=== PATIENT | male | born 1995 | race African-American/Black ===

== ENCOUNTER 2017-10-06 20:49 | Inpatient (IN) | payer OTHER ==
[~2017-10-06] VITALS: Ht 165.1 cm; Wt 129.0 kg
[~2017-10-06 20:49] MED LIST: PIPERACIL-TAZO 4.5 GM PREMIX 100 ML IV SCH
[2017-10-06 20:51] VITALS: BP 144/83; PULSE 116; RESP 16; TEMP 101.8; O2SAT 99
[2017-10-06 21:11] VITALS: BP 159/100; PULSE 156; RESP 24; TEMP 99; O2SAT 99
[2017-10-06] MEDS ORDERED: SODIUM CHLOR 0.9% 1000 ML INJ 1,000 ML IV ONE ×3 (21:26)
[2017-10-06] MEDS ORDERED: SODIUM CHLOR 0.9% 1000 ML INJ 600 ML IV ONE (21:26)
[2017-10-06] MEDS ORDERED: PIPERACIL-TAZO 4.5 GM PREMIX 100 ML IV ONE (21:30)
[2017-10-06] MEDS ORDERED: VANCOMYCIN INJ 1,000 MG in SODIUM CHLOR 0.9% 250 ML INJ 250 ML IV ONE (21:30)
--- NOTE | 2017-10-06 21:36 | PD ---
HPI Chief Complaint: GI Complaint Time Seen by Provider: 21:19 Travel History International Travel<30 days: No Contact w/Intl Traveler<30days: No Traveled to known affect area: No History of Present Illness HPI 22 yo m presenting to the ED with a cc of draining abscess on his scrotal region /inguinal region. He states that this began about one week ago and he tried home remedies with hot compresses. He brought the lesion to a head and it began draining a purulent foul smelling material. He does acknowledge fevers, chills, nausea, vomiting. No SOB or CP. No headaches or vision changes. He has not been sexually active in over a year. He does shave the inguinal region, mons pubis and scrotum. He states that he has had these numerous times in the past. [facility], [facility] Past Medical History Medical History: Denies Significant Hx Past Surgical History Surgical History: No Previous Surgery Social History Alcohol Use: Yes (RARE) Tobacco Use: No Substance Use: No Allergies-Medications (Allergen,Severity, Reaction): Coded Allergies: No Known Allergies (Unverified , 10/06/17) Review of Systems Except as stated in HPI: all other systems reviewed are Neg Physical Exam Narrative GENERAL: patient is laying in bed sweating appears ill. Morbidly obese SKIN: L inguinal region/pannus has a 5cm x 9cm necrotic ulcer with surrounding edema and erythema. There is purulent and foul smelling (smells of pseudomonas) acanthosis nigricans bilateral inguinal regions HEAD: Atraumatic. Normocephalic. EYES: Pupils equal and round. No scleral icterus. No injection or drainage. ENT: No nasal bleeding or discharge. Mucous membranes pink and moist. NECK: Trachea midline. No JVD. CARDIOVASCULAR: Tachycardia, with regular rhythm. 2+ but equal pulses in all 4 extremities. ENDOCRINE: Bedside glucose 421 RESPIRATORY: No accessory muscle use. Clear to auscultation. Breath sounds equal bilaterally. tachypneic GASTROINTESTINAL: Abdomen soft, moderately tender in the soft tissue area no crepitance is felt limited examination secondary to habitus., nondistended. Hepatic and splenic margins not palpable. MUSCULOSKELETAL: Extremities without clubbing, cyanosis, or edema. No obvious deformities. NEUROLOGICAL: Awake and alert. No obvious cranial nerve deficits. Motor grossly within normal limits. Five out of 5 muscle strength in the arms and legs. Normal speech. PSYCHIATRIC: Appropriate mood and affect; insight and judgment normal. Data Data Last Documented VS Vital Signs Date Time Temp Pulse Resp B/P (MAP) Pulse Ox O2 Delivery O2 Flow Rate FiO2 10/06/17 21:11 99.0 156 24 159/100 (119) 99 Room Air Orders Orders Sepsis Workup Initiated (10/06/17 ) Complete Blood Count With Diff (10/06/17 21:) Comprehensive Metabolic Panel (10/06/17 21:26) Prothrombin Time / Inr (Pt) (10/06/17 21:26) Act Partial Throm Time (Ptt) (10/06/17 21:26) Lactic Acid Sepsis Protocol (10/06/17 21:) Magnesium (Mg) (10/06/17 21:) Phosphorus (Po4) (10/06/17 21:) Lipase (10/06/17 21:) Ckmb (Isoenzyme) Profile (10/06/17 21:) Troponin I (10/06/17 21:) Urinalysis - C+S If Indicated (10/06/17 21:26) Blood Culture (10/06/17 21:26) Chest, Single Ap (10/06/17 21:26) Blood Glucose (10/06/17 21:26) Ecg Monitoring (10/06/17 21:) Iv Access Insert/Monitor (10/06/17 21:26) Oximetry (10/06/17 21:) Oxygen Administration (10/06/17 21:26) Ct Abd/Pel W Iv Contrast(Rout) (10/06/17 21:26) Sodium Chlor 0.9% 1000 Ml Inj (Ns 1000 M (10/06/17 21:26) Sodium Chlor 0.9% 1000 Ml Inj (Ns 1000 M (10/06/17 21:26) Sodium Chlor 0.9% 1000 Ml Inj (Ns 1000 M (10/06/17 21:26) Sodium Chlor 0.9% 1000 Ml Inj (Ns 1000 M (10/06/17 21:26) Vancomycin Inj (Vancomycin Inj) (10/06/17 21:30) Piperacil-Tazo 4.5 Gm Premix (Zosyn 4.5 (10/06/17 21:30) Blood Gas Venous (Vbg) (10/06/17 22:03) Westergren Sedimentation Rate (10/06/17 22:22) C-Reactive Protein (Crp) (10/06/17 22:22) Consult General Surgery (10/06/17 ) Clindamycin 900 Mg Premix (Cleocin 900 M (10/06/17 22:30) Iohexol 350 Inj (Omnipaque 350 Inj) (10/06/17 22:32) CKMB (10/06/17 21:45) CKMB% (10/06/17 21:45) Admit To Inpatient (10/06/17 ) Code Status (10/06/17 22:45) Vital Signs (Adult) KIMMY.Q1H (10/06/17 22:45) Activity Bed Rest (10/06/17 22:45) Elevate Head Of Bed (10/06/17 22:45) Intake + Output Q1H (10/06/17 22:45) Diet Npo (10/07/17 Breakfast) Sodium Chlor 0.9% 1000 Ml Inj (Ns 1000 M (10/06/17 22:45) Sodium Chloride 0.9% Flush (Ns Flush) (10/06/17 22:45) Sodium Chloride 0.9% Flush (Ns Flush) (10/07/17 09:00) Acetaminophen (Tylenol) (10/06/17 22:45) Morphine Inj (Morphine Inj) (10/06/17 22:45) Famotidine Inj (Pepcid Inj) (10/07/17 09:00) Ondansetron Inj (Zofran Inj) (10/06/17 22:45) Temazepam (Restoril) (10/06/17 22:45) Albuterol-Ipratropium Neb (Duoneb Neb) (10/06/17 22:45) Complete Blood Count With Diff (10/07/17 04:00) Comprehensive Metabolic Panel (10/07/17 04:00) Magnesium (Mg) (10/07/17 04:00) Phosphorus (Po4) (10/07/17 04:00) Lactic Acid (10/07/17 04:00) Chest, Single Ap (10/07/17 ) Pt Request For Service (10/06/17 22:45) Sales Project Coordinator / Telemetry KIMMY.Q8H (10/06/17 22:45) Heparin Inj (Heparin Inj) (10/06/17 22:45) ^ Initiate Protocol (10/06/17 22:45) Instruction (10/06/17 22:45) [facility] [facility] Information (10/06/17 22:45) Chlorhexidine 2% Cloth (Chlorhexidine 2% (10/07/17 04:00) Chlorhexidine 2% Cloth (Chlorhexidine 2% (10/06/17 22:45) Mrsa Pcr Surveillance (10/06/17 22:45) Docusate Sodium-Senna (Geraldine-Colace) (10/07/17 09:00) Magnesium Hydroxide Liq (Milk Of Magnesi (10/06/17 22:45) Sennosides (Senokot) (10/06/17 22:45) Bisacodyl Supp (Dulcolax Supp) (10/06/17 22:45) Lactulose Liq (Lactulose Liq) (10/06/17 22:45) Inpatient Certification (10/06/17 ) Admit Order (Ed Use Only) (10/06/17 ) Vancomycin Consult Pharmacy (Vancomycin (10/06/17 23:00) Piperacil-Tazo 4.5 Gm Premix (Zosyn 4.5 (10/06/17 05:00) ^ Medication Admin Instruction (10/06/17 22:50) Notify Dr: Other (10/06/17 22:50) Potassium Chlor 40 Meq Premix (Kcl 40 Me (10/06/17 23:00) Potassium Chlor 20 Meq Premix (Kcl 20 Me (10/06/17 23:00) Potassium Chloride Eff (K-Lyte Cl Eff) (10/06/17 23:00) Potassium Chlor 40 Meq Premix (Kcl 40 Me (10/06/17 23:00) Potassium Chlor 20 Meq Premix (Kcl 20 Me (10/06/17 23:00) Magnesium Sulfate Inj (Magnesium Sulfate (10/06/17 23:00) Magnesium Oxide (Mag-Ox) (10/06/17 23:00) Magnesium Sulfate Inj (Magnesium Sulfate (10/06/17 23:00) Potassium Phosphate (K-Phos) (10/06/17 23:00) Sodium Phosphate Inj (Sodium Phosphate I (10/06/17 23:00) Potassium Phosphate (K-Phos) (10/06/17 23:00) Potassium Phosphate Inj (Potassium Phosp (10/06/17 23:00) Clindamycin Inj (Cleocin Inj) (10/07/17 06:00) Labs Laboratory Tests Test 10/06/17 21:45 10/06/17 22:10 10/06/17 22:50 White Blood Count 23.2 TH/MM3 Red Blood Count 5.00 MIL/MM3 Hemoglobin 13.0 GM/DL Hematocrit 39.0 % Mean Corpuscular Volume 78.1 FL Mean Corpuscular Hemoglobin 26.1 PG Mean Corpuscular Hemoglobin Concent 33.4 % Red Cell Distribution Width 13.7 % Platelet Count 234 TH/MM3 Mean Platelet Volume 10.3 FL Neutrophils (%) (Auto) 87.7 % Lymphocytes (%) (Auto) 2.7 % Monocytes (%) (Auto) 9.4 % Eosinophils (%) (Auto) 0.0 % Basophils (%) (Auto) 0.2 % Neutrophils # (Auto) 20.4 TH/MM3 Lymphocytes # (Auto) 0.6 TH/MM3 Monocytes # (Auto) 2.2 TH/MM3 Eosinophils # (Auto) 0.0 TH/MM3 Basophils # (Auto) 0.0 TH/MM3 CBC Comment AUTO DIFF Differential Total Cells Counted 100 Neutrophils % (Manual) 75 % Band Neutrophils % 8 % Lymphocytes % 5 % Monocytes % 12 % Neutrophils # (Manual) 19.3 TH/MM3 Differential Comment FINAL DIFF MANUAL Platelet Estimate NORMAL Platelet Morphology Comment NORMAL Red Cell Morphology Comment NORMAL Erythrocyte Sedimentation Rate 45 mm/hr Prothrombin Time 11.5 SEC Prothromb Time International Ratio 1.0 RATIO Activated Partial Thromboplast Time 30.7 SEC Blood Urea Nitrogen 12 MG/DL Creatinine 1.02 MG/DL Random Glucose 396 MG/DL Total Protein 8.6 GM/DL Albumin 2.0 GM/DL Calcium Level 9.2 MG/DL Phosphorus Level 2.5 MG/DL Magnesium Level 1.6 MG/DL Alkaline Phosphatase 144 U/L Aspartate Amino Transf (AST/SGOT) 40 U/L Alanine Aminotransferase (ALT/SGPT) 20 U/L Total Bilirubin 0.9 MG/DL Sodium Level 119 MEQ/L Potassium Level 4.5 MEQ/L Chloride Level 85 MEQ/L Carbon Dioxide Level 17.5 MEQ/L Anion Gap 17 MEQ/L Estimat Glomerular Filtration Rate 112 ML/MIN Lactic Acid Level 2.4 mmol/L Total Creatine Kinase 106 U/L Creatine Kinase MB LESS THAN 0.5 NG/ML Troponin I LESS THAN 0.02 NG/ML C-Reactive Protein 34.00 MG/DL Lipase 55 U/L Blood Gas Puncture Site DRAWN BY RN Blood Gas Patient Temperature 37.0 Venous Blood pH 7.38 Venous Blood Partial Pressure CO2 29 mmHg Venous Blood Partial Pressure O2 29 mmHg Venous Blood HCO3 17 mmol/L Venous Blood Oxygen Saturation 51 % Venous Blood Oxygen Content 11.2 Vol % Venous Blood Base Excess -7.2 mmol/L Oxygen Delivery Device ROOM AIR Blood Gas Inspired Oxygen 21 % Urine Color YELLOW Urine Turbidity CLEAR Urine pH 6.0 Urine Specific [employer] 1.020 Urine Protein 30 mg/dL Urine Glucose (UA) 1000 mg/dL Urine Ketones 40 mg/dL Urine Occult Blood TRACE Urine Nitrite NEG Urine Bilirubin NEG Urine Urobilinogen 2.0 MG/DL Urine Leukocyte Esterase NEG Urine RBC 1 /hpf Urine WBC 2 /hpf Microscopic Urinalysis Comment CATH-CULT NOT IND MDM Medical Decision Making Medical Screen Exam Complete: Yes Emergency Medical Condition: Yes Differential Diagnosis Cellulitis, Abscess, Necrotizing fasciitis, gangrene, SEPSIS, DKA, hyperglycemia Narrative Course CBC, CMP, ESR, CRP, Lactate, CT abdomen/pelvis, VBG, Urinalysis, General surgery consult, Vanc/Zosyn, bolus 30cc/Kg. Patient roomed in emergency department, although crepitance is felt patient does have necrotic center and appears very ill. Vital signs meet surgical criteria already and the patient was started on vancomycin and Zosyn. Bedside glucose was in excess of 400 diagnosing him with diabetes tonight. Patient was taken expeditiously to CAT scan where a contrasted CAT scan shows significant subcutaneous air increasing suspicion for necrotizing fasciitis of the abdominal wall. Dr. Valles was paged at [phone]. Coverage was expanded to include clindamycin for anaerobic coverage. Patient discussed with Dr. Marie at [phone] preparing for [facility] admission. Still awaiting callback from Dr. Valles At 2300 the results were discussed with the patient and recommended ICU admission and he is agreeable. His received 2 L normal saline at this time the heart rate remains elevated. Spoke to Dr. Marie [phone], he states that per Dr. Mackenzie current procedure is to communicate with the intensive care unit physician and once cleared for surgery that's when the patient should have operative debridement. This recommendation was discussed with Dr. Marie at 2315 who is in route to see the patient. At 2330 Dr. Marie is at the bedside and agrees that the benefits outweigh the risks for surgery. Dr. Valles has been paged again. At [address] Valles that he needs to come in and see the patient now. Dr. Valles informs me that he is already on his way in to the hospital. Critical Care Narrative Aggregate critical care time was 35 minutes. Time to perform other separately billable procedures was not included in the critical care time. My time did not include minutes spent treating any other patients simultaneously or on activities that did not directly contribute to the patient's treatment. The services I provided to this patient were to treat and/or prevent clinically significant deterioration that could result in: , disability, organ failure. I provided critical care services requiring my management, as noted below: Chart data review, documentation time, medication orders and management, vital sign assessments/reviewing monitor data, ordering and reviewing lab tests, ordering and interpreting/reviewing x-rays and diagnostic studies, care of the patient and discussion of the patient with the admitting physicians. Diagnosis Primary Impression: Sepsis Additional Impressions: Severe sepsis Necrotizing fasciitis Admitting Information Admitting Physician Requests: Admit Condition: Critical Ishan Hurt MD Oct 06, 2017 21:36
[2017-10-06 22:00] VITALS: BP 162/96; PULSE 150; RESP 27; O2SAT 100
[2017-10-06 22:15] LABS: AUTOMATED NEUTROPHIL # 20.4 TH/MM3 (1.8-7.7); BASOPHIL % 0.2 % (0.0-2.0); LYMPH % 2.7 % (9.0-44.0); LYMPHOCYTE # 0.6 TH/MM3 (1.0-4.8); MEAN CELL VOLUME 78.1 FL (80.0-100.0); MEAN CORPUSCULAR HEMOGLOBIN 26.1 PG (27.0-34.0); MEAN CORPUSCULAR HGB CONC 33.4 % (32.0-36.0); MONO % 9.4 % (0.0-8.0); NEUT % 87.7 % (16.0-70.0); PLATELET COUNT 234 TH/MM3 (150-450); RED CELL DISTRIBUTION WIDTH 13.7 % (11.6-17.2); WHITE BLOOD COUNT 23.2 TH/MM3 (4.0-11.0)
[2017-10-06 22:18] LABS: APTT (PATIENT) 30.7 SEC (24.3-30.1); HEMO FLAGS AUTO DIFF; PROTHROMBIN TIME - PATIENT 11.5 SEC (9.8-11.6)
[2017-10-06 22:22] LABS: BLOOD GAS VENOUS BASE EXCESS -7.2 mmol/L (-2-2); BLOOD GAS VENOUS HCO3 17 mmol/L (22-26); BLOOD GAS VENOUS O2 CONTENT 11.2 Vol % (9.0-17.0); BLOOD GAS VENOUS O2 HGB SAT 51 % (70-76); BLOOD GAS VENOUS PCO2 29 mmHg (44-48); BLOOD GAS VENOUS PO2 29 mmHg (35-40); BLOOD GAS VENOUS pH 7.38 (7.360-7.400); CRITICAL VALUE YES; OXYGEN DEVICE ROOM AIR
[2017-10-06 22:23] LABS: FIO2 21 %; STAT YES
--- NOTE | 2017-10-06 22:27 | RADRPT ---
EXAM DATE/TIME: 10/06/2017 22:17 [facility] COMPARISON: No previous studies available for comparison. INDICATIONS : Fever and chest pain. MEDICAL HISTORY : None. SURGICAL HISTORY : None. ENCOUNTER: Initial ACUITY: 3 days PAIN SCORE: 3/10 LOCATION: chest FINDINGS: A single view of the chest demonstrates the lungs to be symmetrically aerated without evidence of mas s, infiltrate or effusion. The cardiomediastinal contours are unremarkable. Osseous structures are intact. CONCLUSION: The lungs are clear. Issac Romano MD on October 06, 2017 at 22:25 Board Certified Radiologist. This report was verified electronically.
[2017-10-06] MEDS ORDERED: CLINDAMYCIN 900 MG/DEX PREMIX 50 ML IV ONE (22:30)
[2017-10-06] MEDS ORDERED: IOHEXOL 350 MG/ML 10 ML VIAL (for RAD DIAG) IVCONTRAST ONE (22:32)
[2017-10-06 22:35] LABS: ALKALINE PHOSPHATASE 144 U/L (45-117); ALT (GPT) 20 U/L (12-78); ANION GAP 17 MEQ/L (5-15); AST (GOT) 40 U/L (15-37); BICARBONATE 17.5 MEQ/L (21.0-32.0); BLOOD UREA NITROGEN 12 MG/DL (7-18); CHLORIDE 85 MEQ/L (98-107); CREATINE KINASE 106 U/L (39-308); GLOMERULAR FILTRATION RATE 112 ML/MIN (>89); MAGNESIUM 1.6 MG/DL (1.5-2.5); TOTAL BILIRUBIN ADULT 0.9 MG/DL (0.2-1.0)
[2017-10-06 22:45] LABS: POTASSIUM 4.5 MEQ/L (3.5-5.1)
[2017-10-06] MEDS ORDERED: LACTULOSE SYRUP 20 GM/30 ML CUP PO PRN (22:45)
[2017-10-06] MEDS ORDERED: SODIUM CHLORIDE 0.9% FLUSH 10 ML FLUSH IV FLUSH PRN (22:45)
[2017-10-06] MEDS ORDERED: MISCELLANEOUS NURSING INFORMATION XX SCH (22:45)
[2017-10-06] MEDS ORDERED: CHLORHEXIDINE GLUCONATE 2 % 1 PACK (2 CLOTHS) TOP PRN (22:45)
[2017-10-06] MEDS ORDERED: BISACODYL 10 MG SUPP RECTAL PRN (22:45)
[2017-10-06] MEDS ORDERED: MAGNESIUM HYDROXIDE SUSP 30 ML CUP PO PRN (22:45)
[2017-10-06] MEDS ORDERED: SENNOSIDES 8.6 MG TAB PO PRN (22:45)
[2017-10-06] MEDS ORDERED: RESP: ALBUTEROL 2.5 MG/IPRATROPIUM 0.5 MG NEB (PRN) INH (22:45)
[2017-10-06] MEDS ORDERED: ONDANSETRON HCL 4 MG/2 ML VIAL IV PUSH PRN (22:45)
[2017-10-06 22:48] LABS: SODIUM (NA) 119 MEQ/L (136-145)
--- NOTE | 2017-10-06 22:50 | RADRPT ---
EXAM DATE/TIME: 10/06/2017 22:23 [facility] COMPARISON: No previous studies available for comparison. INDICATIONS : Sepsis. IV CONTRAST: 98 cc Omnipaque 350 (iohexol) IV ORAL CONTRAST: No oral contrast ingested. RADIATION DOSE: 21.96 CTDIvol (mGy) MEDICAL HISTORY : None SURGICAL HISTORY : None. ENCOUNTER: Initial ACUITY: 1 day PAIN SCALE: 7/10 LOCATION: abdomen TECHNIQUE: Volumetric scanning of the abdomen and pelvis was performed. Using automated exposure control and ad justment of the mA and/or kV according to patient size, radiation dose was kept as low as reasonably achievable to obtain optimal diagnostic quality images. DICOM format image data is available electro nically for review and comparison. FINDINGS: LOWER LUNGS: The visualized lower lungs are clear. LIVER: Homogeneous density without lesion. There is no dilation of the biliary tree. No calcified gallston es. SPLEEN: Normal size without lesion. PANCREAS: Within normal limits. KIDNEYS: Absent right kidney. Hypertrophy of the left kidney measuring 15 cm. There is absence of the renal sinus fat but no definite evidence of hydronephrosis. No calcified renal stones. ADRENAL GLANDS: Within normal limits. VASCULAR: There is no aortic aneurysm. BOWEL/MESENTERY: There are a few gaseous distended loops of small bowel which measure up to 2.9 cm. No air fluid leve ls seen. No evidence of free fluid in the pelvis. ABDOMINAL WALL: There is thickening of the soft tissues of the left lower quadrant anterior and lateral abdominal wal l and multiple collections of gas in the subcutaneous tissues in an area that measures in excess of 1 7 cm. There appears to be discontinuity of the skin and lower lateral. The indurated soft subcutane ous tissues measures in excess of 10 cm in thickness. Induration is present both superficial and jonny p Roe's fascia. The lateral abdominal musculature is symmetric and normal in appearance. Indurat ion does extend into the left inguinal region. RETROPERITONEUM: There is no lymphadenopathy. BLADDER: No wall thickening or mass. REPRODUCTIVE: Within normal limits. INGUINAL: There are several prominent left inguinal lymph nodes which measure up to 1.8 cm in dimension. MUSCULOSKELETAL: Within normal limits for patient age. CONCLUSION: 1. Abnormal subcutaneous tissues in the left lower quadrant with a large area of discharged gas, surr ounding induration of the fat and extension into the left inguinal region. 2. Absent right kidney. Issac Romano MD on October 06, 2017 at 22:43 Board Certified Radiologist. This report was verified electronically.
--- NOTE | 2017-10-06 22:58 | HHI.HP ---
HPI Service Critical Care Medicine Primary Care Physician No Primary Care Physician Admission Diagnosis Severe Sepsis, Necrotizing Fasciitis. Diagnosis: Travel History International Travel<30 Days: No Contact w/Intl Traveler <30 Da: No Traveled to Known Affected Are: No History of Present Illness 22-year-old morbidly obese very pleasant gentleman presents with complaints of draining abscess on his scrotal region/inguinal region. He states that this began about one week ago and he tried home remedies with hot compresses. The lesion began draining a purulent foul smelling material. He does admit fevers, chills, nausea, vomiting. No SOB or CP. No headaches or vision changes. He has not been sexually active in over a year. He does shave the inguinal region, mons pubis and scrotum. He states that he has had these numerous times in the past. Review of Systems Constitutional: COMPLAINS OF: Diaphoretic episodes, Fatigue, Fever, Chills, Dizziness, Change in appetite, Night Sweats, DENIES: Weight gain, Weight loss Endocrine: DENIES: Heat/cold intolerance, Polydipsia, Polyuria, Polyphagia Eyes: DENIES: Blurred vision, Diplopia, Eye inflammation, Eye pain, Vision loss , Photosensitivity, Double Vision Ears, nose, mouth, throat: DENIES: Tinnitus, Hearing loss, Vertigo, Nasal discharge, Oral lesions, Throat pain, Hoarseness, Ear Pain, Running Nose, Epistaxis, Sinus Pain, Toothache, Odynophagia Respiratory: DENIES: Apneas, Cough, Snoring, Wheezing, Hemoptysis, Sputum production, Shortness of breath Cardiovascular: DENIES: Chest pain, Palpitations, Syncope, Dyspnea on Exertion , PND, Lower Extremity Edema, Orthopnea, Claudication Gastrointestinal: COMPLAINS OF: Nausea, Vomiting, Anorexia, DENIES: Abdominal pain, Black stools, Bloody stools, Constipation, Diarrhea, Difficulty Swallowing Genitourinary: DENIES: Sexual dysfunction, Urinary frequency, Urinary incontinence, Urgency, Hematuria, Dysuria, Nocturia, Penile Discharge, Testicular Pain, Testicular Swelling Musculoskeletal: DENIES: Joint pain, Muscle aches, Stiffness, Joint Swelling, Back pain, Neck pain Integumentary: DENIES: Abnormal pigmentation, Nail changes, Pruritus, Rash Hematologic/lymphatic: DENIES: Bruising, Lymphadenopathy Immunologic/allergic: DENIES: Eczema, Urticaria Neurologic: DENIES: Abnormal gait, Headache, Localized weakness, Paresthesias, Seizures, Speech Problems, Tremor, Poor Balance Psychiatric: DENIES: Anxiety, Confusion, Mood changes, Depression, Hallucinations, Agitation, Suicidal Ideation, Homicidal Ideation, Delusions Past Family Social History Allergies: Coded Allergies: No Known Allergies (Unverified , 10/06/17) Past Medical History Denies significant past medical history Past Surgical History No previous surgeries Reported Medications No active medications Active Ordered Medications Current Medications Medications (Trade) Dose Ordered Sig/Josh Route PRN Reason Start Time Stop Time Status Last Admin Dose Admin Clindamycin Phosphate/Dextrose 50 ml @ 100 mls/hr ONCE ONCE IV 10/06/17 22:30 10/06/17 22:59 Sodium Chloride 1,000 ml @ 154 mls/hr Q6H30M IV 10/06/17 22:45 Sodium Chloride (NS Flush) 2 ml UNSCH PRN IV FLUSH FLUSH AFTER USING IV ACCESS 10/06/17 22:45 Sodium Chloride (NS Flush) 2 ml BID IV FLUSH 10/07/17 09:00 UNV Acetaminophen (Tylenol) 650 mg Q6H PRN PO PAIN 1-5 AND/OR FEVER >101F 10/06/17 22:45 Morphine Sulfate (Morphine Inj) 2 mg Q2H PRN IV PUSH PAIN SCALE 6 TO 10 10/06/17 22:45 UNV Famotidine (Pepcid Inj) 20 mg Q12HR IV PUSH 10/07/17 09:00 Ondansetron HCl (Zofran Inj) 4 mg Q6H PRN IV PUSH NAUSEA OR VOMITING 10/06/17 22:45 UNV Temazepam (Restoril) 15 mg HS PRN PO INSOMNIA 10/06/17 22:45 UNV Albuterol/ Ipratropium (Duoneb Neb) 1 ampule Q2HR NEB PRN INH WHEEZING 10/06/17 22:45 UNV Heparin Sodium (Porcine) (Heparin Inj) 5,000 units Q8HR SQ 10/06/17 22:45 Miscellaneous Information 1 Q361D XX 10/06/17 22:45 Chlorhexidine Gluconate (Chlorhexidine 2% Cloth) 3 pack Taper DAILY@04 TOP 10/07/17 04:00 10/03/18 03:59 Chlorhexidine Gluconate (Chlorhexidine 2% Cloth) 3 pack UNSCH PRN TOP HYGIENIC CARE 10/06/17 22:45 Senna/Docusate Sodium (Geraldine-Colace) 1 tab BID PO 10/07/17 09:00 Magnesium Hydroxide (Milk Of Magnesia Liq) 30 ml Q12H PRN PO Mild constipation 10/06/17 22:45 UNV Sennosides (Senokot) 17.2 mg Q12H PRN PO Moderate constipation 10/06/17 22:45 UNV Bisacodyl (Dulcolax Supp) 10 mg DAILY PRN RECTAL SEVERE CONSITIPATION 10/06/17 22:45 Lactulose (Lactulose Liq) 30 ml DAILY PRN PO SEVERE CONSITIPATION 10/06/17 22:45 Pharmacy Profile Note 0 ml @ 0 mls/hr UNSCH OTHER 10/06/17 23:00 UNV Piperacillin Sod/ Tazobactam Sod 100 ml @ 200 mls/hr Q6H IV 10/06/17 23:00 UNV Clindamycin Phosphate 600 mg/ Sodium Chloride 104 ml @ 208 mls/hr Q6H IV 10/06/17 23:00 UNV Family History No family history significant of cancer Social History Alcohol Use: Yes (RARE) Tobacco Use: No Substance Use: No Physical Exam Vital Signs Vital Signs Date Time Temp Pulse Resp B/P (MAP) Pulse Ox O2 Delivery O2 Flow Rate FiO2 10/06/17 21:11 99.0 156 24 159/100 (119) 99 Room Air 10/06/17 20:51 101.8 116 16 144/83 (103) 99 Room Air Physical Exam GENERAL: Morbidly obese young gentleman in the significant distress SKIN: Left inguinal region/pannus has a 5cm x 9cm necrotic ulcer with surrounding edema and erythema. There is purulent and foul smelling discharge HEAD: Atraumatic. Normocephalic. EYES: Pupils equal and round. No scleral icterus. No injection or drainage. ENT: No nasal bleeding or discharge. Mucous membranes pink and moist. NECK: Trachea midline. No JVD. CARDIOVASCULAR: Tachycardia, with regular rhythm. 2+ but equal pulses in all 4 extremities. ENDOCRINE: Bedside glucose 421 RESPIRATORY: No accessory muscle use. Clear to auscultation. Breath sounds equal bilaterally GASTROINTESTINAL: Abdomen soft, moderately tender in the soft tissue area no crepitans is felt limited examination secondary to habitus., nondistended. Hepatic and splenic margins not palpable. MUSCULOSKELETAL: Extremities without clubbing, cyanosis, or edema. No obvious deformities. NEUROLOGICAL: Awake and alert. No obvious cranial nerve deficits. Motor grossly within normal limits. Five out of 5 muscle strength in the arms and legs. Normal speech. PSYCHIATRIC: Appropriate mood and affect; insight and judgment normal. Laboratory Laboratory Tests Test 10/06/17 21:45 10/06/17 22:10 White Blood Count 23.2 Red Blood Count 5.00 Hemoglobin 13.0 Hematocrit 39.0 Mean Corpuscular Volume 78.1 Mean Corpuscular Hemoglobin 26.1 Mean Corpuscular Hemoglobin Concent 33.4 Red Cell Distribution Width 13.7 Platelet Count 234 Mean Platelet Volume 10.3 Neutrophils (%) (Auto) 87.7 Lymphocytes (%) (Auto) 2.7 Monocytes (%) (Auto) 9.4 Eosinophils (%) (Auto) 0.0 Basophils (%) (Auto) 0.2 Neutrophils # (Auto) 20.4 Lymphocytes # (Auto) 0.6 Monocytes # (Auto) 2.2 Eosinophils # (Auto) 0.0 Basophils # (Auto) 0.0 CBC Comment AUTO DIFF Erythrocyte Sedimentation Rate 45 Prothrombin Time 11.5 Prothromb Time International Ratio 1.0 Activated Partial Thromboplast Time 30.7 Blood Urea Nitrogen 12 Creatinine 1.02 Random Glucose 396 Total Protein 8.6 Albumin 2.0 Calcium Level 9.2 Phosphorus Level 2.5 Magnesium Level 1.6 Alkaline Phosphatase 144 Aspartate Amino Transf (AST/SGOT) 40 Alanine Aminotransferase (ALT/SGPT) 20 Total Bilirubin 0.9 Sodium Level 119 Potassium Level 4.5 Chloride Level 85 Carbon Dioxide Level 17.5 Anion Gap 17 Estimat Glomerular Filtration Rate 112 Lactic Acid Level 2.4 Total Creatine Kinase 106 Troponin I LESS THAN 0.02 Lipase 55 Blood Gas Puncture Site DRAWN BY RN Blood Gas Patient Temperature 37.0 Venous Blood pH 7.38 Venous Blood Partial Pressure CO2 29 Venous Blood Partial Pressure O2 29 Venous Blood HCO3 17 Venous Blood Oxygen Saturation 51 Venous Blood Oxygen Content 11.2 Venous Blood Base Excess -7.2 Oxygen Delivery Device ROOM AIR Blood Gas Inspired Oxygen 21 Date/Time Source Procedure Growth Status 10/06/17 21:45 Blood Peripheral Aerobic Blood Culture Pending Received 10/06/17 21:45 Blood Peripheral Anaerobic Blood Culture Pending Received Result Diagram: 10/06/17214410/06/172144 Imaging Last 24 hours Impressions Chest X-Ray 10/06/172125 Signed Impressions: Service Date/Time: Friday, October 06, 2017 22:17 - CONCLUSION: The lungs are clear. MD Crystal Ceron VTE Risk Assessment Crystal VTE Risk Assessment: Mod/High Risk (score >= 2) Caprini Risk Assessment Model Point Value = 1 Point Value = 2 Point Value = 3 Point Value = 5 Age 41-60 Minor surgery BMI > 25 kg/m2 Swollen legs Varicose veins or History of unexplained or recurrent spontaneous Oral contraceptives or hormone replacement Sepsis (< 1 month) Serious lung disease, including pneumonia (< 1 month) Abnormal pulmonary function Acute myocardial infarction Congestive heart failure (< 1 month) History of inflammatory bowel disease Medical patient at bed rest Age 61-74 Arthroscopic surgery Major open surgery (> 45 min) Laparoscopic surgery (> 45 min) Malignancy Confined to bed (> 72 hours) Immobilizing plaster cast Central venous access Age >= 75 History of VTE Family history of VTE Factor V Leiden Prothrombin [id number] Lupus anticoagulant Anticardiolipin antibodies Elevated serum homocysteine Heparin-induced thrombocytopenia Other congenital or acquired thrombophilia Stroke (< 1 month) Elective arthroplasty Hip, pelvis, or leg fracture Acute spinal cord injury (< 1 month) Prophylaxis Regimen Total Risk Factor Score Risk Level Prophylaxis Regimen 0-1 Low Early ambulation 2 Moderate Order ONE of the following: *Sequential Compression Device (SCD) *Heparin 5000 units SQ BID 3-4 Higher Order ONE of the following medications: *Heparin 5000 units SQ TID *Enoxaparin/Lovenox 40 mg SQ daily (WT < 150 kg, CrCl > 30 mL/min) *Enoxaparin/Lovenox 30 mg SQ daily (WT < 150 kg, CrCl > 10-29 mL/min) *Enoxaparin/Lovenox 30 mg SQ BID (WT < 150 kg, CrCl > 30 mL/min) AND/OR *Sequential Compression Device (SCD) 5 or more Highest Order ONE of the following medications: *Heparin 5000 units SQ TID (Preferred with Epidurals) *Enoxaparin/Lovenox 40 mg SQ daily (WT < 150 kg, CrCl > 30 mL/min) *Enoxaparin/Lovenox 30 mg SQ daily (WT < 150 kg, CrCl > 10-29 mL/min) *Enoxaparin/Lovenox 30 mg SQ BID (WT < 150 kg, CrCl > 30 mL/min) AND *Sequential Compression Device (SCD) Assessment and Plan Assessment and Plan Necrotizing fasciitis - STAT surgical consultation - Vancomycin, Zosyn, clindamycin - Blood cultures - Further management per surgeon Hyperglycemia - No history of diabetes - Most likely new onset - Insulin drip - Hemoglobin A1c a.m. Hyponatremia - Sodium level 119 - Corrected sodium 126 - IV fluid replacement DVT GI prophylaxis - Teds SCDs - Subcutaneous heparin - Pepcid Critical Care: The total critical care time was 35 minutes. Time to perform other separately billable procedures was not included in the critical care time. Broderick Marie MD Oct 06, 2017 10:58 pm
[2017-10-06] MEDS ORDERED: POTASSIUM PHOSPHATE MONOBASIC 500 MG TAB PO/TUBE PRN (23:00)
[2017-10-06] MEDS ORDERED: SODIUM PHOSPHATE INJ 30 MMOL in SODIUM CHLOR 0.9% 250 ML INJ 240 ML IV PRN (23:00)
[2017-10-06] MEDS ORDERED: POTASSIUM PHOSPHATE MONOBASIC 500 MG TAB PO PRN (23:00)
[2017-10-06] MEDS ORDERED: DEXTROSE 50% IN WATER 50 ML VIAL(D50) IV PUSH PRN (23:00)
[2017-10-06] MEDS ORDERED: MAGNESIUM OXIDE 400 MG TAB PO PRN (23:00)
[2017-10-06] MEDS ORDERED: MAGNESIUM SULFATE INJ 4 GM in SODIUM CHLORIDE 0.9% INJ 92 ML IV PRN (23:00)
[2017-10-06] MEDS ORDERED: Vancomycin Consult Pharmacy 1 EA OTHER SCH (23:00)
[2017-10-06] MEDS ORDERED: POTASSIUM CHLOR 20 MEQ PREMIX 100 ML IV PRN (23:00)
[2017-10-06] MEDS ORDERED: POTASSIUM CHLORIDE 25 MEQ EFFERVESCENT TAB PO PRN (23:00)
[2017-10-06] MEDS ORDERED: MAGNESIUM SULFATE INJ 2 GM in SODIUM CHLORIDE 0.9% INJ 96 ML IV PRN (23:00)
[2017-10-06] MEDS ORDERED: GLUCAGON 1 MG/ML VIAL OTHER PRN (23:00)
[2017-10-06] MEDS ORDERED: POTASSIUM PHOSPHATE INJ 30 MMOL in SODIUM CHLOR 0.9% 250 ML INJ 250 ML IV PRN (23:00)
[2017-10-06] MEDS ORDERED: POTASSIUM CHLOR 40 MEQ PREMIX 100 ML IV PRN ×2 (23:00)
[2017-10-06 23:02] LABS: CKMB LESS THAN 0.5 NG/ML (0.5-3.6)
[2017-10-06 23:06] VITALS: O2SAT 99
[2017-10-06 23:06] LABS: BANDS 8 % (0-6); NEUTROPHIL # MANUAL DIFF 19.3 TH/MM3 (1.8-7.7); POLYS (SEG NEUTROPHILS) 75 % (16-70); WBC DIFF SAMPLE 100
[2017-10-06 23:07] LABS: PLATELET ESTIMATE SMEAR NORMAL (NORMAL); PLATELET MORPHOLOGY NORMAL (NORMAL); SCAN/DIFF FINAL DIFF MANUAL
[2017-10-06 23:13] LABS: BLOOD, URINE TRACE (NEG); GLUCOSE,URINE 1000 mg/dL (NEG); KETONE, URINE 40 mg/dL (NEG); NITRITE,URINE NEG (NEG); URINE COLOR YELLOW (YELLW/STRAW)
[2017-10-06 23:15] LABS: COMMENT (UR) CATH-CULT NOT IND; CULTURE IF INDICATED CATH CULTURE NOT IND
[2017-10-06 23:30] VITALS: BP 152/84; PULSE 140; RESP 14; O2SAT 98
[2017-10-06] MEDS: SODIUM CHLOR 0.9% 1000 ML INJ 1,000 ML IV SCH (23:41)
[2017-10-07] VITALS (11 sets, daily range): BP systolic 101–129; BP diastolic 55–65; PULSE 119–135; RESP 16–26; TEMP 99.5–101.7; O2SAT 92–99
[2017-10-07 00:02] LABS: LACTIC ACID GHOST NOT REPORTABLE
[2017-10-07] MEDS ORDERED: DEXTROSE 50% IN WATER 50 ML VIAL(D50) IV PUSH PRN ×2 (00:15→03:45)
[2017-10-07] MEDS ORDERED: MISC INFORMATION OTHER ONE ×2 (00:15→03:45)
[2017-10-07] MEDS ORDERED: VANCOMYCIN INJ 1,500 MG in SODIUM CHLORID 0.9% 500 ML INJ 500 ML IV ONE (02:00)
--- NOTE | 2017-10-07 02:34 | HHI.PR ---
Immediate Post Op Note Procedure Date: Oct 07, 2017 Pre Op Diagnosis: (1) Necrotizing fasciitis (2) Severe sepsis Post Op Diagnosis: (1) Necrotizing fasciitis (2) Severe sepsis Surgeon: Abebe Verduzco Systems Design Engineer(s): staff Procedure: debridement of abdominal wall necrotizing soft tissue infection, 15cm x 25cm Findings: necrotizing soft tissue infection limited to skin, fat, fascia and muscle, not involving intraabdominal organs Complications: none Specimen(s) removed: skin/soft tissues Estimated blood loss: 100ml Anesthesia: General Drains: None IVF Patient to: PACU Patient Condition: Critical Abebe Verduzco MD Oct 07, 2017 02:34
[2017-10-07] MEDS: SODIUM CHLOR 0.9% 1000 ML INJ 1,000 ML IV SCH ×3 (03:25→20:03)
[2017-10-07] MEDS ORDERED: DO NOT ADM ANY ANTICOAGULANT DRUGS PRN (03:30)
[2017-10-07] MEDS: CHLORHEXIDINE GLUCONATE 2 % 1 PACK (2 CLOTHS) TOP SCH (04:00)
[2017-10-07] MEDS: INSULIN REGULAR (IV INFUSION) 100 UNITS in SODIUM CHLORIDE 0.9% INJ 99 ML IV PRN ×2 (04:30→20:03)
[2017-10-07] MEDS: CLINDAMYCIN 600 MG/DEX PREMIX 50 ML IV SCH ×3 (05:43→12:24)
[2017-10-07] MEDS: HEPARIN SODIUM - SQ 10,000 UNITS/ML VIAL SQ SCH ×3 (06:00→19:59)
[2017-10-07] MEDS: PIPERACIL-TAZO 4.5 GM PREMIX 100 ML IV SCH ×3 (06:02→18:26)
--- NOTE | 2017-10-07 06:18 | RADRPT ---
EXAM DATE/TIME: 10/07/2017 05:05 [facility] COMPARISON: CHEST SINGLE AP, October 06, 2017, 22:17. INDICATIONS : Fever. MEDICAL HISTORY : None. SURGICAL HISTORY : None. ENCOUNTER: Subsequent ACUITY: 2 days PAIN SCORE: Non-responsive. LOCATION: Bilateral chest FINDINGS: A single view of the chest demonstrates the lungs to be symmetrically aerated without evidence of mas s, infiltrate or effusion. The cardiomediastinal contours are unremarkable. Osseous structures are intact. CONCLUSION: No acute disease. There is no evidence of pneumonia. Yang Castillo MD on October 07, 2017 at 6:17 Board Certified Radiologist. This report was verified electronically.
[2017-10-07 06:25] LABS: AUTOMATED NEUTROPHIL # 12.8 TH/MM3 (1.8-7.7); BASOPHIL % 0.2 % (0.0-2.0); HEMATOCRIT 30.8 % (39.0-51.0); HEMO FLAGS DIFF FINAL; LYMPH % 4.1 % (9.0-44.0); LYMPHOCYTE # 0.6 TH/MM3 (1.0-4.8); MEAN CELL VOLUME 78.2 FL (80.0-100.0); MEAN CORPUSCULAR HEMOGLOBIN 25.6 PG (27.0-34.0); MEAN CORPUSCULAR HGB CONC 32.7 % (32.0-36.0); MONO % 9.4 % (0.0-8.0); NEUT % 86.3 % (16.0-70.0); PLATELET COUNT 181 TH/MM3 (150-450); RED BLOOD COUNT 3.94 MIL/MM3 (4.50-5.90); RED CELL DISTRIBUTION WIDTH 13.6 % (11.6-17.2); WHITE BLOOD COUNT 14.9 TH/MM3 (4.0-11.0)
--- NOTE | 2017-10-07 06:57 | MP ---
cc: SOBIA HAMMER DATE OF SURGERY: 10/07/2017 PREOPERATIVE DIAGNOSIS: Necrotizing soft tissue infection of the abdominal wall, left lower quadrant. POSTOPERATIVE DIAGNOSIS Necrotizing soft tissue infection of the abdominal wall, left lower quadrant. PROCEDURE Excisional debridement of necrotizing and necrotic tissue, left abdominal wall, skin, subcutaneous tissue, fascia and muscle from the left inguinal crease, upward to the left of midline, 15 x 25 cm. SURGEON: Sobia Hammer MD. TRIM STENCIL MAKER: Staff. ANESTHESIA: General. BLOOD LOSS: 100 cc COMPLICATIONS: None. FINDINGS: Severe necrotizing soft tissue infection involving muscle, fascia, subcutaneous tissue and skin. INDICATIONS FOR PROCEDURE The patient is a 22-year-old male, diagnosed diabetic, who developed a superficial skin infection several days ago. He did not seek treatment for this and became extensively worsened and started draining foul-smelling fluid from the left lower abdomen. The patient was seen at [facility] for evaluation including CT scan which showed a large soft tissue infection. General surgery was consulted and the patient was recommended to undergo excisional debridement and health and safety representative was consulted for ICU admission due to the patient's sepsis. DESCRIPTION OF PROCEDURE: The patient was taken to the operating room emergently for soft tissue infection. The patient underwent endotracheal anesthesia and intubation. The patient's left thigh and abdominal wall were prepped and draped in sterile fashion. Time out was performed. The Bovie electrocautery was used to excise the area of the left abdominal wall skin that was clearly necrotic. With the cautery device function we took this down to the subcutaneous tissue and down to the fascia of the abdominal wall and inguinal crease. We continued to debride skin and subcutaneous fat laterally until we had good healthy bleeding skin edges. This wound was 15 x 25 cm. We continued debriding deeply until we encountered multiple muscle layers to the transversalis fascia laterally and tissue of the thigh, again which was opened up and debrided using the Bovie electrocautery. We continued with meticulous removal of necrotic tissue until we essentially removed all gross nonviable tissue from the wound. We irrigated the wound thoroughly with saline. At this point and time we packed the wound with saline-soaked gauze and ABD pads. The patient was taken to the PACU in critical condition after anesthesia. The patient tolerated the procedure well. No apparent complications. All counts were correct. I was present and scrubbed throughout the entire procedure. MD АНДРЕЙ Spencer/SANNA /2:43 AM /6:46 AM
--- NOTE | 2017-10-07 07:01 | MB ---
cc: SOBIA HAMMER ROBERT J. MD VODA,MARY COCHRAN DATE OF CONSULTATION: 10/06/2017 REQUESTING PHYSICIAN: Dr. Concepcion Marie REASON FOR CONSULTATION: Necrotizing soft tissue infection. HISTORY OF PRESENT ILLNESS The patient is a 22 year-old -[place] male who presented to [facility] with seven days of increasing pain, swelling and drainage of his left abdominal wall. The patient states it started draining two days ago and felt a foul-smell. The patient states he has no medical problems. He is a diabetic. He has had no previous history of infection, although his sugars of note were in the 400s on admission. The patient underwent imaging in the emergency department which did show air in the subcutaneous tissue around the wound consistent with necrotizing infection. General surgery was consulted stat. REVIEW OF SYSTEMS 12-point review of systems is conducted with the patient and is negative except for the pertinent positives mentioned above in the history of present illness. PAST MEDICAL HISTORY The patient denies. PAST SURGICAL HISTORY None. ALLERGIES NO KNOWN DRUG ALLERGIES. MEDICATIONS None. SOCIAL HISTORY The patient denies tobacco or illicit drug use. He rarely uses alcohol. FAMILY HISTORY Noncontributory PHYSICAL EXAMINATION VITAL SIGNS: Temperature 101.8, pulse of 116, respiratory rate 16, blood pressure 144/83. O2 saturation 99% on room air. GENERAL: The patient is an obese -[place] male in acute distress. He is diaphoretic and tachypneic. HEAD: Normocephalic, atraumatic. Pupils round and reactive to light. Sclerae is anicteric. Mucous membranes are dry. Airway is patent. Oral cavity, intact dentition. Neck: Supple. No JVD. Trachea is midline. Breath sounds present bilaterally. Breathing pattern is regular rhythm. Abdomen: Obese. No surgical scars. Normal bowel sounds. Area of necrotic skin with purulent drainage was stigma of necrosis. On the left abdominal wall, there is some cellulitic type changes of the skin. There is no crepitus of the tissues. Extremities: Intact. Peripheral pulses intact, warm, perfused. Back: No CVA tenderness. Neurologic: The patient is awake, alert, orient x3. Cranial II-XII grossly intact. LABORATORY VALUES: White blood cell count 23, hemoglobin 13, sodium is 119, glucose is 396. Urinalysis shows glucosuria of 1000. ASSESSMENT/PLAN: The patient is a 22-year-old -[place] male with a large area of cellulitis of abdominal wall and necrotizing infection. The patient does not have clinical syndrome of necrotic wound and sepsis, and would benefit from early debridement. The patient should be admitted to the Intensive Care Unit to optimize prior to surgery. Dr. Marie was consulted for admission and at this point and time states the patient is stable for surgery at this time and recommends proceeding to the operating room emergently. I discussed these recommendations with the patient and offered the patient early intervention with juan pablo schneider and he is in agreement. Discussed the risks, benefits and alternatives as well. Will plan incision and drainage, and debridement of the patient's wound and possible Vac placement versus dressing placement. MD АНДРЕЙ Spencer/SANNA /12:36 AM /4:26 AM
[2017-10-07 07:04] LABS: ALKALINE PHOSPHATASE 110 U/L (45-117); ALT (GPT) 15 U/L (12-78); ANION GAP 15 MEQ/L (5-15); AST (GOT) 19 U/L (15-37); BICARBONATE 17.3 MEQ/L (21.0-32.0); BLOOD UREA NITROGEN 12 MG/DL (7-18); CHLORIDE 99 MEQ/L (98-107); GLOMERULAR FILTRATION RATE 146 ML/MIN (>89); MAGNESIUM 1.6 MG/DL (1.5-2.5); POTASSIUM 3.6 MEQ/L (3.5-5.1); SODIUM (NA) 131 MEQ/L (136-145); TOTAL BILIRUBIN ADULT 0.8 MG/DL (0.2-1.0)
[2017-10-07] MEDS ORDERED: INSULIN ASPART SUPPLEMENTAL SCALE SQ SCH (08:00)
[2017-10-07] MEDS: DOCUSATE SODIUM 50 MG/SENNA 8.6 MG TAB PO SCH ×2 (09:20→19:59)
[2017-10-07] MEDS: FAMOTIDINE 20 MG/2 ML VIAL IV PUSH SCH ×2 (09:20→19:59)
[2017-10-07] MEDS: SODIUM CHLORIDE 0.9% FLUSH 10 ML FLUSH IV FLUSH SCH ×2 (09:20→19:53)
[2017-10-07] MEDS: ACETAMINOPHEN 325 MG TAB PO PRN ×2 (09:29→17:25)
[2017-10-07 11:06] LABS: HEMOGLOBIN A1a 1.8 %; HEMOGLOBIN A1b 1.3 %; HEMOGLOBIN Ao 73.7 %; HEMOGLOBIN F 1.8 %; HEMOGLOBIN LA1C 3.4 %; HEMOGLOBIN P3 5.5 %
[2017-10-07] MEDS ORDERED: GLYCOPYRROLATE 1 MG/5 ML SYRINGE IV PUSH ONE (12:00)
[2017-10-07] MEDS ORDERED: ROCURONIUM INJ 50 MG/5 ML SYRINGE IV PUSH ONE (12:00)
[2017-10-07] MEDS ORDERED: PROPOFOL 200 MG/20 ML AMP IV ONE (12:00)
[2017-10-07] MEDS ORDERED: LIDOCAINE HCL 1% PF 5 ML SYRINGE OTHER ONE (12:00)
[2017-10-07] MEDS ORDERED: MIDAZOLAM HCL 2 MG/2 ML VIAL IV ONE (12:00)
[2017-10-07] MEDS ORDERED: NEOSTIGMINE 3 MG/3 ML SYR IV ONE (12:00)
[2017-10-07] MEDS ORDERED: ESMOLOL HCL 100 MG/10 ML VIAL IV ONE (12:00)
[2017-10-07] MEDS ORDERED: SUCCINYLCHOLINE CHLORIDE 100 MG/5 ML SYRINGE IV PUSH ONE (12:00)
[2017-10-07] MEDS ORDERED: PHENYLEPH/NS 1000 MCG/10 ML SYR IV ONE (12:00)
[2017-10-07] MEDS: VANCOMYCIN 1,500 MG/NS 500 ML IV SCH ×2 (15:13)
--- NOTE | 2017-10-07 15:29 | HHI.CCPN ---
Subjective Remarks/Hospital Course 10/06: 22-year-old morbidly obese very pleasant gentleman presents with complaints of draining abscess on his scrotal region/inguinal region. He states that this began about one week ago and he tried home remedies with hot compresses. The lesion began draining a purulent foul smelling material. He does admit fevers, chills, nausea, vomiting. No SOB or CP. No headaches or vision changes. He has not been sexually active in over a year. He does shave the inguinal region, mons pubis and scrotum. He states that he has had these numerous times in the past. 10/07: Patient underwent debridement/I&D of necrotizing fasciitis/cellulitis area and left groin/left lower quadrant area by Dr. fabian Castro yesterday. Currently remains on insulin drip. He is awake and alert. Not in any acute distress. Denies any shortness of breath. Objective Vital Signs Date Time Temp Pulse Resp B/P (MAP) Pulse Ox O2 Delivery O2 Flow Rate FiO2 10/07/17 12:00 99.5 121 19 110/55 (73) 93 10/07/17 07:50 21 10/07/17 07:00 Room Air 10/07/17 03:30 3 Intake and Output 10/07/17 10/07/17 10/08/17 08:00 16:00 00:00 Intake Total 3910.2 ml 566 ml Output Total 1775 ml Balance 2135.2 ml 566 ml Result Diagram: 10/07/17 0556 10/07/17 0556 Other Results Laboratory Tests Test 10/06/17 22:10 Blood Gas Puncture Site DRAWN BY RN Blood Gas Patient Temperature 37.0 Venous Blood pH 7.38 (7.360-7.400) Venous Blood Partial Pressure CO2 29 mmHg (44-48) Venous Blood Partial Pressure O2 29 mmHg (35-40) Venous Blood HCO3 17 mmol/L (22-26) Venous Blood Oxygen Saturation 51 % (70-76) Venous Blood Oxygen Content 11.2 Vol % (9.0-17.0) Venous Blood Base Excess -7.2 mmol/L (-2-2) Oxygen Delivery Device ROOM AIR Blood Gas Inspired Oxygen 21 % Imaging Last 24 hours Impressions Chest X-Ray 10/06/172125 Signed Impressions: Service Date/Time: Friday, October 06, 2017 22:17 - CONCLUSION: The lungs are clear. Issac Romano MD Objective Remarks GENERAL: Morbidly obese young gentleman sitting up in bed in no acute distress SKIN: Left inguinal region surgical site with dressing in place. HEAD: Atraumatic. Normocephalic. EYES: Pupils equal and round. No scleral icterus. No injection or drainage. ENT: No nasal bleeding or discharge. Mucous membranes pink and moist. NECK: Trachea midline. No JVD. CARDIOVASCULAR: Tachycardia, with regular rhythm. 2+ but equal pulses in all 4 extremities. ENDOCRINE: Bedside glucose 421 RESPIRATORY: No accessory muscle use. Clear to auscultation. Breath sounds equal bilaterally GASTROINTESTINAL: Abdomen soft, moderately tender in the soft tissue area no crepitans is felt limited examination secondary to habitus., nondistended. Hepatic and splenic margins not palpable. MUSCULOSKELETAL: Extremities without clubbing, cyanosis, or edema. No obvious deformities. NEUROLOGICAL: Awake and alert. No obvious cranial nerve deficits. Motor grossly within normal limits. Five out of 5 muscle strength in the arms and legs. Normal speech. PSYCHIATRIC: Appropriate mood and affect; insight and judgment normal. A/P Assessment and Plan Necrotizing fasciitis - Vancomycin, Zosyn, clindamycin - Blood cultures - Status post debridement by surgery. Further recommendations per general surgery. Hyperglycemia - No history of diabetes - Most likely new onset - Insulin drip. Plan to transition to sliding scale insulin tomorrow - Hemoglobin A1c a.m. Hyponatremia - Sodium level 119 - Corrected sodium 126 - IV fluid replacement DVT GI prophylaxis - Teds SCDs - Subcutaneous heparin - Caleb Tse MD Oct 07, 2017 15:29
[2017-10-07] MEDS: MORPHINE SULFATE 4 MG/ML INJ IV PUSH PRN (20:54)
[2017-10-08] VITALS (14 sets, daily range): BP systolic 106–149; BP diastolic 62–96; PULSE 116–126; RESP 18–28; TEMP 97.6–100.1; O2SAT 93–96
[2017-10-08] MEDS: SODIUM CHLOR 0.9% 1000 ML INJ 1,000 ML IV SCH ×3 (00:45→15:10)
[2017-10-08] MEDS: CLINDAMYCIN 600 MG/NS PREMIX 50 ML IV SCH ×5 (01:05→23:17)
[2017-10-08] MEDS: PIPERACIL-TAZO 4.5 GM PREMIX 100 ML IV SCH ×5 (01:05→23:16)
[2017-10-08] MEDS: VANCOMYCIN 1,500 MG/NS 500 ML IV SCH ×4 (03:31→15:08)
[2017-10-08] MEDS: CHLORHEXIDINE GLUCONATE 2 % 1 PACK (2 CLOTHS) TOP SCH (04:00)
[2017-10-08] MEDS: MORPHINE SULFATE 4 MG/ML INJ IV PUSH PRN ×2 (04:46→16:12)
[2017-10-08] MEDS: HEPARIN SODIUM - SQ 10,000 UNITS/ML VIAL SQ SCH ×3 (06:05→20:55)
[2017-10-08] MEDS: FAMOTIDINE 20 MG/2 ML VIAL IV PUSH SCH ×2 (09:56→20:56)
[2017-10-08] MEDS: DOCUSATE SODIUM 50 MG/SENNA 8.6 MG TAB PO SCH ×2 (09:56→20:56)
[2017-10-08] MEDS: SODIUM CHLORIDE 0.9% FLUSH 10 ML FLUSH IV FLUSH SCH ×2 (09:57→20:56)
--- NOTE | 2017-10-08 11:54 | HHI.CCPN ---
Subjective Remarks/Hospital Course 10/06: 22-year-old morbidly obese very pleasant gentleman presents with complaints of draining abscess on his scrotal region/inguinal region. He states that this began about one week ago and he tried home remedies with hot compresses. The lesion began draining a purulent foul smelling material. He does admit fevers, chills, nausea, vomiting. No SOB or CP. No headaches or vision changes. He has not been sexually active in over a year. He does shave the inguinal region, mons pubis and scrotum. He states that he has had these numerous times in the past. 10/07: Patient underwent debridement/I&D of necrotizing fasciitis/cellulitis area and left groin/left lower quadrant area by Dr. fabian Castro yesterday. Currently remains on insulin drip. He is awake and alert. Not in any acute distress. Denies any shortness of breath. Subjective 10/08: Currently resting in bed in no acute distress. Pain is controlled. On no vasopressor therapy. Afebrile. Tolerating diet. Objective Vital Signs Date Time Temp Pulse Resp B/P (MAP) Pulse Ox O2 Delivery O2 Flow Rate FiO2 10/08/17 10:00 120 10/08/17 08:30 96 Nasal Cannula 2.00 10/08/17 08:00 98.2 25 142/62 (88) 10/07/17 20:00 21 Intake and Output 10/08/17 10/08/17 10/09/17 08:00 16:00 00:00 Intake Total 1882 ml Output Total 1900 ml Balance -18 ml Result Diagram: 10/07/17 0556 10/07/17 0556 Other Results Microbiology Date/Time Source Procedure Growth Status 10/06/17 21:45 Blood Peripheral Aerobic Blood Culture - Preliminary NO GROWTH IN 2 DAYS Resulted 10/06/17 21:45 Blood Peripheral Anaerobic Blood Culture - Preliminary NO GROWTH IN 2 DAYS Resulted 10/07/17 02:00 Tissue Abdomen Gram Stain - Final Resulted 10/07/17 02:00 Tissue Abdomen Wound Culture - Preliminary Resulted Imaging Last Impressions Chest X-Ray 10/07/17 0000 Signed Impressions: Service Date/Time: Saturday, October 07, 2017 05:05 - CONCLUSION: No acute disease. There is no evidence of pneumonia. Yang Castillo MD Abdomen/Pelvis CT 10/06/172125 Signed Impressions: Service Date/Time: Friday, October 06, 2017 22:23 - CONCLUSION: 1. Abnormal subcutaneous tissues in the left lower quadrant with a large area of discharged gas, surrounding induration of the fat and extension into the left inguinal region. 2. Absent right kidney. Issac Romano MD Objective Remarks GENERAL: 22-year-old AA male, sitting up in bed in no acute distress SKIN: Left inguinal region surgical site with dressing in place. Placed in an abdominal binder HEAD: Atraumatic. Normocephalic. EYES: Pupils equal and round around 3 Cristina's bilaterally and reactive. No scleral icterus. No injection or drainage. ENT: No nasal bleeding or discharge. Mucous membranes pink and moist. NECK: Trachea midline. No JVD. CARDIOVASCULAR: Tachycardia, RR. S1, S2 no S4. Without murmur 2+ but equal pulses in all 4 extremities. RESPIRATORY: Diminished but essentially clear to all sedation bilaterally without wheezes rales or rhonchi GASTROINTESTINAL: Abdomen soft, obese. Abdominal binder in place. No drainage MUSCULOSKELETAL: Extremities without significant peripheral edema. No obvious deformities. NEUROLOGICAL: Awake and alert. No obvious cranial nerve deficits. Motor grossly within normal limits. Five out of 5 muscle strength in the arms and legs. Normal speech. PSYCHIATRIC: Appropriate mood and affect; insight and judgment normal. A/P Assessment and Plan Neuro/Psych: Acetaminophen 650 mg every 6 hours. Fever Hydrocodone/acetaminophen 5325 one tablet every 4 hours. As needed Pain 1-5 Morphine sulfate 2 mg IV every 2 hours as needed pain 6-10 CV: Lactic acidosis Sinus tachycardia Currently on normal saline at 154 cc an hour. Will decrease to 75 cc an hour Currently afebrile. Last lactate was 1.6 yesterday. We'll recheck today Resp: Nasal cannula to maintain saturations greater than equal to 92% Incentive spirometry while awake GI: Patient is currently at 2000 kcal ADA diet Famotidine for GI prophylaxis Docusate sodium/senna 1 tablet twice a day for bowel regimen : Mancia catheter if indicated Endo: Diabetes mellitus with hemoglobin A1c greater than 12 Transition from insulin drip currently at 1.5 units an hour to sliding-scale insulin/high with Novulin R before meals/at bedtime and 0300 to maintain tight glycemic control Start on long-acting insulin twice a day see orders Renal: Follow BUN/creatinine Adequate urine output Heme: Leukocytosis Microcytic anemia Monitor CBC daily. Follow trends ID: Currently on day #3 piperacillin/tazobactam, clindamycin and vancomycin 3 continue Blood cultures no growth. Wound cultures 10/07 no growth FEN: Hyponatremia Recheck BMP today Replace electrolytes as clinically indicated MSK: Elevated BMI greater than 47 Postop day #1 Excisional debridement of necrotizing and necrotic tissue, left abdominal wall, skin, subcutaneous tissue, fascia and muscle from the left inguinal crease, upward to the left of midline, [address] Verduzco Currently with abdominal binder. Postoperative care per general surgery Access - Utilize peripheral IV. Central line if indicated Prophylaxis - GI - famotidine - DVT - SCD/heparin subcutaneous Level II follow-up Onel Cruz MD Oct 08, 2017 11:54
[2017-10-08] MEDS ORDERED: GLUCAGON 1 MG/ML VIAL IM PRN (12:30)
[2017-10-08] MEDS ORDERED: GLUCAGON 1 MG/ML VIAL OTHER PRN (12:30)
[2017-10-08] MEDS ORDERED: DEXTROSE 50% IN WATER 50 ML VIAL(D50) IV PUSH PRN (12:30)
[2017-10-08 13:05] LABS: AUTOMATED NEUTROPHIL # 12.8 TH/MM3 (1.8-7.7); BASOPHIL # 0.1 TH/MM3 (0-0.2); BASOPHIL % 0.4 % (0.0-2.0); EOSINOPHIL % 0.1 % (0.0-4.0); HEMATOCRIT 30.5 % (39.0-51.0); HEMO FLAGS DIFF FINAL; LYMPH % 7.8 % (9.0-44.0); LYMPHOCYTE # 1.2 TH/MM3 (1.0-4.8); MEAN CELL VOLUME 77.5 FL (80.0-100.0); MEAN CORPUSCULAR HEMOGLOBIN 25.5 PG (27.0-34.0); MEAN CORPUSCULAR HGB CONC 32.9 % (32.0-36.0); MONO % 8.9 % (0.0-8.0); NEUT % 82.8 % (16.0-70.0); PLATELET COUNT 234 TH/MM3 (150-450); RED BLOOD COUNT 3.94 MIL/MM3 (4.50-5.90); RED CELL DISTRIBUTION WIDTH 13.8 % (11.6-17.2); WHITE BLOOD COUNT 15.5 TH/MM3 (4.0-11.0)
[2017-10-08] MEDS ORDERED: CHLORHEXIDINE GLUCONATE 2 % 1 PACK (2 CLOTHS)(extra cloths) TOPICAL PRN (14:30)
[2017-10-08 14:35] LABS: BICARBONATE 21.9 MEQ/L (21.0-32.0); MAGNESIUM 1.8 MG/DL (1.5-2.5)
[2017-10-08 14:40] LABS: POTASSIUM 2.9 MEQ/L (3.5-5.1)
[2017-10-08] MEDS ORDERED: PHARMACY ORDERED LAB ONE ×2 (14:45→17:15)
[2017-10-08] MEDS: POTASSIUM CHLOR 20 MEQ PREMIX 100 ML IV PRN ×4 (15:08→20:55)
--- NOTE | 2017-10-08 16:40 | HHI.PR ---
Subjective Subjective Notes Resting in bed No issues Some pain with dressing changes Objective Vitals/I&O Vital Signs Date Time Temp Pulse Resp B/P (MAP) Pulse Ox O2 Delivery O2 Flow Rate FiO2 10/08/17 14:00 122 10/08/17 12:00 99.4 28 124/70 (88) 93 10/08/17 08:30 Nasal Cannula 2.00 10/07/17 20:00 21 Labs Laboratory Tests Test 10/08/17 11:39 10/08/17 12:55 10/08/17 15:30 Blood Urea Nitrogen 8 Creatinine 0.75 Random Glucose 150 151 Calcium Level 8.0 Phosphorus Level 2.5 Magnesium Level 1.8 Sodium Level 135 Potassium Level 2.9 Chloride Level 104 Carbon Dioxide Level 21.9 Anion Gap 9 Estimat Glomerular Filtration Rate 159 White Blood Count 15.5 Red Blood Count 3.94 Hemoglobin 10.1 Hematocrit 30.5 Mean Corpuscular Volume 77.5 Mean Corpuscular Hemoglobin 25.5 Mean Corpuscular Hemoglobin Concent 32.9 Red Cell Distribution Width 13.8 Platelet Count 234 Mean Platelet Volume 9.2 Neutrophils (%) (Auto) 82.8 Lymphocytes (%) (Auto) 7.8 Monocytes (%) (Auto) 8.9 Eosinophils (%) (Auto) 0.1 Basophils (%) (Auto) 0.4 Neutrophils # (Auto) 12.8 Lymphocytes # (Auto) 1.2 Monocytes # (Auto) 1.4 Eosinophils # (Auto) 0.0 Basophils # (Auto) 0.1 CBC Comment DIFF FINAL Differential Comment Lactic Acid Level 1.0 Vancomycin Level Trough 11.1 Date/Time Source Procedure Growth Status 10/06/17 21:45 Blood Peripheral Aerobic Blood Culture - Preliminary NO GROWTH IN 2 DAYS Resulted 10/06/17 21:45 Blood Peripheral Anaerobic Blood Culture - Preliminary NO GROWTH IN 2 DAYS Resulted 10/07/17 02:00 Tissue Abdomen Gram Stain - Final Resulted 10/07/17 02:00 Tissue Abdomen Wound Culture - Preliminary Resulted Cardiovascular: Regular Lungs: Clear Abdomen: Other (see below) Extremities: No edema Narrative Exam Large LEFT lower quadrant s/p I&D--- packing removed; minimal thin drainage in lateral portion of wound A/P Assessment and Plan 22 year old male s/p I&D of LEFT lower quadrant abdomen abscess -Diabetic diet -Currently off insulin gtt -Continue dressing TID Ryanne Lepe Oct 08, 2017 16:40
[2017-10-08] MEDS ORDERED: INSULIN NovoLIN REGULAR SUPPLEMENTAL SCALE SQ SCH (17:00)
[2017-10-08] MEDS: INSULIN NovoLIN REGULAR SUPPLEMENTAL SCALE SQ SCH ×2 (17:00→23:17)
[2017-10-08] MEDS: MUPIROCIN 2% OINT 1 APPLIC/GM SYR EACH NARE SCH (20:55)
[2017-10-08] MEDS: MUPIROCIN 2% OINT 1 APPLIC/GM SYR NASAL SCH (21:00)
[2017-10-08] MEDS: VANCOMYCIN INJ 1,250 MG in SODIUM CHLOR 0.9% 250 ML INJ 250 ML IV SCH (23:16)
[2017-10-09] VITALS (14 sets, daily range): BP systolic 115–168; BP diastolic 65–99; PULSE 116–126; RESP 20–28; TEMP 97.6–99.4; O2SAT 92–98
[2017-10-09] MEDS: MORPHINE SULFATE 4 MG/ML INJ IV PUSH PRN ×2 (02:00→10:11)
[2017-10-09] MEDS: INSULIN NovoLIN REGULAR SUPPLEMENTAL SCALE SQ SCH ×5 (03:00→20:34)
[2017-10-09] MEDS: CHLORHEXIDINE GLUCONATE 2 % 1 PACK (2 CLOTHS) TOP SCH (03:14)
[2017-10-09] MEDS ORDERED: CHLORHEXIDINE GLUCONATE 2 % 1 PACK (2 CLOTHS)(taper/protocol) TOPICAL SCH (04:00)
[2017-10-09] MEDS: SODIUM CHLOR 0.9% 1000 ML INJ 1,000 ML IV SCH ×2 (04:15→17:34)
[2017-10-09] MEDS: CLINDAMYCIN 600 MG/NS PREMIX 50 ML IV SCH ×3 (05:01→18:32)
[2017-10-09] MEDS: PIPERACIL-TAZO 4.5 GM PREMIX 100 ML IV SCH ×3 (05:01→18:32)
[2017-10-09] MEDS: HEPARIN SODIUM - SQ 10,000 UNITS/ML VIAL SQ SCH ×3 (05:01→20:33)
[2017-10-09 05:12] LABS: AUTOMATED NEUTROPHIL # 11.5 TH/MM3 (1.8-7.7); BASOPHIL # 0.1 TH/MM3 (0-0.2); BASOPHIL % 0.4 % (0.0-2.0); EOSINOPHIL # 0.1 TH/MM3 (0-0.4); EOSINOPHIL % 0.4 % (0.0-4.0); HEMATOCRIT 28.6 % (39.0-51.0); HEMO FLAGS DIFF FINAL; LYMPH % 10.5 % (9.0-44.0); LYMPHOCYTE # 1.6 TH/MM3 (1.0-4.8); MEAN CELL VOLUME 77.4 FL (80.0-100.0); MEAN CORPUSCULAR HEMOGLOBIN 25.7 PG (27.0-34.0); MEAN CORPUSCULAR HGB CONC 33.3 % (32.0-36.0); MONO % 10.7 % (0.0-8.0); PLATELET COUNT 253 TH/MM3 (150-450); WHITE BLOOD COUNT 14.8 TH/MM3 (4.0-11.0)
[2017-10-09 05:39] LABS: APTT (PATIENT) 31.2 SEC (24.3-30.1); PROTHROMBIN TIME - PATIENT 10.7 SEC (9.8-11.6)
[2017-10-09 05:42] LABS: ALKALINE PHOSPHATASE 107 U/L (45-117); ALT (GPT) 11 U/L (12-78); ANION GAP 11 MEQ/L (5-15); AST (GOT) 20 U/L (15-37); BICARBONATE 21.5 MEQ/L (21.0-32.0); BLOOD UREA NITROGEN 7 MG/DL (7-18); CHLORIDE 100 MEQ/L (98-107); GLOMERULAR FILTRATION RATE 157 ML/MIN (>89); MAGNESIUM 1.5 MG/DL (1.5-2.5); POTASSIUM 2.9 MEQ/L (3.5-5.1); SODIUM (NA) 132 MEQ/L (136-145); TOTAL BILIRUBIN ADULT 0.6 MG/DL (0.2-1.0)
[2017-10-09 06:10] LABS: FIBRINOGEN GREATER THAN 860 mg/dL (227-377)
[2017-10-09] MEDS: POTASSIUM CHLOR 20 MEQ PREMIX 100 ML IV PRN ×2 (06:44→06:45)
[2017-10-09] MEDS: VANCOMYCIN INJ 1,250 MG in SODIUM CHLOR 0.9% 250 ML INJ 250 ML IV SCH ×3 (07:56→23:17)
[2017-10-09] MEDS: DOCUSATE SODIUM 50 MG/SENNA 8.6 MG TAB PO SCH ×2 (09:00→20:35)
[2017-10-09] MEDS: SODIUM CHLORIDE 0.9% FLUSH 10 ML FLUSH IV FLUSH SCH ×2 (09:00→20:34)
[2017-10-09] MEDS: MUPIROCIN 2% OINT 1 APPLIC/GM SYR NASAL SCH (09:00)
[2017-10-09] MEDS: MUPIROCIN 2% OINT 1 APPLIC/GM SYR EACH NARE SCH ×2 (10:00→20:34)
[2017-10-09] MEDS: FAMOTIDINE 20 MG/2 ML VIAL IV PUSH SCH ×2 (10:00→20:32)
--- NOTE | 2017-10-09 11:04 | HHI.PR ---
Subjective Subjective Notes Resting in bed Anxious about Wound Vac Dr. Cruz also as bedside Objective Vitals/I&O Vital Signs Date Time Temp Pulse Resp B/P (MAP) Pulse Ox O2 Delivery O2 Flow Rate FiO2 10/09/17 06:00 119 10/09/17 04:00 99.2 25 138/65 (89) 96 10/08/17 21:32 Nasal Cannula 3.00 10/07/17 20:00 21 Labs Laboratory Tests Test 10/08/17 11:39 10/08/17 12:55 10/08/17 15:30 10/09/17 04:46 Blood Urea Nitrogen 8 7 Creatinine 0.75 0.76 Random Glucose 150 151 186 Calcium Level 8.0 7.9 Phosphorus Level 2.5 2.6 Magnesium Level 1.8 1.5 Sodium Level 135 132 Potassium Level 2.9 2.9 Chloride Level 104 100 Carbon Dioxide Level 21.9 21.5 Anion Gap 9 11 Estimat Glomerular Filtration Rate 159 157 White Blood Count 15.5 14.8 Red Blood Count 3.94 3.70 Hemoglobin 10.1 9.5 Hematocrit 30.5 28.6 Mean Corpuscular Volume 77.5 77.4 Mean Corpuscular Hemoglobin 25.5 25.7 Mean Corpuscular Hemoglobin Concent 32.9 33.3 Red Cell Distribution Width 13.8 14.0 Platelet Count 234 253 Mean Platelet Volume 9.2 9.1 Neutrophils (%) (Auto) 82.8 78.0 Lymphocytes (%) (Auto) 7.8 10.5 Monocytes (%) (Auto) 8.9 10.7 Eosinophils (%) (Auto) 0.1 0.4 Basophils (%) (Auto) 0.4 0.4 Neutrophils # (Auto) 12.8 11.5 Lymphocytes # (Auto) 1.2 1.6 Monocytes # (Auto) 1.4 1.6 Eosinophils # (Auto) 0.0 0.1 Basophils # (Auto) 0.1 0.1 CBC Comment DIFF FINAL DIFF FINAL Differential Comment Lactic Acid Level 1.0 0.8 Vancomycin Level Trough 11.1 Prothrombin Time 10.7 Prothromb Time International Ratio 1.0 Activated Partial Thromboplast Time 31.2 Fibrinogen GREATER THAN 860 Total Protein 7.2 Albumin 1.3 Alkaline Phosphatase 107 Aspartate Amino Transf (AST/SGOT) 20 Alanine Aminotransferase (ALT/SGPT) 11 Total Bilirubin 0.6 Lipase 70 Date/Time Source Procedure Growth Status 10/06/17 21:45 Blood Peripheral Aerobic Blood Culture - Preliminary NO GROWTH IN 2 DAYS Resulted 10/06/17 21:45 Blood Peripheral Anaerobic Blood Culture - Preliminary NO GROWTH IN 2 DAYS Resulted 10/07/17 02:00 Tissue Abdomen Gram Stain - Final Resulted 10/07/17 02:00 Tissue Abdomen Wound Culture - Preliminary Resulted Cardiovascular: Regular Lungs: Clear Abdomen: Non-distended, Other (see below) Narrative Exam Large LEFT lower quadrant s/p I&D--- packing removed; clean with minimal drainage; Wound Vac applied A/P Assessment and Plan 22 year old male s/p I&D of LEFT lower quadrant abdomen abscess -Diabetic diet -Currently off insulin gtt -Apply Wound Vac today; plan for TThSa changes Ryanne Lepe Oct 09, 2017 11:04
[2017-10-09] MEDS: MAGNESIUM SULFATE 1 GM PREMIX 100 ML IV SCH ×2 (11:37→12:52)
--- NOTE | 2017-10-09 11:51 | PD.WCN.NOT ---
Wound Consult Description: Received VAC management consult from TIFFANY Lepe for Abdomen Communicated with: TIFFANY Lepe, Doctor Anthony, and Mi GOODMAN 3 jerome Recommendation: Please change VAC dressing on Sunday10/12/2017 and then on Sunday, Sunday and Sunday. Neg Pressure Wound Therapy Wound Location Wound Location: L lower abdomen Wound Description Length: ~9cm Width: 25cm Depth: ~7cm Wound bed appearance: Wound bed presents with 40% clean red non granulation tissue, ~50% adipose tissue, and ~10% slough. Wound is draining minimal amount of sero-sanguinous drainage with mild odor. Periwound appearance: Other (Resolving blister between 10 and 12 o'clock, slight induration between 7 and 9 o'clock) Settings Suction: 125 mmHg, Continuous Intensity: Low Other Information: Bridged Foam type: Black Number of pieces: 3 Additonal Information Cleansed wound with wound cleanser and applied skin prep to periwound and to L anterior thigh. Stoma paste was then applied to lower abdominal crease and groin crease to seal dressing.VAc drape was bridged from wound margin at 6 o' clock to L anterior thigh.Applied one large piece of granufoam into wound bed. Applied one small piece of granufoam at 3 o'clock in wound bed and one strip of granufoam between 10 and 12 o'clock to fill in wound bed completely. A total of three pieces of granufoam were placed into wound bed. Covered granufoam with VAC drape. Cut hole in VAC drape to expose granufoam and bridged one strip of granufoam from wound bed to L anterior thigh over VAC drape. Applied Sensi trac pad with attached mushroom cap of granufoam to bridged foam on L anterior thigh. Covered all exposed VAC foam with drape to seal.Wound VAC suctioning at 125 mm/hg low continuous suction with low leak rate. Patient tolerated fairly with complaints of pain with granufoam placement and cleaning. Patient was premedicated for pain prior to VAC dressing application. Reina Kendrick [facility] Oct 09, 2017 11:51
[2017-10-09] MEDS: MAGNESIUM OXIDE 400 MG TAB PO SCH ×2 (12:52→20:34)
--- NOTE | 2017-10-09 13:34 | HHI.CCPN ---
Subjective Remarks/Hospital Course 10/06: 22-year-old morbidly obese very pleasant gentleman presents with complaints of draining abscess on his scrotal region/inguinal region. He states that this began about one week ago and he tried home remedies with hot compresses. The lesion began draining a purulent foul smelling material. He does admit fevers, chills, nausea, vomiting. No SOB or CP. No headaches or vision changes. He has not been sexually active in over a year. He does shave the inguinal region, mons pubis and scrotum. He states that he has had these numerous times in the past. 10/07: Patient underwent debridement/I&D of necrotizing fasciitis/cellulitis area and left groin/left lower quadrant area by Dr. fabian Castro yesterday. Currently remains on insulin drip. He is awake and alert. Not in any acute distress. Denies any shortness of breath. 10/08: Currently resting in bed in no acute distress. Pain is controlled. On no vasopressor therapy. Afebrile. Tolerating diet. Subjective 10/09: Patient was having a wound VAC placed on today. Remains in sinus tachycardia. Otherwise no acute issues. Tolerating diet. Objective Vital Signs Date Time Temp Pulse Resp B/P (MAP) Pulse Ox O2 Delivery O2 Flow Rate FiO2 10/09/17 11:25 20 10/09/17 06:00 119 10/09/17 04:00 99.2 138/65 (89) 96 10/08/17 21:32 Nasal Cannula 3.00 10/07/17 20:00 21 Intake and Output 10/09/17 10/09/17 10/10/17 08:00 16:00 00:00 Intake Total 2495 ml Output Total 2500 ml Balance -5 ml Result Diagram: 10/09/17 0446 10/09/17 0446 Other Results Microbiology Date/Time Source Procedure Growth Status 10/06/17 21:45 Blood Peripheral Aerobic Blood Culture - Preliminary NO GROWTH IN 3 DAYS Resulted 10/06/17 21:45 Blood Peripheral Anaerobic Blood Culture - Preliminary NO GROWTH IN 3 DAYS Resulted 10/07/17 02:00 Tissue Abdomen Gram Stain - Final Resulted 10/07/17 02:00 Tissue Abdomen Wound Culture - Preliminary Resulted Imaging Last Impressions Chest X-Ray 10/07/17 0000 Signed Impressions: Service Date/Time: Saturday, October 07, 2017 05:05 - CONCLUSION: No acute disease. There is no evidence of pneumonia. Yang Castillo MD Abdomen/Pelvis CT 10/06/172125 Signed Impressions: Service Date/Time: Friday, October 06, 2017 22:23 - CONCLUSION: 1. Abnormal subcutaneous tissues in the left lower quadrant with a large area of discharged gas, surrounding induration of the fat and extension into the left inguinal region. 2. Absent right kidney. Issac Romano MD Objective Remarks GENERAL: 22-year-old AA male, sitting up in bed in no acute distress SKIN: Left inguinal region surgical site with dressing in place. Placed in an abdominal binder HEAD: Atraumatic. Normocephalic. EYES: Pupils equal and round around 3 Cristina's bilaterally and reactive. No scleral icterus. No injection or drainage. ENT: No nasal bleeding or discharge. Mucous membranes pink and moist. NECK: Trachea midline. No JVD. CARDIOVASCULAR: Tachycardia, RR. S1, S2 no S4. Without murmur 2+ but equal pulses in all 4 extremities. RESPIRATORY: Diminished but essentially clear to all sedation bilaterally without wheezes rales or rhonchi GASTROINTESTINAL: Abdomen soft, obese. 15 x 25 cm debulking of necrotic tissue is clean dry intact with pink tissue. Wound VAC currently been placed MUSCULOSKELETAL: Extremities without significant peripheral edema. No obvious deformities. NEUROLOGICAL: Awake and alert. No obvious cranial nerve deficits. Motor grossly within normal limits. Five out of 5 muscle strength in the arms and legs. Normal speech. PSYCHIATRIC: Appropriate mood and affect; insight and judgment normal. A/P Assessment and Plan Neuro/Psych: Acetaminophen 650 mg every 6 hours as needed Fever Hydrocodone/acetaminophen 5/325 one tablet every 4 hours. As needed Pain 1-5 Morphine sulfate 2 mg IV every 2 hours as needed pain 6-10 CV: Lactic acidosis Sinus tachycardia Currently on normal saline at 75 cc an hour Currently afebrile. Last lactate was 0.8 today Resp: Nasal cannula to maintain saturations greater than equal to 92% Incentive spirometry while awake GI: Patient is currently at 2000 kcal ADA diet Famotidine for GI prophylaxis Docusate sodium/senna 1 tablet twice a day for bowel regimen : Mancia catheter if indicated Endo: Diabetes mellitus with hemoglobin A1c greater than 12 Currently sliding-scale insulin/high with Novulin R before meals/at bedtime and 0300 to maintain tight glycemic control Start on insulin detemir 8 units at night starting tonight Renal: Follow BUN/creatinine Adequate urine output Heme: Leukocytosis Microcytic anemia Monitor CBC daily. Follow trends ID: Currently on day #4 piperacillin/tazobactam, clindamycin and vancomycin Blood cultures 2 10/06 no growth. Wound cultures 10/07 no growth FEN: Hyponatremia Hypopotassemia Recheck BMP today Replace electrolytes as clinically indicated MSK: Elevated BMI greater than 47 Postop day #2 Excisional debridement of necrotizing and necrotic tissue, left abdominal wall, skin, subcutaneous tissue, fascia and muscle from the left inguinal crease, upward to the left of midline, [address] Verduzco Wound VAC placed today. Postoperative care per general surgery Access - Utilize peripheral IV. Central line if indicated Prophylaxis - GI - famotidine - DVT - SCD/heparin subcutaneous Level II follow-up Onel Cruz MD Oct 09, 2017 13:34
[2017-10-09] MEDS: POTASSIUM CHLORIDE 20 MEQ CONTROLLED RELEASE TAB PO SCH ×2 (15:10→20:34)
[2017-10-09] MEDS: RESP: ALBUTEROL 2.5 MG/3 ML NEB (PRN) NEB (19:26)
[2017-10-09] MEDS ORDERED: PHARMACY ORDERED LAB ONE (22:45)
[2017-10-09] MEDS: LABETALOL HCL 100 MG/20 ML VIAL IV PUSH PRN (23:17)
[2017-10-10] VITALS (14 sets, daily range): BP systolic 122–159; BP diastolic 66–87; PULSE 102–117; RESP 18–26; TEMP 98–100; O2SAT 93–99
[2017-10-10 00:09] LABS: BICARBONATE 23.3 MEQ/L (21.0-32.0); MAGNESIUM 1.6 MG/DL (1.5-2.5); VANCOMYCIN TROUGH 12.6 MCG/ML (5.0-10.0)
[2017-10-10 00:14] LABS: POTASSIUM 2.8 MEQ/L (3.5-5.1)
[2017-10-10] MEDS: CLINDAMYCIN 600 MG/NS PREMIX 50 ML IV SCH ×4 (00:42→18:00)
[2017-10-10] MEDS: PIPERACIL-TAZO 4.5 GM PREMIX 100 ML IV SCH ×3 (00:42→12:00)
[2017-10-10] MEDS: CHLORHEXIDINE GLUCONATE 2 % 1 PACK (2 CLOTHS) TOP SCH (04:00)
[2017-10-10] MEDS: INSULIN NovoLIN REGULAR SUPPLEMENTAL SCALE SQ SCH ×5 (04:23→20:34)
[2017-10-10] MEDS: ACETAMINOPHEN/HYDROcodone 325 MG/5 MG TAB PO PRN ×2 (04:39→18:00)
[2017-10-10] MEDS: HEPARIN SODIUM - SQ 10,000 UNITS/ML VIAL SQ SCH ×3 (04:41→22:00)
[2017-10-10] MEDS: LABETALOL HCL 100 MG/20 ML VIAL IV PUSH PRN (05:18)
[2017-10-10 06:00] LABS: AUTOMATED NEUTROPHIL # 9.7 TH/MM3 (1.8-7.7); BASOPHIL # 0.1 TH/MM3 (0-0.2); BASOPHIL % 0.6 % (0.0-2.0); EOSINOPHIL # 0.2 TH/MM3 (0-0.4); EOSINOPHIL % 1.2 % (0.0-4.0); HEMATOCRIT 28.2 % (39.0-51.0); LYMPH % 8.1 % (9.0-44.0); MEAN CELL VOLUME 77.1 FL (80.0-100.0); MEAN CORPUSCULAR HEMOGLOBIN 25.5 PG (27.0-34.0); MEAN CORPUSCULAR HGB CONC 33.1 % (32.0-36.0); MONO % 10.9 % (0.0-8.0); NEUT % 79.2 % (16.0-70.0); PLATELET COUNT 330 TH/MM3 (150-450); RED BLOOD COUNT 3.66 MIL/MM3 (4.50-5.90); RED CELL DISTRIBUTION WIDTH 14.2 % (11.6-17.2); WHITE BLOOD COUNT 12.2 TH/MM3 (4.0-11.0)
[2017-10-10 06:02] LABS: HEMO FLAGS AUTO DIFF
[2017-10-10] MEDS: SODIUM CHLOR 0.9% 1000 ML INJ 1,000 ML IV SCH (06:54)
[2017-10-10] MEDS: VANCOMYCIN INJ 1,250 MG in SODIUM CHLOR 0.9% 250 ML INJ 250 ML IV SCH (07:00)
[2017-10-10 08:41] LABS: BANDS 3 % (0-6); BASOPHILS 1 % (0-2); EOSINOPHILS 1 % (0-4); MYELOCYTES 2 % (0-0); NEUTROPHIL # MANUAL DIFF 9.3 TH/MM3 (1.8-7.7); POLYS (SEG NEUTROPHILS) 71 % (16-70); WBC DIFF SAMPLE 100
[2017-10-10 08:42] LABS: PLATELET ESTIMATE SMEAR NORMAL (NORMAL); PLATELET MORPHOLOGY NORMAL (NORMAL); SCAN/DIFF FINAL DIFF MANUAL; TOXIC VACUOLATION PRESENT (NONE SEEN)
[2017-10-10] MEDS: SODIUM CHLORIDE 0.9% FLUSH 10 ML FLUSH IV FLUSH SCH ×2 (09:00→20:17)
[2017-10-10] MEDS: MAGNESIUM OXIDE 400 MG TAB PO SCH ×2 (09:00→20:16)
[2017-10-10] MEDS: FAMOTIDINE 20 MG/2 ML VIAL IV PUSH SCH (09:00)
[2017-10-10] MEDS: DOCUSATE SODIUM 50 MG/SENNA 8.6 MG TAB PO SCH ×2 (09:00→20:17)
[2017-10-10] MEDS: MUPIROCIN 2% OINT 1 APPLIC/GM SYR EACH NARE SCH ×2 (09:00→20:17)
[2017-10-10] MEDS: MAGNESIUM SULFATE 1 GM PREMIX 100 ML IV SCH ×3 (14:15→17:15)
[2017-10-10] MEDS: POTASSIUM CHLORIDE 10 MEQ CONTROLLED RELEASE TAB PO SCH ×2 (14:15→20:17)
--- NOTE | 2017-10-10 14:38 | HHI.CCPN ---
Subjective Remarks/Hospital Course 10/06: 22-year-old morbidly obese very pleasant gentleman presents with complaints of draining abscess on his scrotal region/inguinal region. He states that this began about one week ago and he tried home remedies with hot compresses. The lesion began draining a purulent foul smelling material. He does admit fevers, chills, nausea, vomiting. No SOB or CP. No headaches or vision changes. He has not been sexually active in over a year. He does shave the inguinal region, mons pubis and scrotum. He states that he has had these numerous times in the past. 10/07: Patient underwent debridement/I&D of necrotizing fasciitis/cellulitis area and left groin/left lower quadrant area by Dr. fabian Castro yesterday. Currently remains on insulin drip. He is awake and alert. Not in any acute distress. Denies any shortness of breath. 10/08: Currently resting in bed in no acute distress. Pain is controlled. On no vasopressor therapy. Afebrile. Tolerating diet. 10/09: Patient was having a wound VAC placed on today. Remains in sinus tachycardia. Otherwise no acute issues. Tolerating diet. Subjective 10/10: Remains sinus tachycardia but appears much improved today. Wound VAC day #2. No active issues. Tolerating diet. Objective Vital Signs Date Time Temp Pulse Resp B/P (MAP) Pulse Ox O2 Delivery O2 Flow Rate FiO2 10/10/17 12:00 104 10/10/17 12:00 99.1 18 147/87 (107) 96 10/10/17 07:33 Nasal Cannula 5.00 10/07/17 20:00 21 Intake and Output 10/10/17 10/10/17 10/11/17 08:00 16:00 00:00 Intake Total 2183 ml Output Total 2700 ml Balance -517 ml Result Diagram: 10/10/17 0532 10/09/17 2320 Other Results Microbiology Date/Time Source Procedure Growth Status 10/06/17 21:45 Blood Peripheral Aerobic Blood Culture - Preliminary NO GROWTH IN 4 DAYS Resulted 10/06/17 21:45 Blood Peripheral Anaerobic Blood Culture - Preliminary NO GROWTH IN 4 DAYS Resulted 10/07/17 02:00 Tissue Abdomen Gram Stain - Final Complete 10/07/17 02:00 Wound Culture - Final Anaerobic Gram Positive Cocci Complete Imaging Last Impressions Chest X-Ray 10/07/17 0000 Signed Impressions: Service Date/Time: Saturday, October 07, 2017 05:05 - CONCLUSION: No acute disease. There is no evidence of pneumonia. Yang Castillo MD Abdomen/Pelvis CT 10/06/172125 Signed Impressions: Service Date/Time: Friday, October 06, 2017 22:23 - CONCLUSION: 1. Abnormal subcutaneous tissues in the left lower quadrant with a large area of discharged gas, surrounding induration of the fat and extension into the left inguinal region. 2. Absent right kidney. Issac Romano MD Objective Remarks GENERAL: 22-year-old AA male, sitting up in bed in no acute distress SKIN: Left inguinal region surgical site with dressing in place. Placed in an abdominal binder HEAD: Atraumatic. Normocephalic. EYES: Pupils equal and round around 3 Cristina's bilaterally and reactive. No scleral icterus. No injection or drainage. ENT: No nasal bleeding or discharge. Mucous membranes pink and moist. NECK: Trachea midline. No JVD. CARDIOVASCULAR: Tachycardia, RR. S1, S2 no S4. Without murmur 2+ but equal pulses in all 4 extremities. RESPIRATORY: Diminished but essentially clear to all sedation bilaterally without wheezes rales or rhonchi GASTROINTESTINAL: Abdomen soft, obese. 15 x 25 cm debulking of necrotic tissue is clean dry intact with pink tissue. Wound VAC currently been placed in left lower quadrant MUSCULOSKELETAL: Extremities without significant peripheral edema. No obvious deformities. NEUROLOGICAL: Awake and alert. No obvious cranial nerve deficits. Motor grossly within normal limits. Five out of 5 muscle strength in the arms and legs. Normal speech. PSYCHIATRIC: Appropriate mood and affect; insight and judgment normal. A/P Assessment and Plan Neuro/Psych: Acetaminophen 650 mg every 6 hours as needed Fever Hydrocodone/acetaminophen 5/325 one tablet every 4 hours. As needed Pain 1-5 Morphine sulfate 2 mg IV every 2 hours as needed pain 6-10 CV: Lactic acidosis Sinus tachycardia Currently on normal saline at 75 cc an hour. We'll discontinue today Currently afebrile. Last lactate was 0.8 today Resp: Nasal cannula to maintain saturations greater than equal to 92%. Currently in room air Incentive spirometry while awake GI: Patient is currently at 2000 kcal ADA diet Famotidine for GI prophylaxis Docusate sodium/senna 1 tablet twice a day for bowel regimen : Mancia catheter if indicated Endo: Diabetes mellitus with hemoglobin A1c greater than 12 Currently sliding-scale insulin/high with Novulin R before meals/at bedtime and 0300 to maintain tight glycemic control. Currently 45 units sliding scale past 24 hours Start on insulin detemir 20 units at night starting tonight Renal: Follow BUN/creatinine Adequate urine output Heme: Leukocytosis Microcytic anemia Monitor CBC daily. Follow trends ID: Currently on day #5 piperacillin/tazobactam, clindamycin and vancomycin Blood cultures 2 10/06 no growth. Wound cultures 10/07 anaerobic gram-positive cocci Consult infectious disease for long-term antibiotic management FEN: Hypopotassemia Hypo-magnesium 60 mEq KCl twice a day 1 today. 4 g mag sulfate IV 1 today. Recheck in a.m. Replace electrolytes as clinically indicated MSK: Elevated BMI greater than 47 Postop day #3 Excisional debridement of necrotizing and necrotic tissue, left abdominal wall, skin, subcutaneous tissue, fascia and muscle from the left inguinal crease, upward to the left of midline, [address] Verduzco Wound VAC placed 10/09. Postoperative care per general surgery Access - Utilize peripheral IV. Central line if indicated Prophylaxis - GI - famotidine - DVT - SCD/heparin subcutaneous Level II follow-up. Patient is stable from and critical care standpoint. Okay to transfer to general medical floor. Okay with general surgery. Hospitalist to assume care in a.m. 10/11 Onel Cruz MD Oct 10, 2017 14:38
[2017-10-10] MEDS ORDERED: POTASSIUM PHOSPHATE INJ 30 MMOL in SODIUM CHLOR 0.9% 250 ML INJ 250 ML IV ONE (15:00)
--- NOTE | 2017-10-10 16:21 | HHI.PR ---
Subjective Subjective Notes Resting in bed No issues today Awaiting transfer out of [facility] Objective Vitals/I&O Vital Signs Date Time Temp Pulse Resp B/P (MAP) Pulse Ox O2 Delivery O2 Flow Rate FiO2 10/10/17 12:00 104 10/10/17 12:00 99.1 18 147/87 (107) 96 10/10/17 07:33 Nasal Cannula 5.00 10/07/17 20:00 21 Labs Laboratory Tests Test 10/09/17 23:20 10/10/17 05:32 Blood Urea Nitrogen 5 Creatinine 0.72 Random Glucose 220 Calcium Level 7.8 Phosphorus Level 2.0 Magnesium Level 1.6 Sodium Level 137 Potassium Level 2.8 Chloride Level 104 Carbon Dioxide Level 23.3 Anion Gap 10 Estimat Glomerular Filtration Rate 167 Vancomycin Level Trough 12.6 White Blood Count 12.2 Red Blood Count 3.66 Hemoglobin 9.3 Hematocrit 28.2 Mean Corpuscular Volume 77.1 Mean Corpuscular Hemoglobin 25.5 Mean Corpuscular Hemoglobin Concent 33.1 Red Cell Distribution Width 14.2 Platelet Count 330 Mean Platelet Volume 9.0 Neutrophils (%) (Auto) 79.2 Lymphocytes (%) (Auto) 8.1 Monocytes (%) (Auto) 10.9 Eosinophils (%) (Auto) 1.2 Basophils (%) (Auto) 0.6 Neutrophils # (Auto) 9.7 Lymphocytes # (Auto) 1.0 Monocytes # (Auto) 1.3 Eosinophils # (Auto) 0.2 Basophils # (Auto) 0.1 CBC Comment AUTO DIFF Differential Total Cells Counted 100 Neutrophils % (Manual) 71 Band Neutrophils % 3 Lymphocytes % 7 Monocytes % 15 Eosinophils % 1 Basophils % 1 Neutrophils # (Manual) 9.3 Myelocytes 2 Differential Comment FINAL DIFF MANUAL Toxic Vacuolation PRESENT Platelet Estimate NORMAL Platelet Morphology Comment NORMAL Red Cell Morphology Comment NORMAL Date/Time Source Procedure Growth Status 10/06/17 21:45 Blood Peripheral Aerobic Blood Culture - Preliminary NO GROWTH IN 4 DAYS Resulted 10/06/17 21:45 Blood Peripheral Anaerobic Blood Culture - Preliminary NO GROWTH IN 4 DAYS Resulted 10/07/17 02:00 Tissue Abdomen Gram Stain - Final Complete 10/07/17 02:00 Wound Culture - Final Anaerobic Gram Positive Cocci Complete Cardiovascular: Regular Lungs: Clear Abdomen: Non-distended, Non-tender, Other (see below) Extremities: No edema Narrative Exam Large LEFT lower quadrant s/p I&D--- Wound Vac in place with good seal A/P Assessment and Plan 22 year old male s/p I&D of LEFT lower quadrant abdomen abscess -Diabetic diet -Remain off insulin drip -Plan for Wound Vac change tomorrow at bedside -Okay to transfer to floor from GS standpoint Attending Statement The exam, history, and the medical decision-making described in the above note were completed with the assistance of the mid-level provider. I reviewed and agree with the findings presented. I attest that I had a [id number] encounter with the patient on the same day, and personally performed and documented my assessment and findings in the medical record. Abdominal exam: non-distended, non-tender to palpation, dressing intact, no signs of further necrosis or infection continue wound care and medical mgmt Ryanne Lepe Oct 10, 2017 16:21 Abebe Verduzco MD Oct 17, 2017 17:09
--- NOTE | 2017-10-10 17:34 | PD.CONS ---
History of Present Illness Service Infectious disease Consult Requested By Dr Surinder Cruz Reason for Consult Evaluate patient with anaerobic gram-positive cocci in tissue culture Primary Care Physician No Primary Care Physician Diagnoses: History of Present Illness Patient seen and examined. Records reviewed. Patient is a 22-year-old morbidly obese male, presented to the hospital complaining of draining wounds on his left lower abdominal wall. He has developed increasing pain and swelling and the drainage was foul smelling. There is no mention of any fever or chills. He denies any prior diagnosis of diabetes. He has not been sexually active in over a year. He does shave the inguinal region, mons pubis and scrotum. He states that he has had these numerous times in the past.There's been no nausea or vomiting. Imaging study showed air in the subcutaneous tissue. Gen. surgery was consult did and the patient underwent debridement of a necrotizing soft tissue infection in the left lower abdominal wall. Culture grew some skin ryan and anaerobic gram- positive cocci. His white count was initially elevated and that has improved. Patient has not really required any pressors. Currently he complains of pain on the left lower quadrant for he has to open wound. Wound VAC was placed today. He has some low-grade temps. Urgently on vancomycin and clindamycin. Infectious disease consultation has been requested to evaluate the patient. Review of Systems Constitutional: DENIES: Fever, Chills, Night Sweats Eyes: DENIES: Eye pain Ears, nose, mouth, throat: DENIES: Nasal discharge, Oral lesions, Throat pain, Ear Pain, Running Nose, Sinus Pain Respiratory: DENIES: Cough, Sputum production, Shortness of breath Cardiovascular: DENIES: Chest pain, Palpitations, Syncope Gastrointestinal: COMPLAINS OF: Abdominal pain, DENIES: Diarrhea, Nausea, Vomiting, Difficulty Swallowing Genitourinary: DENIES: Urgency, Hematuria, Dysuria Musculoskeletal: DENIES: Joint pain, Joint Swelling, Back pain Integumentary: DENIES: Rash Neurologic: DENIES: Headache, Localized weakness Psychiatric: DENIES: Confusion, Depression, Hallucinations Past Family Social History Allergies: Coded Allergies: No Known Allergies (Unverified , 10/06/17) Past Medical History No prior medical history Past Surgical History No surgery Reported Medications No medications at home Active Ordered Medications Current Medications Medications (Trade) Dose Ordered Sig/Josh Route Start Time Stop Time Status Last Admin (NS Flush) 2 ml UNSCH PRN IV FLUSH 10/06/17 22:45 (NS Flush) 2 ml BID IV FLUSH 10/07/17 09:00 10/10/17 09:00 (Tylenol) 650 mg Q6H PRN PO 10/06/17 22:45 10/07/17 17:25 (Morphine Inj) 2 mg Q2H PRN IV PUSH 10/06/17 22:45 10/09/17 10:11 (Zofran Inj) 4 mg Q6H PRN IV PUSH 10/06/17 22:45 (Restoril) 15 mg HS PRN PO 10/06/17 22:45 (Heparin Inj) 5,000 units Q8HR SQ 10/06/17 22:45 10/10/17 04:41 Miscellaneous Information 1 Q361D XX 10/06/17 22:45 (Chlorhexidine 2% Cloth) 3 pack Taper DAILY@04 TOP 10/07/17 04:00 10/03/18 03:59 (Chlorhexidine 2% Cloth) 3 pack UNSCH PRN TOP 10/06/17 22:45 (Geraldine-Colace) 1 tab BID PO 10/07/17 09:00 10/08/17 09:56 (Milk Of Magnesia Liq) 30 ml Q12H PRN PO 10/06/17 22:45 (Senokot) 17.2 mg Q12H PRN PO 10/06/17 22:45 (Dulcolax Supp) 10 mg DAILY PRN RECTAL 10/06/17 22:45 (Lactulose Liq) 30 ml DAILY PRN PO 10/06/17 22:45 Potassium Chloride 100 ml @ 50 mls/hr Q2H PRN IV 10/06/17 23:00 Potassium Chloride 100 ml @ 50 mls/hr Q2H PRN IV 10/06/17 23:00 10/09/17 06:45 (K-Lyte Cl Eff) 50 meq UNSCH PRN PO 10/06/17 23:00 Potassium Chloride 100 ml @ 25 mls/hr UNSCH PRN IV 10/06/17 23:00 Potassium Chloride 100 ml @ 50 mls/hr Q2H PRN IV 10/06/17 23:00 Magnesium Sulfate 4 gm/Sodium Chloride 100 ml @ 50 mls/hr UNSCH PRN IV 10/06/17 23:00 (Mag-Ox) 800 mg UNSCH PRN PO 10/06/17 23:00 Magnesium Sulfate 2 gm/Sodium Chloride 100 ml @ 50 mls/hr UNSCH PRN IV 10/06/17 23:00 (K-Phos) 2,000 mg Q4H PRN PO 10/06/17 23:00 Sodium Phosphate 30 mmol/Sodium Chloride 250 ml @ 42 mls/hr UNSCH PRN IV 10/06/17 23:00 (K-Phos) 2,000 mg UNSCH PRN PO/TUBE 10/06/17 23:00 Potassium Phosphate 30 mmol/ Sodium Chloride 260 ml @ 42 mls/hr UNSCH PRN IV 10/06/17 23:00 10/10/17 01:40 Piperacillin Sod/ Tazobactam Sod 100 ml @ 200 mls/hr Q6H IV 10/07/17 06:00 10/10/17 12:00 Clindamycin/ Sodium Chloride 50 ml @ 100 mls/hr Q6HR IV 10/08/17 00:00 10/10/17 12:00 (Albuterol Neb) 2.5 mg Q2HR NEB PRN NEB 10/08/17 12:15 10/09/17 19:26 (D50w (Vial) Inj) 50 ml UNSCH PRN IV PUSH 10/08/17 12:30 (Glucagon Inj) 1 mg STAT PRN IM 10/08/17 12:30 (NovoLIN R SUPPLEMENTAL SCALE) 1 ACHS03 SLIDE SCALE SQ 10/08/17 17:00 10/10/17 04:23 (Bactroban Nasal 2% Oint) 1 applic Taper BID EACH NARE 10/08/17 21:00 10/04/18 20:59 10/09/17 20:34 ([place] 5-325 Mg) 1 tab Q4H PRN PO 10/08/17 12:45 10/10/17 04:39 (Mag-Ox) 400 mg Q12HR PO 10/09/17 11:00 10/11/17 10:59 10/10/17 09:00 (Trandate Inj) 10 mg Q4H PRN IV PUSH 10/09/17 23:15 10/10/17 05:18 Magnesium Sulfate/ Dextrose 100 ml @ 100 mls/hr Q1H IV 10/10/17 14:15 10/10/17 18:14 (KCl) 60 meq Q12HR PO 10/10/17 14:15 10/10/17 21:01 Potassium Phosphate 30 mmol/ Sodium Chloride 260 ml @ 43.333 mls/ hr ONCE ONCE IV 10/10/17 15:00 10/10/17 20:59 (Pepcid) 20 mg BID PO 10/10/17 21:00 (Levemir Inj) 20 units HS SQ 10/10/17 21:00 Ampicillin Sodium/ Sulbactam Sodium 3 gm/Sodium Chloride 100 ml @ 200 mls/hr Q6H IV 10/10/17 17:30 UNV Family History Family history of diabetes Social History Rare alcohol use No smoking Denies illicit drugs Physical Exam Vital Signs Vital Signs Date Time Temp Pulse Resp B/P (MAP) Pulse Ox O2 Delivery O2 Flow Rate FiO2 10/10/17 12:00 104 10/10/17 12:00 99.1 109 18 147/87 (107) 96 10/10/17 10:00 102 10/10/17 08:00 104 10/10/17 08:00 99.1 104 18 122/66 (84) 96 10/10/17 07:33 99 Nasal Cannula 5.00 10/10/17 07:00 97 Nasal Cannula 2.00 10/10/17 06:00 102 10/10/17 04:00 99.1 112 18 159/77 (104) 96 10/10/17 04:00 112 10/10/17 02:00 114 10/10/17 00:00 116 10/10/17 00:00 99.3 116 26 149/71 (97) 99 10/09/17 22:00 126 10/09/17 20:00 99.3 122 28 168/99 (122) 93 10/09/17 20:00 95 Nasal Cannula 2.00 10/09/17 20:00 122 10/09/17 19:30 98 Nasal Cannula 5.00 10/09/17 18:00 122 Physical Exam GENERAL: Patient is an obese, well-developed patient, awake and alert, not in respiratory distress. He does not look toxic appearing SKIN: Warm and dry. Has hyperpigmented scars on his anterior abdominal wall that looks like prior abscesses which he said are due to his pants HEAD: Atraumatic. Normocephalic. No temporal wasting, or tenderness. EYES: [place] conjunctiva. No petechia or hemorrhage. Pupils equal, round and reactive to light. Extraocular movements full and intact. No scleral icterus. No injection or drainage. EARS, NOSE AND THROAT: Nose without bleeding or purulent nasal discharge. No sinus tenderness. Mucous membranes pink and moist. No oral lesions noted. No exudate. No oral thrush. NECK: Trachea midline. Supple and not tender, no meningeal signs CARDIOVASCULAR: Regular rate and rhythm. No murmurs, rubs or gallops heard RESPIRATORY: Clear to auscultation. Breath sounds equal bilaterally. No rales , wheezing or rhonchi ABDOMEN: Soft, obese, nondistended. Bowel sounds present and normoactive. There is a large wound on the left lower abdominal area close to the groin with wound vac in place, still with surrounding erythema and induration, and tenderness EXTREMITIES: No clubbing, cyanosis, or edema. No joint effusion, has good ROM. No calf tenderness. Well perfused and warm. NEUROLOGICAL: Awake and alert. Cranial nerves grossly intact. Motor grossly within normal limits. PSYCHIATRIC: Normal affect, calm and cooperative. LINE: No evidence of infection Laboratory Laboratory Tests Test 10/09/17 23:20 10/10/17 05:32 Blood Urea Nitrogen 5 Creatinine 0.72 Random Glucose 220 Calcium Level 7.8 Phosphorus Level 2.0 Magnesium Level 1.6 Sodium Level 137 Potassium Level 2.8 Chloride Level 104 Carbon Dioxide Level 23.3 Anion Gap 10 Estimat Glomerular Filtration Rate 167 Vancomycin Level Trough 12.6 White Blood Count 12.2 Red Blood Count 3.66 Hemoglobin 9.3 Hematocrit 28.2 Mean Corpuscular Volume 77.1 Mean Corpuscular Hemoglobin 25.5 Mean Corpuscular Hemoglobin Concent 33.1 Red Cell Distribution Width 14.2 Platelet Count 330 Mean Platelet Volume 9.0 Neutrophils (%) (Auto) 79.2 Lymphocytes (%) (Auto) 8.1 Monocytes (%) (Auto) 10.9 Eosinophils (%) (Auto) 1.2 Basophils (%) (Auto) 0.6 Neutrophils # (Auto) 9.7 Lymphocytes # (Auto) 1.0 Monocytes # (Auto) 1.3 Eosinophils # (Auto) 0.2 Basophils # (Auto) 0.1 CBC Comment AUTO DIFF Differential Total Cells Counted 100 Neutrophils % (Manual) 71 Band Neutrophils % 3 Lymphocytes % 7 Monocytes % 15 Eosinophils % 1 Basophils % 1 Neutrophils # (Manual) 9.3 Myelocytes 2 Differential Comment FINAL DIFF MANUAL Toxic Vacuolation PRESENT Platelet Estimate NORMAL Platelet Morphology Comment NORMAL Red Cell Morphology Comment NORMAL Date/Time Source Procedure Growth Status 10/06/17 21:45 Blood Peripheral Aerobic Blood Culture - Preliminary NO GROWTH IN 4 DAYS Resulted 10/06/17 21:45 Blood Peripheral Anaerobic Blood Culture - Preliminary NO GROWTH IN 4 DAYS Resulted 10/07/17 02:00 Tissue Abdomen Gram Stain - Final Complete 10/07/17 02:00 Wound Culture - Final Anaerobic Gram Positive Cocci Complete Result Diagram: 10/10/17 0532 10/09/17 2320 Imaging RADIOLOGY STUDIES/FILMS REVIEWED Chest X-Ray 10/07/17 0000 Signed Impressions: Service Date/Time: Saturday, October 07, 2017 05:05 - CONCLUSION: No acute disease. There is no evidence of pneumonia. Yang Castillo MD Abdomen/Pelvis CT 10/06/172125 Signed Impressions: Service Date/Time: Friday, October 06, 2017 22:23 - CONCLUSION: 1. Abnormal subcutaneous tissues in the left lower quadrant with a large area of discharged gas, surrounding induration of the fat and extension into the left inguinal region. 2. Absent right kidney. Issac Romano MD Assessment and Plan Assessment and Plan IMPRESSION Necrotizing soft tissue infection L lower abdominal wall, patient with morbid obesity and new DM - S/P debridement, has wound vac in place Morbid obesity Low grade temps Leukocytosis, improving New DM RECOMMENDATION Stop Vancomycin IV Unasyn Keep Clindamycin at least 72 hours Control sugars Follow temps Monitor progress I will follow along with you Thank you for this consultation Discussed Condition With D/W [place] Saldivar MD Oct 10, 2017 17:34
[2017-10-10] MEDS: AMPICILLIN-SULBACTAM INJ 3 GM in SODIUM CHLORIDE 0.9% INJ 100 ML IV SCH ×2 (18:00→22:34)
[2017-10-10 18:55] LABS: POTASSIUM 2.9 MEQ/L (3.5-5.1)
[2017-10-10] MEDS: FAMOTIDINE 20 MG TAB PO SCH (20:16)
[2017-10-10] MEDS: POTASSIUM CHLOR 20 MEQ PREMIX 100 ML IV PRN (20:16)
[2017-10-10] MEDS: INSULIN DETEMIR 100 UNITS/ML VIAL SQ SCH (20:17)
[2017-10-10] MEDS: POTASSIUM CHLOR 20 MEQ PREMIX 100 ML IV SCH ×2 (21:44→22:39)
[2017-10-10] MEDS: TEMAZEPAM 15 MG CAP PO PRN (23:48)
[2017-10-11] VITALS (8 sets, daily range): BP systolic 128–136; BP diastolic 66–79; PULSE 115–126; RESP 17–20; TEMP 98.2–99.9; O2SAT 95–96
[2017-10-11] MEDS: POTASSIUM CHLOR 20 MEQ PREMIX 100 ML IV SCH ×2 (00:37→02:30)
[2017-10-11] MEDS: CLINDAMYCIN 600 MG/NS PREMIX 50 ML IV SCH ×4 (00:37→18:17)
[2017-10-11] MEDS: CHLORHEXIDINE GLUCONATE 2 % 1 PACK (2 CLOTHS) TOP SCH (04:00)
[2017-10-11] MEDS: AMPICILLIN-SULBACTAM INJ 3 GM in SODIUM CHLORIDE 0.9% INJ 100 ML IV SCH ×3 (04:06→18:00)
[2017-10-11] MEDS: HEPARIN SODIUM - SQ 10,000 UNITS/ML VIAL SQ SCH ×3 (04:12→22:03)
[2017-10-11] MEDS: INSULIN NovoLIN REGULAR SUPPLEMENTAL SCALE SQ SCH ×5 (04:19→22:03)
[2017-10-11 07:09] LABS: AUTOMATED NEUTROPHIL # 13.8 TH/MM3 (1.8-7.7); BASOPHIL # 0.1 TH/MM3 (0-0.2); BASOPHIL % 0.6 % (0.0-2.0); EOSINOPHIL # 0.2 TH/MM3 (0-0.4); EOSINOPHIL % 1.4 % (0.0-4.0); HEMATOCRIT 27.3 % (39.0-51.0); LYMPH % 11.3 % (9.0-44.0); MEAN CELL VOLUME 77.8 FL (80.0-100.0); MEAN CORPUSCULAR HEMOGLOBIN 25.6 PG (27.0-34.0); NEUT % 76.7 % (16.0-70.0); PLATELET COUNT 370 TH/MM3 (150-450); RED CELL DISTRIBUTION WIDTH 14.2 % (11.6-17.2)
[2017-10-11 07:32] LABS: BICARBONATE 22.7 MEQ/L (21.0-32.0); MAGNESIUM 1.4 MG/DL (1.5-2.5); POTASSIUM 3.1 MEQ/L (3.5-5.1)
[2017-10-11 08:09] LABS: HEMO FLAGS AUTO DIFF
[2017-10-11 08:11] LABS: PLATELET ESTIMATE SMEAR NORMAL (NORMAL); PLATELET MORPHOLOGY ENLARGED (NORMAL); TOXIC GRANULATION 1+ (NORMAL); TOXIC VACUOLATION PRESENT (NONE SEEN)
[2017-10-11 08:12] LABS: SCAN/DIFF AUTO DIFF CONFIRMED
[2017-10-11] MEDS ORDERED: POTASSIUM CHLORIDE 20 MEQ PWD PACKET PO ONE (09:00)
[2017-10-11] MEDS: MUPIROCIN 2% OINT 1 APPLIC/GM SYR EACH NARE SCH ×2 (09:10→21:00)
[2017-10-11] MEDS: MAGNESIUM OXIDE 400 MG TAB PO SCH (09:10)
[2017-10-11] MEDS: FAMOTIDINE 20 MG TAB PO SCH ×2 (09:10→22:04)
[2017-10-11] MEDS: DOCUSATE SODIUM 50 MG/SENNA 8.6 MG TAB PO SCH ×2 (09:10→21:00)
--- NOTE | 2017-10-11 13:17 | HHI.PR ---
Subjective Remarks Some ambulation today. No complaints from the patient, pain controlled. No fevers. Objective Vital Signs Date Time Temp Pulse Resp B/P (MAP) Pulse Ox O2 Delivery O2 Flow Rate FiO2 10/11/17 12:00 99.9 126 17 131/69 (89) 96 10/11/17 10:55 3.00 95 10/11/17 08:00 99.4 117 17 136/79 (98) 95 10/11/17 03:29 122 10/10/17 23:54 115 10/10/17 23:51 100.0 117 20 138/83 (101) 95 10/10/17 20:15 98 Nasal Cannula 3.00 10/10/17 20:00 112 10/10/17 20:00 98.3 110 18 146/70 (95) 98 10/10/17 19:32 93 Nasal Cannula 5.00 10/10/17 19:00 97 Nasal Cannula 3.00 10/10/17 18:00 104 10/10/17 16:00 104 10/10/17 16:00 98.0 109 18 147/87 (107) 96 I/O 10/10/17 10/10/17 10/10/17 10/11/17 10/11/17 10/11/17 06:59 14:59 22:59 06:59 14:59 22:59 Intake Total 2183 ml 1050 ml 700 ml Output Total 2700 ml 4000 ml 1600 ml 500 ml Balance -517 ml -2950 ml -900 ml -500 ml Intake Oral 800 ml 1050 ml IV Total 1383 ml 700 ml Output Urine Total 2200 ml 3800 ml 1600 ml 500 ml Stool Total 450 ml 200 ml Drainage Total 50 ml # Voids 1 # Bowel Movements 3 Result Diagram: 10/11/1745 10/11/1745 Objective Remarks GENERAL: NAD, A&Ox3 HEAD: Normocephalic. NECK: Supple, trachea midline. No lymphadenopathy. EYES: No scleral icterus. No injection or drainage. CARDIOVASCULAR: Regular rate and rhythm without murmurs, gallops, or rubs. RESPIRATORY: Breath sounds equal bilaterally. No accessory muscle use. GASTROINTESTINAL: Abdomen soft, non-tender, nondistended. MUSCULOSKELETAL: No cyanosis, or edema. Wound VAC in place at left groin SKIN: Warm and dry. NEURO: No focal neurological deficitis. A/P Problem List: (1) Necrotizing fasciitis ICD Code: M72.6 - Necrotizing fasciitis Status: Acute (2) Sepsis ICD Code: A41.9 - Sepsis, unspecified organism Status: Acute (3) Severe sepsis ICD Code: A41.9 - Sepsis, unspecified organism; R65.20 - Severe sepsis without septic shock Status: Acute Assessment and Plan Assessment and Plan 22 year old male admitted with necrotizing fascitis at left groin, and sepsis. Necrotizing fasciitis Leukocytosis Present at left groin Continue Zosyn Continue vancomycin Continue clindamycin Infectious disease following Continue to monitor cultures Wound VAC placed 10/09/17 Follow CBC Continue as needed pain treatments Rectal tube discontinued 10/11/17 Diabetes mellitus type 2 Follow blood sugars Insulin sliding scale Diabetic diet Continue detemir insulin Hypopotassemia Hypomagnesium Continue to monitor levels Replace as needed DVT prophylaxis Heparin Kam Tinsley MD Oct 11, 2017 13:17
[2017-10-11] MEDS: SODIUM CHLORIDE 0.9% FLUSH 10 ML FLUSH IV FLUSH SCH ×2 (13:43→22:12)
[2017-10-11] MEDS: ACETAMINOPHEN/HYDROcodone 325 MG/5 MG TAB PO PRN ×3 (13:43→22:10)
[2017-10-11] MEDS: MORPHINE SULFATE 4 MG/ML INJ IV PUSH PRN (16:04)
--- NOTE | 2017-10-11 18:06 | PD.WCN.NOT ---
Wound Consult Description: L lower abdomen Recommendation: May need Veraflo cleanse VAC to L lower abdominal Neg Pressure Wound Therapy Wound Location Wound Location: L lower abdomen Wound Description Length: ~5cm Width: 27cm Depth: ~5.5cm Wound bed appearance: Wound bed presents with 30% clean red non granulation tissue, ~20% adipose tissue,~20% muscle and ~ 30% yellow exudate. Wound is vascular draining minimal amount of sanguinous drainage without odor Periwound appearance: Other (Small area of partial thickness skin loss between 10 and 12 o'clock.) Settings Suction: 125 mmHg, Continuous Intensity: Low Other Information: Bridged, Windowpaned, Mushroomed Foam type: Black Number of pieces: 2 Additonal Information Cleansed wound to L lower abdomen with 50ml of normal saline and pat dry.Applied skin prep to periwound and to L anterior thigh. Stoma paste was then applied to lower abdominal crease and groin crease to seal dressing.VAc drape was bridged from wound margin at 6 o'clock to L anterior thigh.Xeroform was applied in a single layer to periwound partial thickness skin loss.Applied one long strip piece of granufoam into wound bed in a cinnamon roll fashion. Applied additional piece of granufoam between 6 and 7 o'clock.A total of two pieces of granufoam were placed into wound bed. Covered granufoam with VAC drape. Cut hole in VAC drape to expose granufoam and bridged one strip of granufoam from wound bed to L anterior thigh over VAC drape. Applied Sensi trac pad with attached mushroom cap of granufoam to bridged foam on L anterior thigh. Covered all exposed VAC foam with drape to seal.Wound VAC suctioning at 125 mm/hg low continuous suction with low leak rate. Patient tolerated fairly with complaints of pain with granufoam placement and cleaning. Patient was premedicated for pain prior to VAC dressing application.REX [place] in room during VAC change. Ryanne ALLEN in room for VAC dressing removal and wound assessment. Reina Kendrick [facility] Oct 11, 2017 18:06
--- NOTE | 2017-10-11 18:15 | HHI.PR ---
Subjective Subjective Notes Resting in bed REX Perales and REX Heller at bedside for Wound Vac change Objective Vitals/I&O Vital Signs Date Time Temp Pulse Resp B/P (MAP) Pulse Ox O2 Delivery O2 Flow Rate FiO2 10/11/17 16:00 98.2 115 17 128/71 (90) 95 10/11/17 10:55 3.00 95 10/11/17 10:45 Nasal Cannula Labs Laboratory Tests Test 10/11/17 06:45 White Blood Count 18.0 Red Blood Count 3.50 Hemoglobin 9.0 Hematocrit 27.3 Mean Corpuscular Volume 77.8 Mean Corpuscular Hemoglobin 25.6 Mean Corpuscular Hemoglobin Concent 33.0 Red Cell Distribution Width 14.2 Platelet Count 370 Mean Platelet Volume 8.8 Neutrophils (%) (Auto) 76.7 Lymphocytes (%) (Auto) 11.3 Monocytes (%) (Auto) 10.0 Eosinophils (%) (Auto) 1.4 Basophils (%) (Auto) 0.6 Neutrophils # (Auto) 13.8 Lymphocytes # (Auto) 2.0 Monocytes # (Auto) 1.8 Eosinophils # (Auto) 0.2 Basophils # (Auto) 0.1 CBC Comment AUTO DIFF Differential Comment AUTO DIFF CONFIRMED Toxic Granulation 1+ Toxic Vacuolation PRESENT Platelet Estimate NORMAL Platelet Morphology Comment ENLARGED Blood Urea Nitrogen 4 Creatinine 0.72 Random Glucose 159 Calcium Level 7.6 Phosphorus Level 2.4 Magnesium Level 1.4 Sodium Level 134 Potassium Level 3.1 Chloride Level 102 Carbon Dioxide Level 22.7 Anion Gap 9 Estimat Glomerular Filtration Rate 167 Date/Time Source Procedure Growth Status 10/06/17 21:45 Blood Peripheral Aerobic Blood Culture - Final NO GROWTH IN 5 DAYS Complete 10/06/17 21:45 Blood Peripheral Anaerobic Blood Culture - Final NO GROWTH IN 5 DAYS Complete 10/07/17 02:00 Tissue Abdomen Gram Stain - Final Complete 10/07/17 02:00 Wound Culture - Final Anaerobic Gram Positive Cocci Complete Cardiovascular: Regular Lungs: Clear Abdomen: Other (see below ) Extremities: No edema Narrative Exam Large LEFT lower quadrant s/p I&D--- Wound Vac removed---tissue with minimal exudate; cleaned and Wound Vac re-applied A/P Assessment and Plan 22 year old male s/p I&D of LEFT lower quadrant abdomen abscess -Diabetic diet -Wound Vac changed today -ID following for antibiotics Ryanne Lepe Oct 11, 2017 18:15
[2017-10-11] MEDS: INSULIN DETEMIR 100 UNITS/ML VIAL SQ SCH (22:08)
[2017-10-12] VITALS (11 sets, daily range): BP systolic 119–142; BP diastolic 58–93; PULSE 111–128; RESP 17–20; TEMP 96.5–100.2; O2SAT 87–99
[2017-10-12] MEDS: CLINDAMYCIN 600 MG/NS PREMIX 50 ML IV SCH ×4 (00:08→19:21)
[2017-10-12] MEDS: TEMAZEPAM 15 MG CAP PO PRN ×2 (00:09→21:05)
[2017-10-12] MEDS: CHLORHEXIDINE GLUCONATE 2 % 1 PACK (2 CLOTHS) TOP SCH (00:57)
[2017-10-12] MEDS: INSULIN NovoLIN REGULAR SUPPLEMENTAL SCALE SQ SCH ×5 (01:46→21:14)
[2017-10-12] MEDS: ACETAMINOPHEN 325 MG TAB PO PRN (04:51)
[2017-10-12] MEDS: AMPICILLIN-SULBACTAM INJ 3 GM in SODIUM CHLORIDE 0.9% INJ 100 ML IV SCH ×5 (04:52→19:21)
[2017-10-12] MEDS: HEPARIN SODIUM - SQ 10,000 UNITS/ML VIAL SQ SCH ×3 (04:57→21:03)
[2017-10-12] MEDS: RESP: ALBUTEROL 2.5 MG/3 ML NEB (PRN) NEB (05:17)
[2017-10-12] MEDS ORDERED: POTASSIUM CHLORIDE 20 MEQ PWD PACKET PO ONE ×2 (08:15→14:30)
[2017-10-12] MEDS: DOCUSATE SODIUM 50 MG/SENNA 8.6 MG TAB PO SCH ×2 (09:00→21:00)
[2017-10-12] MEDS: MUPIROCIN 2% OINT 1 APPLIC/GM SYR EACH NARE SCH ×2 (09:00→21:00)
[2017-10-12 09:33] LABS: ALKALINE PHOSPHATASE 107 U/L (45-117); ALT (GPT) 18 U/L (12-78); ANION GAP 10 MEQ/L (5-15); AST (GOT) 37 U/L (15-37); BICARBONATE 26.1 MEQ/L (21.0-32.0); BLOOD UREA NITROGEN 3 MG/DL (7-18); CHLORIDE 102 MEQ/L (98-107); GLOMERULAR FILTRATION RATE 155 ML/MIN (>89); MAGNESIUM 1.4 MG/DL (1.5-2.5); SODIUM (NA) 138 MEQ/L (136-145); TOTAL BILIRUBIN ADULT 0.3 MG/DL (0.2-1.0)
[2017-10-12 09:40] LABS: POTASSIUM 2.6 MEQ/L (3.5-5.1)
[2017-10-12] MEDS: ACETAMINOPHEN/HYDROcodone 325 MG/5 MG TAB PO PRN ×3 (09:56→19:32)
[2017-10-12] MEDS: FAMOTIDINE 20 MG TAB PO SCH ×2 (09:56→21:01)
--- NOTE | 2017-10-12 10:50 | HHI.PR ---
Subjective Remarks Patient continues to ambulate short distances today. He had a bowel movement complains of no pain with the bowel movement. Pain from left groin wound is under control. Potassium level is significantly low today. Objective Vital Signs Date Time Temp Pulse Resp B/P (MAP) Pulse Ox O2 Delivery O2 Flow Rate FiO2 10/12/17 10:41 94 Nasal Cannula 2.00 10/12/17 08:00 98.1 114 17 119/58 (78) 94 10/12/17 06:24 98.6 10/12/17 06:11 119 10/12/17 05:16 100.2 118 20 132/93 (106) 98 10/12/17 01:00 111 10/12/17 00:48 Nasal Cannula 3.00 10/12/17 00:13 98.3 116 20 142/67 (92) 96 10/11/17 22:52 120 10/11/17 21:07 99.4 116 20 130/66 (87) 96 10/11/17 21:03 95 Nasal Cannula 4.00 10/11/17 19:12 124 10/11/17 16:00 98.2 115 17 128/71 (90) 95 10/11/17 12:00 99.9 126 17 131/69 (89) 96 10/11/17 10:55 3.00 95 I/O 10/11/17 10/11/17 10/11/17 10/12/17 10/12/17 10/12/17 07:00 15:00 23:00 07:00 15:00 23:00 Intake Total 700 ml 820 ml 400 ml Output Total 1600 ml 500 ml 1925 ml 1200 ml 100 ml Balance -900 ml -500 ml -1105 ml -800 ml -100 ml Intake Oral 720 ml IV Total 700 ml 100 ml 400 ml Output Urine Total 1600 ml 500 ml 1925 ml 1200 ml Drainage Total 100 ml # Voids 1 1 # Bowel Movements 1 Result Diagram: 10/11/17 0645 10/12/17 0713 Objective Remarks GENERAL: NAD, A&Ox3 HEAD: Normocephalic. NECK: Supple, trachea midline. No lymphadenopathy. EYES: No scleral icterus. No injection or drainage. CARDIOVASCULAR: Regular rate and rhythm without murmurs, gallops, or rubs. RESPIRATORY: Breath sounds equal bilaterally. No accessory muscle use. GASTROINTESTINAL: Abdomen soft, non-tender, nondistended. MUSCULOSKELETAL: No cyanosis, or edema. Wound VAC in place at left groin SKIN: Warm and dry. NEURO: No focal neurological deficitis. A/P Problem List: (1) Necrotizing fasciitis ICD Code: M72.6 - Necrotizing fasciitis Status: Acute (2) Sepsis ICD Code: A41.9 - Sepsis, unspecified organism Status: Acute (3) Severe sepsis ICD Code: A41.9 - Sepsis, unspecified organism; R65.20 - Severe sepsis without septic shock Status: Acute Assessment and Plan Assessment and Plan 22 year old male admitted with necrotizing fascitis at left groin, and sepsis. Labs reviewed Hypokalemia present. Replacements provided and further monitoring this afternoon. Labs ordered for further monitoring this afternoon and tomorrow morning. Necrotizing fasciitis Leukocytosis Present at left groin Continue Zosyn Continue vancomycin Continue clindamycin Infectious disease following Continue to monitor cultures Wound VAC placed 10/09/17 Follow CBC Continue as needed pain treatments Rectal tube discontinued 10/11/17 Diabetes mellitus type 2 Follow blood sugars Insulin sliding scale Diabetic diet Continue detemir insulin Hypopotassemia Hypomagnesium Continue to monitor levels Replace as needed DVT prophylaxis Heparin SCDs Kam Cristina MD Oct 12, 2017 10:50
[2017-10-12] MEDS ORDERED: PILL SPLITTER OTHER PRN (11:00)
[2017-10-12] MEDS ORDERED: METOPROLOL TARTRATE 25 MG TAB PO ONE (11:00)
[2017-10-12] MEDS: SODIUM CHLORIDE 0.9% FLUSH 10 ML FLUSH IV FLUSH SCH ×2 (11:14→21:08)
[2017-10-12 12:47] LABS: AUTOMATED NEUTROPHIL # 9.1 TH/MM3 (1.8-7.7); BASOPHIL # 0.1 TH/MM3 (0-0.2); BASOPHIL % 0.6 % (0.0-2.0); EOSINOPHIL # 0.2 TH/MM3 (0-0.4); EOSINOPHIL % 1.5 % (0.0-4.0); HEMATOCRIT 30.7 % (39.0-51.0); LYMPH % 11.1 % (9.0-44.0); LYMPHOCYTE # 1.3 TH/MM3 (1.0-4.8); MEAN CELL VOLUME 78.3 FL (80.0-100.0); MEAN CORPUSCULAR HEMOGLOBIN 25.2 PG (27.0-34.0); MEAN CORPUSCULAR HGB CONC 32.1 % (32.0-36.0); MONO % 8.3 % (0.0-8.0); NEUT % 78.5 % (16.0-70.0); PLATELET COUNT 414 TH/MM3 (150-450); RED BLOOD COUNT 3.92 MIL/MM3 (4.50-5.90); RED CELL DISTRIBUTION WIDTH 14.6 % (11.6-17.2); WHITE BLOOD COUNT 11.6 TH/MM3 (4.0-11.0)
[2017-10-12 12:50] LABS: HEMO FLAGS AUTO DIFF
[2017-10-12 13:31] LABS: BANDS 15 % (0-6); MYELOCYTES 4 % (0-0); NEUTROPHIL # MANUAL DIFF 9.5 TH/MM3 (1.8-7.7); POLYS (SEG NEUTROPHILS) 63 % (16-70); WBC DIFF SAMPLE 100
[2017-10-12 13:32] LABS: PLATELET ESTIMATE SMEAR NORMAL (NORMAL); PLATELET MORPHOLOGY NORMAL (NORMAL); SCAN/DIFF FINAL DIFF MANUAL; TOXIC GRANULATION 1+ (NORMAL)
[2017-10-12] MEDS ORDERED: MAGNESIUM OXIDE 400 MG TAB PO ONE (14:30)
--- NOTE | 2017-10-12 15:26 | HHI.IDPN ---
Subjective Subjective Remarks Patient is a 22-year-old morbidly obese male, presented to the hospital complaining of draining wounds on his left lower abdominal wall. He has developed increasing pain and swelling and the drainage was foul smelling. There is no mention of any fever or chills. He denies any prior diagnosis of diabetes. He has not been sexually active in over a year. He does shave the inguinal region, mons pubis and scrotum. He states that he has had these numerous times in the past.There's been no nausea or vomiting. Imaging study showed air in the subcutaneous tissue. Gen. surgery was consult did and the patient underwent debridement of a necrotizing soft tissue infection in the left lower abdominal wall. Culture grew some skin ryan and anaerobic gram- positive cocci. His white count was initially elevated and that has improved. Patient has not really required any pressors. Currently he complains of pain on the left lower quadrant for he has to open wound. Wound VAC was placed today. He has some low-grade temps. Urgently on vancomycin and clindamycin. Infectious disease consultation has been requested to evaluate the patient. Notes reviewed Temps occ low grade D/W K Sherley ALLEN (Surgery) Has minimal exudate in wound on vac change yesterday Pain under better control No rash No diarrhea NO N/V Antibiotics Current Medications Unasyn Medications (Trade) Dose Ordered Sig/Josh Route Start Time Stop Time Status Last Admin (NS Flush) 2 ml UNSCH PRN IV FLUSH 10/06/17 22:45 (NS Flush) 2 ml BID IV FLUSH 10/07/17 09:00 10/12/17 11:14 (Tylenol) 650 mg Q6H PRN PO 10/06/17 22:45 10/12/17 04:51 (Morphine Inj) 2 mg Q2H PRN IV PUSH 10/06/17 22:45 10/11/17 16:04 (Zofran Inj) 4 mg Q6H PRN IV PUSH 10/06/17 22:45 (Restoril) 15 mg HS PRN PO 10/06/17 22:45 10/12/17 00:09 (Heparin Inj) 5,000 units Q8HR SQ 10/06/17 22:45 10/12/17 13:32 Miscellaneous Information 1 Q361D XX 10/06/17 22:45 (Chlorhexidine 2% Cloth) Taper DAILY@04 TOP 10/07/17 04:00 10/03/18 03:59 (Chlorhexidine 2% Cloth) 3 pack UNSCH PRN TOP 10/06/17 22:45 (Geraldine-Colace) 1 tab BID PO 10/07/17 09:00 10/11/17 09:10 (Milk Of Magnesia Liq) 30 ml Q12H PRN PO 10/06/17 22:45 (Senokot) 17.2 mg Q12H PRN PO 10/06/17 22:45 (Dulcolax Supp) 10 mg DAILY PRN RECTAL 10/06/17 22:45 (Lactulose Liq) 30 ml DAILY PRN PO 10/06/17 22:45 Clindamycin/ Sodium Chloride 50 ml @ 100 mls/hr Q6HR IV 10/08/17 00:00 10/12/17 11:14 (Albuterol Neb) 2.5 mg Q2HR NEB PRN NEB 10/08/17 12:15 10/12/17 05:17 (D50w (Vial) Inj) 50 ml UNSCH PRN IV PUSH 10/08/17 12:30 (Glucagon Inj) 1 mg STAT PRN IM 10/08/17 12:30 (NovoLIN R SUPPLEMENTAL SCALE) 1 [id number] SLIDE SCALE SQ 10/08/17 17:00 10/12/17 13:33 (Bactroban Nasal 2% Oint) 1 applic Taper BID EACH NARE 10/08/17 21:00 10/04/18 20:59 10/11/17 09:10 ([place] 5-325 Mg) 1 tab Q4H PRN PO 10/08/17 12:45 10/12/17 13:32 (Trandate Inj) 10 mg Q4H PRN IV PUSH 10/09/17 23:15 10/10/17 05:18 (Pepcid) 20 mg BID PO 10/10/17 21:00 10/12/17 09:56 (Levemir Inj) 20 units HS SQ 10/10/17 21:00 10/11/17 22:08 Ampicillin Sodium/ Sulbactam Sodium 3 gm/Sodium Chloride 100 ml @ 200 mls/hr Q6H IV 10/10/17 18:00 10/12/17 11:14 (Pill Splitter) 1 ea UNSCH PRN OTHER 10/12/17 11:00 Lines PIV Past Medical History None Allergies: Coded Allergies: No Known Allergies (Unverified , 10/06/17) Objective . Vital Signs Date Time Temp Pulse Resp B/P (MAP) Pulse Ox O2 Delivery O2 Flow Rate FiO2 10/12/17 12:35 126 97 10/12/17 12:00 99.1 128 17 119/67 (84) 87 10/12/17 10:41 94 Nasal Cannula 2.00 10/12/17 08:00 98.1 114 17 119/58 (78) 94 10/12/17 06:24 98.6 10/12/17 06:11 119 10/12/17 05:16 100.2 118 20 132/93 (106) 98 10/12/17 01:00 111 10/12/17 00:48 Nasal Cannula 3.00 10/12/17 00:13 98.3 116 20 142/67 (92) 96 10/11/17 22:52 120 10/11/17 21:07 99.4 116 20 130/66 (87) 96 10/11/17 21:03 95 Nasal Cannula 4.00 10/11/17 19:12 124 10/11/17 16:00 98.2 115 17 128/71 (90) 95 10/12/17 10/12/17 10/13/17 15:00 23:00 07:00 Output Total 100 ml Balance -100 ml Drainage Total 100 ml . Laboratory Tests Test 10/11/17 06:45 10/12/17 12:05 White Blood Count 18.0 TH/MM3 11.6 TH/MM3 Red Blood Count 3.50 MIL/MM3 3.92 MIL/MM3 Hemoglobin 9.0 GM/DL 9.9 GM/DL Hematocrit 27.3 % 30.7 % Mean Corpuscular Volume 77.8 FL 78.3 FL Mean Corpuscular Hemoglobin 25.6 PG 25.2 PG Mean Corpuscular Hemoglobin Concent 33.0 % 32.1 % Red Cell Distribution Width 14.2 % 14.6 % Platelet Count 370 TH/MM3 414 TH/MM3 Mean Platelet Volume 8.8 FL 7.8 FL Neutrophils (%) (Auto) 76.7 % 78.5 % Lymphocytes (%) (Auto) 11.3 % 11.1 % Monocytes (%) (Auto) 10.0 % 8.3 % Eosinophils (%) (Auto) 1.4 % 1.5 % Basophils (%) (Auto) 0.6 % 0.6 % Neutrophils # (Auto) 13.8 TH/MM3 9.1 TH/MM3 Lymphocytes # (Auto) 2.0 TH/MM3 1.3 TH/MM3 Monocytes # (Auto) 1.8 TH/MM3 1.0 TH/MM3 Eosinophils # (Auto) 0.2 TH/MM3 0.2 TH/MM3 Basophils # (Auto) 0.1 TH/MM3 0.1 TH/MM3 CBC Comment AUTO DIFF AUTO DIFF Differential Comment AUTO DIFF CONFIRMED FINAL DIFF MANUAL Toxic Granulation 1+ 1+ Toxic Vacuolation PRESENT Platelet Estimate NORMAL NORMAL Platelet Morphology Comment ENLARGED NORMAL Differential Total Cells Counted 100 Neutrophils % (Manual) 63 % Band Neutrophils % 15 % Lymphocytes % 11 % Monocytes % 7 % Neutrophils # (Manual) 9.5 TH/MM3 Myelocytes 4 % Laboratory Tests Test 10/10/17 17:41 10/11/17 06:45 10/12/17 07:13 10/12/17 12:05 Potassium Level 2.9 MEQ/L 3.1 MEQ/L 2.6 MEQ/L 3.1 MEQ/L Phosphorus Level 3.6 MG/DL 2.4 MG/DL 3.7 MG/DL Blood Urea Nitrogen 4 MG/DL 3 MG/DL Creatinine 0.72 MG/DL 0.77 MG/DL Random Glucose 159 MG/DL 114 MG/DL Calcium Level 7.6 MG/DL 7.9 MG/DL Magnesium Level 1.4 MG/DL 1.4 MG/DL Sodium Level 134 MEQ/L 138 MEQ/L Chloride Level 102 MEQ/L 102 MEQ/L Carbon Dioxide Level 22.7 MEQ/L 26.1 MEQ/L Anion Gap 9 MEQ/L 10 MEQ/L Estimat Glomerular Filtration Rate 167 ML/MIN 155 ML/MIN Total Protein 7.7 GM/DL Albumin 1.4 GM/DL Alkaline Phosphatase 107 U/L Aspartate Amino Transf (AST/SGOT) 37 U/L Alanine Aminotransferase (ALT/SGPT) 18 U/L Total Bilirubin 0.3 MG/DL Imaging Last Impressions Chest X-Ray 10/07/17 0000 Signed Impressions: Service Date/Time: Saturday, October 07, 2017 05:05 - CONCLUSION: No acute disease. There is no evidence of pneumonia. Yang Castillo MD Abdomen/Pelvis CT 10/06/172125 Signed Impressions: Service Date/Time: Friday, October 06, 2017 22:23 - CONCLUSION: 1. Abnormal subcutaneous tissues in the left lower quadrant with a large area of discharged gas, surrounding induration of the fat and extension into the left inguinal region. 2. Absent right kidney. Issac Romano MD Physical Exam GENERAL: Patient is an obese, well-developed patient, awake and alert, NAD SKIN: Warm and dry. Has hyperpigmented scars on his anterior abdominal wall that looks like prior abscesses which he said are due to his pants HEAD: Atraumatic. Normocephalic. No temporal wasting, or tenderness. EYES: [place] conjunctiva. No petechia or hemorrhage. Pupils equal, round and reactive to light. Extraocular movements full and intact. No scleral icterus. EARS, NOSE AND THROAT: Nose without bleeding or purulent nasal discharge. No sinus tenderness. Mucous membranes pink and moist. No oral lesions noted. NECK: Trachea midline. Supple and not tender, no meningeal signs CARDIOVASCULAR: Regular rate and rhythm. No murmurs, rubs or gallops heard RESPIRATORY: Clear to auscultation. Breath sounds equal bilaterally. No rales , wheezing or rhonchi ABDOMEN: Soft, obese, nondistended. Bowel sounds present and normoactive. Wound vac in place LLQ, still with induration around the open wound, but erythema looks less, tender on palpation EXTREMITIES: No clubbing, cyanosis, or edema. No calf tenderness. Well perfused and warm. NEUROLOGICAL: Awake and alert. Cranial nerves grossly intact. Motor grossly within normal limits. PSYCHIATRIC: Normal affect, calm and cooperative. LINE: No evidence of infection Assessment & Plan Remarks IMPRESSION Necrotizing soft tissue infection L lower abdominal wall, patient with morbid obesity and new DM - S/P debridement, has wound vac in place Morbid obesity Low grade temps Leukocytosis, improving New DM RECOMMENDATION Continue IV Unasyn Stop Clindamycin Control sugars Follow temps Monitor progress Wound care per surgery D/W Dr Scooter Cristina (HEPAS) Spoke with Olga ALLEN (Surgery) [place]ia Benson MD Oct 12, 2017 15:26
--- NOTE | 2017-10-12 17:11 | HHI.PR ---
Subjective Subjective Notes Resting in bed No issues Objective Vitals/I&O Vital Signs Date Time Temp Pulse Resp B/P (MAP) Pulse Ox O2 Delivery O2 Flow Rate FiO2 10/12/17 16:00 96.5 116 17 125/67 (86) 99 10/12/17 10:41 Nasal Cannula 2.00 10/11/17 10:55 95 Labs Laboratory Tests Test 10/12/17 07:13 10/12/17 12:05 Blood Urea Nitrogen 3 Creatinine 0.77 Random Glucose 114 Total Protein 7.7 Albumin 1.4 Calcium Level 7.9 Phosphorus Level 3.7 Magnesium Level 1.4 Alkaline Phosphatase 107 Aspartate Amino Transf (AST/SGOT) 37 Alanine Aminotransferase (ALT/SGPT) 18 Total Bilirubin 0.3 Sodium Level 138 Potassium Level 2.6 3.1 Chloride Level 102 Carbon Dioxide Level 26.1 Anion Gap 10 Estimat Glomerular Filtration Rate 155 White Blood Count 11.6 Red Blood Count 3.92 Hemoglobin 9.9 Hematocrit 30.7 Mean Corpuscular Volume 78.3 Mean Corpuscular Hemoglobin 25.2 Mean Corpuscular Hemoglobin Concent 32.1 Red Cell Distribution Width 14.6 Platelet Count 414 Mean Platelet Volume 7.8 Neutrophils (%) (Auto) 78.5 Lymphocytes (%) (Auto) 11.1 Monocytes (%) (Auto) 8.3 Eosinophils (%) (Auto) 1.5 Basophils (%) (Auto) 0.6 Neutrophils # (Auto) 9.1 Lymphocytes # (Auto) 1.3 Monocytes # (Auto) 1.0 Eosinophils # (Auto) 0.2 Basophils # (Auto) 0.1 CBC Comment AUTO DIFF Differential Total Cells Counted 100 Neutrophils % (Manual) 63 Band Neutrophils % 15 Lymphocytes % 11 Monocytes % 7 Neutrophils # (Manual) 9.5 Myelocytes 4 Differential Comment FINAL DIFF MANUAL Toxic Granulation 1+ Platelet Estimate NORMAL Platelet Morphology Comment NORMAL Date/Time Source Procedure Growth Status 10/06/17 21:45 Blood Peripheral Aerobic Blood Culture - Final NO GROWTH IN 5 DAYS Complete 10/06/17 21:45 Blood Peripheral Anaerobic Blood Culture - Final NO GROWTH IN 5 DAYS Complete 10/07/17 02:00 Tissue Abdomen Gram Stain - Final Complete 10/07/17 02:00 Wound Culture - Final Anaerobic Gram Positive Cocci Complete Cardiovascular: Regular Lungs: Clear Abdomen: Non-distended, Non-tender, Other (see below about Wound ) Extremities: No edema Narrative Exam Large LEFT lower quadrant s/p I&D--- Wound Vac in place with good seal A/P Assessment and Plan 22 year old male s/p I&D of LEFT lower quadrant abdomen abscess -Diabetic diet -Plan for Wound Vac change MWF -ID following for antibiotics -Discussed with REX Perales and REX Huang with Wound Care Ryanne Lepe Oct 12, 2017 17:11
[2017-10-12] MEDS: INSULIN DETEMIR 100 UNITS/ML VIAL SQ SCH (21:04)
[2017-10-13] VITALS (10 sets, daily range): BP systolic 127–145; BP diastolic 61–88; PULSE 113–132; RESP 17–20; TEMP 98–100.8; O2SAT 96–99
[2017-10-13] MEDS: AMPICILLIN-SULBACTAM INJ 3 GM in SODIUM CHLORIDE 0.9% INJ 100 ML IV SCH ×4 (01:19→18:28)
[2017-10-13] MEDS: CLINDAMYCIN 600 MG/NS PREMIX 50 ML IV SCH ×2 (01:19→05:55)
[2017-10-13] MEDS: CHLORHEXIDINE GLUCONATE 2 % 1 PACK (2 CLOTHS) TOP SCH (01:27)
[2017-10-13] MEDS: INSULIN NovoLIN REGULAR SUPPLEMENTAL SCALE SQ SCH ×5 (01:27→21:05)
[2017-10-13] MEDS: RESP: ALBUTEROL 2.5 MG/3 ML NEB (PRN) NEB ×2 (02:50→06:20)
[2017-10-13] MEDS: ACETAMINOPHEN 325 MG TAB PO PRN (04:09)
[2017-10-13] MEDS: HEPARIN SODIUM - SQ 10,000 UNITS/ML VIAL SQ SCH ×3 (05:56→20:26)
[2017-10-13] MEDS: MUPIROCIN 2% OINT 1 APPLIC/GM SYR EACH NARE SCH ×2 (09:00→20:25)
[2017-10-13] MEDS ORDERED: POTASSIUM CHLORIDE 20 MEQ PWD PACKET PO ONE ×2 (09:00→16:45)
[2017-10-13] MEDS: DOCUSATE SODIUM 50 MG/SENNA 8.6 MG TAB PO SCH ×2 (09:00→20:27)
[2017-10-13] MEDS ORDERED: MAGNESIUM OXIDE 400 MG TAB PO ONE (09:00)
[2017-10-13] MEDS: METOPROLOL TARTRATE 25 MG TAB PO SCH ×2 (09:49→20:25)
[2017-10-13] MEDS: FAMOTIDINE 20 MG TAB PO SCH ×2 (09:49→20:25)
[2017-10-13] MEDS: SODIUM CHLORIDE 0.9% FLUSH 10 ML FLUSH IV FLUSH SCH ×2 (09:49→20:30)
--- NOTE | 2017-10-13 13:44 | HHI.PR ---
Subjective Remarks Labs pending for today. Based on yesterday's labs electrolyte disturbance may still be present. Patient has tachycardia still this morning. Metoprolol is increased. Electrolytes provided empirically. Objective Vital Signs Date Time Temp Pulse Resp B/P (MAP) Pulse Ox O2 Delivery O2 Flow Rate FiO2 10/13/17 12:00 99.1 132 20 145/70 (95) 96 10/13/17 08:00 98.8 120 19 136/74 (94) 99 10/13/17 05:41 98.6 10/13/17 04:45 128 10/13/17 04:00 100.0 125 20 137/80 (99) 98 10/13/17 02:52 96 Nasal Cannula 3.00 10/13/17 00:00 98.0 119 20 135/82 (99) 96 10/12/17 20:00 98.8 118 20 127/62 (83) 95 10/12/17 16:00 96.5 116 17 125/67 (86) 99 I/O 10/12/17 10/12/17 10/12/17 10/13/17 10/13/17 10/13/17 07:00 15:00 23:00 07:00 15:00 23:00 Intake Total 400 ml 1200 ml 1860 ml Output Total 1200 ml 100 ml 2500 ml 2800 ml 150 ml Balance -800 ml -100 ml -1300 ml -940 ml -150 ml Intake Oral 1200 ml 1560 ml IV Total 400 ml 300 ml Output Urine Total 1200 ml 2450 ml 2800 ml Drainage Total 100 ml 50 ml 150 ml # Bowel Movements 1 1 Result Diagram: 10/12/17 1205 10/12/17 1205 Objective Remarks GENERAL: NAD, A&Ox3 HEAD: Normocephalic. NECK: Supple, trachea midline. No lymphadenopathy. EYES: No scleral icterus. No injection or drainage. CARDIOVASCULAR: Regular rate and rhythm without murmurs, gallops, or rubs. RESPIRATORY: Breath sounds equal bilaterally. No accessory muscle use. GASTROINTESTINAL: Abdomen soft, non-tender, nondistended. MUSCULOSKELETAL: No cyanosis, or edema. Wound VAC in place at left groin SKIN: Warm and dry. NEURO: No focal neurological deficitis. A/P Problem List: (1) Necrotizing fasciitis ICD Code: M72.6 - Necrotizing fasciitis Status: Acute (2) Sepsis ICD Code: A41.9 - Sepsis, unspecified organism Status: Acute (3) Severe sepsis ICD Code: A41.9 - Sepsis, unspecified organism; R65.20 - Severe sepsis without septic shock Status: Acute Assessment and Plan Assessment and Plan 22 year old male admitted with necrotizing fascitis at left groin, and sepsis. Labs reviewed Hypokalemia present. Replacements provided and further monitoring this afternoon. Labs ordered for further monitoring this afternoon and tomorrow morning. Continue to monitor I's. Potassium and magnesium replaced this morning in regards to tachycardia. Labs are pending and low- grade fever overnight. Metoprolol increase in regards to tachycardia. Necrotizing fasciitis Leukocytosis Present at left groin Continue Zosyn Continue vancomycin Continue clindamycin Infectious disease following Continue to monitor cultures Wound VAC placed 10/09/17 Follow CBC Continue as needed pain treatments Rectal tube discontinued 10/11/17 Diabetes mellitus type 2 Follow blood sugars Insulin sliding scale Diabetic diet Continue detemir insulin Hypopotassemia Hypomagnesium Continue to monitor levels Replace as needed DVT prophylaxis Heparin SCDs Kam Cristina MD Oct 13, 2017 13:44
[2017-10-13 15:42] LABS: AUTOMATED NEUTROPHIL # 6.9 TH/MM3 (1.8-7.7); BASOPHIL % 0.5 % (0.0-2.0); EOSINOPHIL # 0.1 TH/MM3 (0-0.4); EOSINOPHIL % 1.4 % (0.0-4.0); HEMATOCRIT 28.7 % (39.0-51.0); LYMPH % 12.5 % (9.0-44.0); LYMPHOCYTE # 1.1 TH/MM3 (1.0-4.8); MEAN CELL VOLUME 78.5 FL (80.0-100.0); MEAN CORPUSCULAR HEMOGLOBIN 25.9 PG (27.0-34.0); MEAN CORPUSCULAR HGB CONC 33.1 % (32.0-36.0); MONO % 7.9 % (0.0-8.0); NEUT % 77.7 % (16.0-70.0); PLATELET COUNT 358 TH/MM3 (150-450); RED BLOOD COUNT 3.66 MIL/MM3 (4.50-5.90); RED CELL DISTRIBUTION WIDTH 14.6 % (11.6-17.2); WHITE BLOOD COUNT 8.9 TH/MM3 (4.0-11.0)
[2017-10-13 15:44] LABS: HEMO FLAGS AUTO DIFF
[2017-10-13 16:00] LABS: ALKALINE PHOSPHATASE 96 U/L (45-117); ALT (GPT) 21 U/L (12-78); ANION GAP 6 MEQ/L (5-15); AST (GOT) 23 U/L (15-37); BICARBONATE 30.1 MEQ/L (21.0-32.0); BLOOD UREA NITROGEN 3 MG/DL (7-18); CHLORIDE 101 MEQ/L (98-107); GLOMERULAR FILTRATION RATE 155 ML/MIN (>89); MAGNESIUM 1.5 MG/DL (1.5-2.5); SODIUM (NA) 137 MEQ/L (136-145); TOTAL BILIRUBIN ADULT 0.2 MG/DL (0.2-1.0)
[2017-10-13 16:13] LABS: PLATELET ESTIMATE SMEAR NORMAL (NORMAL); PLATELET MORPHOLOGY ENLARGED (NORMAL); SCAN/DIFF AUTO DIFF CONFIRMED
[2017-10-13 16:25] LABS: POTASSIUM 2.7 MEQ/L (3.5-5.1)
[2017-10-13] MEDS: INSULIN DETEMIR 100 UNITS/ML VIAL SQ SCH (21:04)
[2017-10-13] MEDS: TEMAZEPAM 15 MG CAP PO PRN (22:41)
[2017-10-13] MEDS: ACETAMINOPHEN/HYDROcodone 325 MG/5 MG TAB PO PRN (22:47)
[2017-10-14] VITALS (9 sets, daily range): BP systolic 121–157; BP diastolic 65–81; PULSE 92–119; RESP 17–20; TEMP 97.5–99.7; O2SAT 93–97
[2017-10-14] MEDS: INSULIN NovoLIN REGULAR SUPPLEMENTAL SCALE SQ SCH ×5 (01:15→22:18)
[2017-10-14] MEDS: CHLORHEXIDINE GLUCONATE 2 % 1 PACK (2 CLOTHS) TOP SCH (01:16)
[2017-10-14] MEDS: AMPICILLIN-SULBACTAM INJ 3 GM in SODIUM CHLORIDE 0.9% INJ 100 ML IV SCH ×5 (01:16→22:18)
[2017-10-14] MEDS: HEPARIN SODIUM - SQ 10,000 UNITS/ML VIAL SQ SCH ×3 (06:02→22:18)
[2017-10-14] MEDS: MUPIROCIN 2% OINT 1 APPLIC/GM SYR EACH NARE SCH ×2 (09:00→22:26)
[2017-10-14] MEDS: FAMOTIDINE 20 MG TAB PO SCH ×2 (09:00→21:59)
[2017-10-14] MEDS: METOPROLOL TARTRATE 25 MG TAB PO SCH ×2 (09:00→21:59)
[2017-10-14] MEDS: DOCUSATE SODIUM 50 MG/SENNA 8.6 MG TAB PO SCH ×2 (09:00→21:00)
[2017-10-14] MEDS: SODIUM CHLORIDE 0.9% FLUSH 10 ML FLUSH IV FLUSH SCH ×2 (09:00→22:25)
--- NOTE | 2017-10-14 13:57 | HHI.PR ---
Subjective Remarks Fever overnight. Potassium levels need continued treatment. Patient reports swelling at his left pannus by the site of the wound. This may be edema but could also represent early candidiasis (no signs of such at this time). No evidence of purulent discharge. Objective Vital Signs Date Time Temp Pulse Resp B/P (MAP) Pulse Ox O2 Delivery O2 Flow Rate FiO2 10/14/17 12:00 98.6 111 18 145/65 (91) 97 10/14/17 08:00 99.0 119 19 156/75 (102) 95 10/14/17 04:00 98.9 92 17 121/76 (91) 97 10/14/17 00:00 98.7 108 17 127/75 (92) 97 10/13/17 22:07 Room Air 10/13/17 20:17 113 10/13/17 20:00 100.4 119 17 141/88 (105) 97 10/13/17 16:00 100.8 125 20 127/61 (83) 96 I/O 10/13/17 10/13/17 10/13/17 10/14/17 10/14/17 10/14/17 07:00 15:00 23:00 07:00 15:00 23:00 Intake Total 1860 ml 1300 ml 340 ml Output Total 2800 ml 150 ml 1700 ml 725 ml Balance -940 ml -150 ml -400 ml -385 ml Intake Oral 1560 ml 1200 ml 240 ml IV Total 300 ml 100 ml 100 ml Output Urine Total 2800 ml 1650 ml 700 ml Drainage Total 150 ml 50 ml 25 ml # Bowel Movements 1 0 2 Result Diagram: 10/13/17 1455 10/13/17 1455 Objective Remarks GENERAL: NAD, A&Ox3 HEAD: Normocephalic. NECK: Supple, trachea midline. No lymphadenopathy. EYES: No scleral icterus. No injection or drainage. CARDIOVASCULAR: Regular rate and rhythm without murmurs, gallops, or rubs. RESPIRATORY: Breath sounds equal bilaterally. No accessory muscle use. GASTROINTESTINAL: Abdomen soft, non-tender, nondistended. MUSCULOSKELETAL: No cyanosis, or edema. Wound VAC in place at left groin SKIN: Warm and dry. NEURO: No focal neurological deficitis. A/P Problem List: (1) Necrotizing fasciitis ICD Code: M72.6 - Necrotizing fasciitis Status: Acute (2) Sepsis ICD Code: A41.9 - Sepsis, unspecified organism Status: Acute (3) Severe sepsis ICD Code: A41.9 - Sepsis, unspecified organism; R65.20 - Severe sepsis without septic shock Status: Acute Assessment and Plan Assessment and Plan 22 year old male admitted with necrotizing fascitis at left groin, and sepsis. Labs reviewed. Continue management of hypokalemia as needed. Low-grade fever present overnight. Increased metoprolol is benefiting in regards to patient's heart rate. Continue metoprolol. Monitor patient's wound and surrounding induration/edema. Labs ordered for further monitoring. Necrotizing fasciitis Leukocytosis Present at left groin Continue Zosyn Continue vancomycin Continue clindamycin Infectious disease following Continue to monitor cultures Wound VAC placed 10/09/17 Follow CBC Continue as needed pain treatments Rectal tube discontinued 10/11/17 Diabetes mellitus type 2 Follow blood sugars Insulin sliding scale Diabetic diet Continue detemir insulin Hypopotassemia Hypomagnesium Continue to monitor levels Replace as needed DVT prophylaxis Heparin SCDs Kam Cristina MD Oct 14, 2017 13:57
[2017-10-14] MEDS: POTASSIUM CHLORIDE 20 MEQ CONTROLLED RELEASE TAB PO SCH (21:59)
[2017-10-14] MEDS: INSULIN DETEMIR 100 UNITS/ML VIAL SQ SCH (22:17)
[2017-10-14] MEDS: TEMAZEPAM 15 MG CAP PO PRN (22:18)
[2017-10-15] VITALS (7 sets, daily range): BP systolic 110–151; BP diastolic 58–97; PULSE 105–114; RESP 17–20; TEMP 96.3–99.3; O2SAT 95–98
[2017-10-15] MEDS: INSULIN NovoLIN REGULAR SUPPLEMENTAL SCALE SQ SCH ×5 (03:00→20:41)
[2017-10-15] MEDS: CHLORHEXIDINE GLUCONATE 2 % 1 PACK (2 CLOTHS) TOP SCH ×2 (04:00→20:41)
[2017-10-15] MEDS: AMPICILLIN-SULBACTAM INJ 3 GM in SODIUM CHLORIDE 0.9% INJ 100 ML IV SCH ×4 (05:50→22:53)
[2017-10-15] MEDS: HEPARIN SODIUM - SQ 10,000 UNITS/ML VIAL SQ SCH ×3 (05:51→20:41)
[2017-10-15] MEDS: ACETAMINOPHEN/HYDROcodone 325 MG/5 MG TAB PO PRN ×2 (05:56→12:11)
[2017-10-15 08:23] LABS: AUTOMATED NEUTROPHIL # 5.8 TH/MM3 (1.8-7.7); BASOPHIL % 0.4 % (0.0-2.0); EOSINOPHIL # 0.2 TH/MM3 (0-0.4); EOSINOPHIL % 2.6 % (0.0-4.0); HEMATOCRIT 27.2 % (39.0-51.0); LYMPH % 18.6 % (9.0-44.0); LYMPHOCYTE # 1.5 TH/MM3 (1.0-4.8); MEAN CELL VOLUME 79.3 FL (80.0-100.0); MEAN CORPUSCULAR HEMOGLOBIN 25.7 PG (27.0-34.0); MEAN CORPUSCULAR HGB CONC 32.3 % (32.0-36.0); MONO % 7.3 % (0.0-8.0); NEUT % 71.1 % (16.0-70.0); PLATELET COUNT 364 TH/MM3 (150-450); RED BLOOD COUNT 3.43 MIL/MM3 (4.50-5.90); RED CELL DISTRIBUTION WIDTH 14.3 % (11.6-17.2); WHITE BLOOD COUNT 8.2 TH/MM3 (4.0-11.0)
[2017-10-15 08:39] LABS: HEMO FLAGS AUTO DIFF
[2017-10-15 08:59] LABS: ALKALINE PHOSPHATASE 88 U/L (45-117); ALT (GPT) 14 U/L (12-78); ANION GAP 8 MEQ/L (5-15); AST (GOT) 20 U/L (15-37); BICARBONATE 28.4 MEQ/L (21.0-32.0); BLOOD UREA NITROGEN 4 MG/DL (7-18); CHLORIDE 103 MEQ/L (98-107); GLOMERULAR FILTRATION RATE 159 ML/MIN (>89); MAGNESIUM 1.7 MG/DL (1.5-2.5); SODIUM (NA) 139 MEQ/L (136-145); TOTAL BILIRUBIN ADULT 0.3 MG/DL (0.2-1.0)
[2017-10-15] MEDS: DOCUSATE SODIUM 50 MG/SENNA 8.6 MG TAB PO SCH ×2 (09:00→20:40)
[2017-10-15 09:04] LABS: POTASSIUM 2.5 MEQ/L (3.5-5.1)
[2017-10-15] MEDS ORDERED: POTASSIUM CHLORIDE 20 MEQ CONTROLLED RELEASE TAB PO ONE (09:15)
[2017-10-15 09:22] LABS: BANDS 2 % (0-6); BASOPHILS 1 % (0-2); EOSINOPHILS 1 % (0-4); METAMYELOCYTES 3 % (0-1); PLATELET ESTIMATE SMEAR NORMAL (NORMAL); PLATELET MORPHOLOGY NORMAL (NORMAL); POLYS (SEG NEUTROPHILS) 68 % (16-70); SCAN/DIFF FINAL DIFF MANUAL; WBC DIFF SAMPLE 100
[2017-10-15] MEDS ORDERED: POTASSIUM CHLOR 20 MEQ PREMIX 100 ML IV SCH (10:00)
[2017-10-15] MEDS: POTASSIUM CHLORIDE 20 MEQ CONTROLLED RELEASE TAB PO SCH ×2 (10:06→20:39)
[2017-10-15] MEDS: METOPROLOL TARTRATE 25 MG TAB PO SCH ×2 (10:07→20:39)
[2017-10-15] MEDS: FAMOTIDINE 20 MG TAB PO SCH ×2 (10:07→20:40)
[2017-10-15] MEDS: MUPIROCIN 2% OINT 1 APPLIC/GM SYR EACH NARE SCH ×2 (10:28→20:39)
[2017-10-15] MEDS: SODIUM CHLOR 0.9% 1000 ML INJ 1,000 ML IV SCH ×2 (11:00→20:41)
[2017-10-15] MEDS: MAGNESIUM SULFATE 1 GM PREMIX 100 ML IV SCH ×4 (11:07→14:50)
--- NOTE | 2017-10-15 11:56 | HHI.PR ---
Subjective Remarks Dressing change planned for today. Improvements today include cessation of fevers for last 24 hours. He also has a decrease in his white blood cell count and has been within normal limits regarding what blood cell count for 2 days. Hypokalemia remains a problem. Replacements provided again today. Supplement initiated yesterday. Objective Vital Signs Date Time Temp Pulse Resp B/P (MAP) Pulse Ox O2 Delivery O2 Flow Rate FiO2 10/15/17 09:13 96 21 10/15/17 08:00 99.3 110 17 110/59 (76) 95 10/15/17 04:00 98.2 109 20 121/61 (81) 98 10/15/17 00:00 98.1 114 20 131/58 (82) 97 10/14/17 23:27 113 10/14/17 21:58 93 Nasal Cannula 2.00 10/14/17 20:00 97.5 113 20 128/70 (89) 93 10/14/17 19:38 113 10/14/17 19:33 95 Nasal Cannula 2.00 10/14/17 16:37 Room Air 10/14/17 16:00 99.7 116 18 157/81 (106) 95 10/14/17 14:55 Nasal Cannula 3.00 10/14/17 12:00 98.6 111 18 145/65 (91) 97 I/O 10/14/17 10/14/17 10/14/17 10/15/17 10/15/17 10/15/17 07:00 15:00 23:00 07:00 15:00 23:00 Intake Total 340 ml 1700 ml 200 ml Output Total 725 ml 2565 ml 50 ml Balance -385 ml -865 ml 150 ml Intake Oral 240 ml 1500 ml IV Total 100 ml 200 ml 200 ml Output Urine Total 700 ml 2500 ml Drainage Total 25 ml 65 ml 50 ml # Bowel Movements 2 2 Result Diagram: 10/15/1744 10/15/17 0644 Objective Remarks GENERAL: NAD, A&Ox3 HEAD: Normocephalic. NECK: Supple, trachea midline. No lymphadenopathy. EYES: No scleral icterus. No injection or drainage. CARDIOVASCULAR: Regular rate and rhythm without murmurs, gallops, or rubs. RESPIRATORY: Breath sounds equal bilaterally. No accessory muscle use. GASTROINTESTINAL: Abdomen soft, non-tender, nondistended. MUSCULOSKELETAL: No cyanosis, or edema. Wound VAC in place at left groin SKIN: Warm and dry. NEURO: No focal neurological deficitis. A/P Problem List: (1) Necrotizing fasciitis ICD Code: M72.6 - Necrotizing fasciitis Status: Acute (2) Sepsis ICD Code: A41.9 - Sepsis, unspecified organism Status: Acute (3) Severe sepsis ICD Code: A41.9 - Sepsis, unspecified organism; R65.20 - Severe sepsis without septic shock Status: Acute Assessment and Plan Assessment and Plan 22 year old male admitted with necrotizing fascitis at left groin, and sepsis. Labs reviewed. Continue management of hypokalemia as needed. Potassium supplement initiated. Fevers have stopped for now. Monitor for recurrence of fever. Discharge planning based on stability of potassium level, continue to monitor potassium. Labs ordered for further monitoring. Necrotizing fasciitis Leukocytosis Present at left groin Continue Zosyn Continue vancomycin Continue clindamycin Infectious disease following Continue to monitor cultures Wound VAC placed 10/09/17 Follow CBC Continue as needed pain treatments Rectal tube discontinued 10/11/17 Diabetes mellitus type 2 Follow blood sugars Insulin sliding scale Diabetic diet Continue detemir insulin Hypopotassemia Hypomagnesium Continue to monitor levels Replace as needed DVT prophylaxis Heparin SCDs Kam Cristina MD Oct 15, 2017 11:56
[2017-10-15] MEDS: HYDROmorphone HCL PF 1 MG/ML VIAL IV SCH (12:00)
[2017-10-15] MEDS: MORPHINE SULFATE 4 MG/ML INJ IV PUSH PRN (12:11)
--- NOTE | 2017-10-15 13:52 | HHI.IDPN ---
Subjective Subjective Remarks Patient is a 22-year-old morbidly obese male, presented to the hospital complaining of draining wounds on his left lower abdominal wall. He has developed increasing pain and swelling and the drainage was foul smelling. There is no mention of any fever or chills. He denies any prior diagnosis of diabetes. He has not been sexually active in over a year. He does shave the inguinal region, mons pubis and scrotum. He states that he has had these numerous times in the past.There's been no nausea or vomiting. Imaging study showed air in the subcutaneous tissue. Gen. surgery was consult did and the patient underwent debridement of a necrotizing soft tissue infection in the left lower abdominal wall. Culture grew some skin ryan and anaerobic gram- positive cocci. His white count was initially elevated and that has improved. Patient has not really required any pressors. Currently he complains of pain on the left lower quadrant for he has to open wound. Wound VAC was placed today. He has some low-grade temps. Urgently on vancomycin and clindamycin. Infectious disease consultation has been requested to evaluate the patient. Notes reviewed Temps better WBC down to normal To have wound vac change today No rash No diarrhea NO N/V Antibiotics Current Medications Unasyn Medications (Trade) Dose Ordered Sig/Josh Route Start Time Stop Time Status Last Admin (NS Flush) 2 ml UNSCH PRN IV FLUSH 10/06/17 22:45 (NS Flush) 2 ml BID IV FLUSH 10/07/17 09:00 10/14/17 22:25 (Tylenol) 650 mg Q6H PRN PO 10/06/17 22:45 10/13/17 04:09 (Morphine Inj) 2 mg Q2H PRN IV PUSH 10/06/17 22:45 10/15/17 12:11 (Zofran Inj) 4 mg Q6H PRN IV PUSH 10/06/17 22:45 (Restoril) 15 mg HS PRN PO 10/06/17 22:45 10/14/17 22:18 (Heparin Inj) 5,000 units Q8HR SQ 10/06/17 22:45 10/15/17 05:51 Miscellaneous Information 1 Q361D XX 10/06/17 22:45 (Chlorhexidine 2% Cloth) Taper DAILY@04 TOP 10/07/17 04:00 10/03/18 03:59 (Chlorhexidine 2% Cloth) 3 pack UNSCH PRN TOP 10/06/17 22:45 (Geraldine-Colace) 1 tab BID PO 10/07/17 09:00 10/11/17 09:10 (Milk Of Magnesia Liq) 30 ml Q12H PRN PO 10/06/17 22:45 (Senokot) 17.2 mg Q12H PRN PO 10/06/17 22:45 (Dulcolax Supp) 10 mg DAILY PRN RECTAL 10/06/17 22:45 (Lactulose Liq) 30 ml DAILY PRN PO 10/06/17 22:45 (Albuterol Neb) 2.5 mg Q2HR NEB PRN NEB 10/08/17 12:15 10/13/17 06:20 (D50w (Vial) Inj) 50 ml UNSCH PRN IV PUSH 10/08/17 12:30 (Glucagon Inj) 1 mg STAT PRN IM 10/08/17 12:30 (NovoLIN R SUPPLEMENTAL SCALE) 1 [id number] SLIDE SCALE SQ 10/08/17 17:00 10/14/17 22:18 (Bactroban Nasal 2% Oint) Taper BID EACH NARE 10/08/17 21:00 10/04/18 20:59 10/15/17 10:28 ([place] 5-325 Mg) 1 tab Q4H PRN PO 10/08/17 12:45 10/15/17 12:11 (Trandate Inj) 10 mg Q4H PRN IV PUSH 10/09/17 23:15 10/10/17 05:18 (Pepcid) 20 mg BID PO 10/10/17 21:00 10/15/17 10:07 (Levemir Inj) 20 units HS SQ 10/10/17 21:00 10/14/17 22:17 Ampicillin Sodium/ Sulbactam Sodium 3 gm/Sodium Chloride 100 ml @ 200 mls/hr Q6H IV 10/10/17 18:00 10/15/17 11:07 (Pill Splitter) 1 ea UNSCH PRN OTHER 10/12/17 11:00 (Lopressor) 25 mg Q12HR PO 10/13/17 09:00 10/15/17 10:07 (KCl) 20 meq Q12HR PO 10/14/17 21:00 10/15/17 10:06 Magnesium Sulfate/ Dextrose 100 ml @ 100 mls/hr Q1H IV 10/15/17 10:00 10/15/17 11:23 Sodium Chloride 1,000 ml @ 50 mls/hr Q20H IV 10/15/17 11:00 (Dilaudid Pf Inj) 1 mg MoWeFr IV 10/15/17 12:00 Lines PIV Past Medical History None Allergies: Coded Allergies: No Known Allergies (Unverified , 10/06/17) Objective . Vital Signs Date Time Temp Pulse Resp B/P (MAP) Pulse Ox O2 Delivery O2 Flow Rate FiO2 10/15/17 12:00 99.1 105 17 151/97 (115) 96 10/15/17 09:13 96 21 10/15/17 08:00 99.3 110 17 110/59 (76) 95 10/15/17 04:00 98.2 109 20 121/61 (81) 98 10/15/17 00:00 98.1 114 20 131/58 (82) 97 10/14/17 23:27 113 10/14/17 21:58 93 Nasal Cannula 2.00 10/14/17 20:00 97.5 113 20 128/70 (89) 93 10/14/17 19:38 113 10/14/17 19:33 95 Nasal Cannula 2.00 10/14/17 16:37 Room Air 10/14/17 16:00 99.7 116 18 157/81 (106) 95 10/14/17 14:55 Nasal Cannula 3.00 . Laboratory Tests Test 10/13/17 14:55 10/15/17 06:44 White Blood Count 8.9 TH/MM3 8.2 TH/MM3 Red Blood Count 3.66 MIL/MM3 3.43 MIL/MM3 Hemoglobin 9.5 GM/DL 8.8 GM/DL Hematocrit 28.7 % 27.2 % Mean Corpuscular Volume 78.5 FL 79.3 FL Mean Corpuscular Hemoglobin 25.9 PG 25.7 PG Mean Corpuscular Hemoglobin Concent 33.1 % 32.3 % Red Cell Distribution Width 14.6 % 14.3 % Platelet Count 358 TH/MM3 364 TH/MM3 Mean Platelet Volume 8.2 FL 8.1 FL Neutrophils (%) (Auto) 77.7 % 71.1 % Lymphocytes (%) (Auto) 12.5 % 18.6 % Monocytes (%) (Auto) 7.9 % 7.3 % Eosinophils (%) (Auto) 1.4 % 2.6 % Basophils (%) (Auto) 0.5 % 0.4 % Neutrophils # (Auto) 6.9 TH/MM3 5.8 TH/MM3 Lymphocytes # (Auto) 1.1 TH/MM3 1.5 TH/MM3 Monocytes # (Auto) 0.7 TH/MM3 0.6 TH/MM3 Eosinophils # (Auto) 0.1 TH/MM3 0.2 TH/MM3 Basophils # (Auto) 0.0 TH/MM3 0.0 TH/MM3 CBC Comment AUTO DIFF AUTO DIFF Differential Comment AUTO DIFF CONFIRMED FINAL DIFF MANUAL Platelet Estimate NORMAL NORMAL Platelet Morphology Comment ENLARGED NORMAL Differential Total Cells Counted 100 Neutrophils % (Manual) 68 % Band Neutrophils % 2 % Lymphocytes % 18 % Monocytes % 7 % Eosinophils % 1 % Basophils % 1 % Neutrophils # (Manual) 6.0 TH/MM3 Metamyelocytes 3 % Laboratory Tests Test 10/13/17 14:55 10/15/17 06:44 Blood Urea Nitrogen 3 MG/DL 4 MG/DL Creatinine 0.77 MG/DL 0.75 MG/DL Random Glucose 243 MG/DL 151 MG/DL Total Protein 7.6 GM/DL 7.7 GM/DL Albumin 1.4 GM/DL 1.5 GM/DL Calcium Level 7.5 MG/DL 7.8 MG/DL Phosphorus Level 3.4 MG/DL 2.8 MG/DL Magnesium Level 1.5 MG/DL 1.7 MG/DL Alkaline Phosphatase 96 U/L 88 U/L Aspartate Amino Transf (AST/SGOT) 23 U/L 20 U/L Alanine Aminotransferase (ALT/SGPT) 21 U/L 14 U/L Total Bilirubin 0.2 MG/DL 0.3 MG/DL Sodium Level 137 MEQ/L 139 MEQ/L Potassium Level 2.7 MEQ/L 2.5 MEQ/L Chloride Level 101 MEQ/L 103 MEQ/L Carbon Dioxide Level 30.1 MEQ/L 28.4 MEQ/L Anion Gap 6 MEQ/L 8 MEQ/L Estimat Glomerular Filtration Rate 155 ML/MIN 159 ML/MIN Imaging Last Impressions Chest X-Ray 10/07/17 0000 Signed Impressions: Service Date/Time: Saturday, October 07, 2017 05:05 - CONCLUSION: No acute disease. There is no evidence of pneumonia. Yang Castillo MD Abdomen/Pelvis CT 10/06/172125 Signed Impressions: Service Date/Time: Friday, October 06, 2017 22:23 - CONCLUSION: 1. Abnormal subcutaneous tissues in the left lower quadrant with a large area of discharged gas, surrounding induration of the fat and extension into the left inguinal region. 2. Absent right kidney. Issac Romano MD Physical Exam GENERAL: Patient is an obese, well-developed patient, awake and alert, NAD SKIN: Warm and dry. Has hyperpigmented scars on his anterior abdominal wall that looks like prior abscesses which he said are due to his pants HEAD: Atraumatic. Normocephalic. No temporal wasting, or tenderness. EYES: [place] conjunctiva. No petechia or hemorrhage. Pupils equal, round and reactive to light. Extraocular movements full and intact. No scleral icterus. EARS, NOSE AND THROAT: Nose without bleeding or purulent nasal discharge. No sinus tenderness. Mucous membranes pink and moist. No oral lesions noted. NECK: Trachea midline. Supple and not tender, no meningeal signs CARDIOVASCULAR: Regular rate and rhythm. No murmurs, rubs or gallops heard RESPIRATORY: Clear to auscultation. Breath sounds equal bilaterally. No rales , wheezing or rhonchi ABDOMEN: Soft, obese, nondistended. Bowel sounds present and normoactive. Wound vac in place LLQ, still with induration around the open wound, but erythema looks less, tender on palpation EXTREMITIES: No clubbing, cyanosis, or edema. No calf tenderness. Well perfused and warm. NEUROLOGICAL: Awake and alert. Cranial nerves grossly intact. Motor grossly within normal limits. PSYCHIATRIC: Normal affect, calm and cooperative. LINE: No evidence of infection Assessment & Plan Remarks IMPRESSION Necrotizing soft tissue infection L lower abdominal wall, patient with morbid obesity and new DM - S/P debridement, has wound vac in place Morbid obesity Low grade temps, better Leukocytosis, resolved New DM RECOMMENDATION Continue IV Unasyn Control sugars Follow temps Monitor progress Wound care per surgery Albania Benson MD Oct 15, 2017 13:52
--- NOTE | 2017-10-15 14:30 | HHI.PR ---
Subjective Subjective Notes Resting in bed No issues REX Weinerena at bedside to change Wound Vac Objective Vitals/I&O Vital Signs Date Time Temp Pulse Resp B/P (MAP) Pulse Ox O2 Delivery O2 Flow Rate FiO2 10/15/17 12:00 99.1 105 17 151/97 (115) 96 10/15/17 09:13 21 10/14/17 21:58 Nasal Cannula 2.00 Labs Laboratory Tests Test 10/15/17 06:44 White Blood Count 8.2 Red Blood Count 3.43 Hemoglobin 8.8 Hematocrit 27.2 Mean Corpuscular Volume 79.3 Mean Corpuscular Hemoglobin 25.7 Mean Corpuscular Hemoglobin Concent 32.3 Red Cell Distribution Width 14.3 Platelet Count 364 Mean Platelet Volume 8.1 Neutrophils (%) (Auto) 71.1 Lymphocytes (%) (Auto) 18.6 Monocytes (%) (Auto) 7.3 Eosinophils (%) (Auto) 2.6 Basophils (%) (Auto) 0.4 Neutrophils # (Auto) 5.8 Lymphocytes # (Auto) 1.5 Monocytes # (Auto) 0.6 Eosinophils # (Auto) 0.2 Basophils # (Auto) 0.0 CBC Comment AUTO DIFF Differential Total Cells Counted 100 Neutrophils % (Manual) 68 Band Neutrophils % 2 Lymphocytes % 18 Monocytes % 7 Eosinophils % 1 Basophils % 1 Neutrophils # (Manual) 6.0 Metamyelocytes 3 Differential Comment FINAL DIFF MANUAL Platelet Estimate NORMAL Platelet Morphology Comment NORMAL Blood Urea Nitrogen 4 Creatinine 0.75 Random Glucose 151 Total Protein 7.7 Albumin 1.5 Calcium Level 7.8 Phosphorus Level 2.8 Magnesium Level 1.7 Alkaline Phosphatase 88 Aspartate Amino Transf (AST/SGOT) 20 Alanine Aminotransferase (ALT/SGPT) 14 Total Bilirubin 0.3 Sodium Level 139 Potassium Level 2.5 Chloride Level 103 Carbon Dioxide Level 28.4 Anion Gap 8 Estimat Glomerular Filtration Rate 159 Date/Time Source Procedure Growth Status 10/06/17 21:45 Blood Peripheral Aerobic Blood Culture - Final NO GROWTH IN 5 DAYS Complete 10/06/17 21:45 Blood Peripheral Anaerobic Blood Culture - Final NO GROWTH IN 5 DAYS Complete 10/07/17 02:00 Tissue Abdomen Gram Stain - Final Complete 10/07/17 02:00 Wound Culture - Final Anaerobic Gram Positive Cocci Complete Cardiovascular: Regular Lungs: Clear Abdomen: Non-distended, Other (see below ) Extremities: No edema Narrative Exam Large LEFT lower quadrant s/p I&D--- Wound vac removed--- far less exudate in wound bed; beefy red areas; thoroughly cleaned and Veraflow Wound Vac applied A/P Assessment and Plan 22 year old male s/p I&D of LEFT lower quadrant abdomen abscess -Diabetic diet -Plan for Wound Vac change [facility] ---done today ---Veraflow Wound Vac applied -ID following for antibiotics -Discussed with REX Perales and REX Huang with Wound Care who were present for dressing change Ryanne Lepe Oct 15, 2017 14:30
--- NOTE | 2017-10-15 14:41 | PD.WCN.NOT ---
Neg Pressure Wound Therapy Wound Location Wound Location: L lower abdomen Wound Description Length: 4.2cm Width: 27cm Depth: 7.2cm Wound bed appearance: Wound bed presents with clean ~70% red granulation tissue, ~10% muscle and ~ 20 % yellow exudate. Wound is vascular draining minimal amount of sanguinous drainage without odor Periwound appearance: Unremarkable Settings Suction: 125 mmHg, Continuous, Intermittent Intensity: Low Other Information: Bridged, Windowpaned, Mushroomed Number of pieces: other (see note) Additonal Information Patient seen on for wound VAc Veraflow dressing change. Removed dressing with Ryanne ALLEN, Jose Luis CORTÉS and sba underwriter.Cleansed wound to L lower abdomen with wound cleanser and pat dry.Applied skin prep to periwound and to L anterior thigh. Then applied Hudson's seal to lower abdominal crease and groin crease to seal dressing.VAC drape was bridged from wound margin at 6 o 'clock to L anterior thigh.Applied two pieces of Veraflow cleanse lopez granufoam with holes into wound bed at the base. Applied 4 pieces of solid lopez granufoam on top to fill in space. Covered granufoam with VAC drape. Cut hole in VAC drape to expose granufoam and bridged one strip of granufoam from wound bed to L anterior thigh over VAC drape. Applied Sensi trac pad with attached mushroom cap of granufoam to bridged foam on L anterior thigh. Covered all exposed VAC foam with drape to seal. VAc suction 125 mm/hg low for draw down seal check for two minutes, before instilling 44 ml off normal saline using fill assist. Normal saline was left in place for 10 minutes before suctioning at 125 mmm/hg low intermittent suction with low leak rate. Patient tolerated fairly with complaints of pain with granufoam placement and cleaning. Patient was premedicated for pain prior to VAC dressing application.Jose Luis CORTÉS and Ryanne ALLEN in room for VAC dressing removal and wound assessment.Jose Luis assisted with VAC dressing change.VAC settings are as follows : Draw time is 3.5 hours. Instill volume is 38ml, Soak time is 10 minutes.Suction is low and intermittent suction. Reina Kendrick Oct 15, 2017 14:41
--- NOTE | 2017-10-15 20:16 | HHI.PR ---
Subjective Remarks NOT SEEN Objective Vitals Vital Signs Date Time Temp Pulse Resp B/P (MAP) Pulse Ox O2 Delivery O2 Flow Rate FiO2 10/15/17 16:00 96.9 107 17 135/80 (98) 97 10/15/17 12:00 99.1 105 17 151/97 (115) 96 10/15/17 09:13 96 21 10/15/17 08:00 99.3 110 17 110/59 (76) 95 10/15/17 04:00 98.2 109 20 121/61 (81) 98 10/15/17 00:00 98.1 114 20 131/58 (82) 97 10/14/17 23:27 113 10/14/17 21:58 93 Nasal Cannula 2.00 I/O 10/14/17 10/14/17 10/14/17 10/15/17 10/15/17 10/15/17 07:00 15:00 23:00 07:00 15:00 23:00 Intake Total 340 ml 1700 ml 200 ml 2236 ml Output Total 725 ml 2565 ml 50 ml 900 ml Balance -385 ml -865 ml 150 ml 1336 ml Intake Oral 240 ml 1500 ml 2236 ml IV Total 100 ml 200 ml 200 ml Output Urine Total 700 ml 2500 ml 900 ml Drainage Total 25 ml 65 ml 50 ml # Bowel Movements 2 2 2 Result Diagram: 10/15/17 0644 10/15/17 0644 Imaging Last Impressions Chest X-Ray 10/07/17 0000 Signed Impressions: Service Date/Time: Saturday, October 07, 2017 05:05 - CONCLUSION: No acute disease. There is no evidence of pneumonia. Yang Castillo MD Abdomen/Pelvis CT 10/06/172125 Signed Impressions: Service Date/Time: Friday, October 06, 2017 22:23 - CONCLUSION: 1. Abnormal subcutaneous tissues in the left lower quadrant with a large area of discharged gas, surrounding induration of the fat and extension into the left inguinal region. 2. Absent right kidney. Issac Romano MD Objective Remarks GENERAL: NAD, A&Ox3 HEAD: Normocephalic. NECK: Supple, trachea midline. No lymphadenopathy. EYES: No scleral icterus. No injection or drainage. CARDIOVASCULAR: Regular rate and rhythm without murmurs, gallops, or rubs. RESPIRATORY: Breath sounds equal bilaterally. No accessory muscle use. GASTROINTESTINAL: Abdomen soft, non-tender, nondistended. MUSCULOSKELETAL: No cyanosis, or edema. Wound VAC in place at left groin SKIN: Warm and dry. NEURO: No focal neurological deficits. Procedures Left inguinal wound vac A/P Problem List: (1) Necrotizing fasciitis ICD Code: M72.6 - Necrotizing fasciitis Status: Acute Assessment and Plan 22 year old male admitted with necrotizing fascitis at left groin, and sepsis. Labs reviewed. Continue management of hypokalemia as needed. Potassium supplement initiated. Fevers have stopped for now. Monitor for recurrence of fever. Discharge planning based on stability of potassium level, continue to monitor potassium. Labs ordered for further monitoring. Necrotizing fasciitis Leukocytosis Present at left groin Continue Zosyn Continue vancomycin Continue clindamycin Infectious disease following Continue to monitor cultures Wound VAC placed 10/09/17 Follow CBC Continue as needed pain treatments Rectal tube discontinued 10/11/17 Diabetes mellitus type 2 Follow blood sugars Insulin sliding scale Diabetic diet Continue detemir insulin Hypopotassemia Hypomagnesium Continue to monitor levels Replace as needed DVT prophylaxis Heparin JERSEYs Chuck Bravo MD Oct 15, 2017 20:16
[2017-10-15] MEDS: INSULIN DETEMIR 100 UNITS/ML VIAL SQ SCH (20:40)
[2017-10-15] MEDS: TEMAZEPAM 15 MG CAP PO PRN (20:54)
[2017-10-15] MEDS: SODIUM CHLORIDE 0.9% FLUSH 10 ML FLUSH IV FLUSH SCH (21:00)
[2017-10-16] VITALS (9 sets, daily range): BP systolic 119–189; BP diastolic 68–90; PULSE 102–113; RESP 16–19; TEMP 96–100; O2SAT 92–98
[2017-10-16] MEDS: INSULIN NovoLIN REGULAR SUPPLEMENTAL SCALE SQ SCH ×5 (02:44→21:38)
[2017-10-16] MEDS: HEPARIN SODIUM - SQ 10,000 UNITS/ML VIAL SQ SCH ×3 (04:14→21:36)
[2017-10-16] MEDS: AMPICILLIN-SULBACTAM INJ 3 GM in SODIUM CHLORIDE 0.9% INJ 100 ML IV SCH ×4 (04:14→22:47)
[2017-10-16] MEDS: DOCUSATE SODIUM 50 MG/SENNA 8.6 MG TAB PO SCH (09:00)
[2017-10-16 09:07] LABS: AUTOMATED NEUTROPHIL # 4.8 TH/MM3 (1.8-7.7); BASOPHIL % 0.6 % (0.0-2.0); EOSINOPHIL # 0.2 TH/MM3 (0-0.4); EOSINOPHIL % 2.4 % (0.0-4.0); HEMATOCRIT 26.7 % (39.0-51.0); HEMO FLAGS DIFF FINAL; LYMPHOCYTE # 1.5 TH/MM3 (1.0-4.8); MEAN CELL VOLUME 78.6 FL (80.0-100.0); MEAN CORPUSCULAR HEMOGLOBIN 25.5 PG (27.0-34.0); MEAN CORPUSCULAR HGB CONC 32.5 % (32.0-36.0); MONO % 5.4 % (0.0-8.0); NEUT % 69.6 % (16.0-70.0); PLATELET COUNT 306 TH/MM3 (150-450); RED CELL DISTRIBUTION WIDTH 14.2 % (11.6-17.2); WHITE BLOOD COUNT 6.8 TH/MM3 (4.0-11.0)
[2017-10-16 09:46] LABS: ANION GAP 9 MEQ/L (5-15); AST (GOT) 14 U/L (15-37); BLOOD UREA NITROGEN 3 MG/DL (7-18); CHLORIDE 104 MEQ/L (98-107); GLOMERULAR FILTRATION RATE 202 ML/MIN (>89); MAGNESIUM 1.8 MG/DL (1.5-2.5); POTASSIUM 3.3 MEQ/L (3.5-5.1); SODIUM (NA) 140 MEQ/L (136-145)
[2017-10-16 09:47] LABS: ALT (GPT) 11 U/L (12-78)
[2017-10-16 09:49] LABS: ALKALINE PHOSPHATASE 80 U/L (45-117); TOTAL BILIRUBIN ADULT 0.2 MG/DL (0.2-1.0)
[2017-10-16] MEDS: MUPIROCIN 2% OINT 1 APPLIC/GM SYR EACH NARE SCH ×3 (10:39→21:36)
[2017-10-16] MEDS: FAMOTIDINE 20 MG TAB PO SCH ×2 (10:40→21:36)
[2017-10-16] MEDS: METOPROLOL TARTRATE 25 MG TAB PO SCH ×2 (10:40→21:37)
[2017-10-16] MEDS: ACETAMINOPHEN 325 MG TAB PO PRN ×2 (12:32→18:37)
[2017-10-16] MEDS ORDERED: POTASSIUM CHLORIDE 20 MEQ CONTROLLED RELEASE TAB PO ONE (14:45)
--- NOTE | 2017-10-16 15:16 | HHI.PR ---
Subjective Remarks Follow-up necrotizing fasciitis and diabetes mellitus. Remains hyperglycemic. Improving loose stools denies nausea and abdominal pain. Objective Vitals Vital Signs Date Time Temp Pulse Resp B/P (MAP) Pulse Ox O2 Delivery O2 Flow Rate FiO2 10/16/17 12:28 100.0 10/16/17 12:00 99.6 109 18 189/84 (119) 95 10/16/17 08:00 99.3 111 17 136/77 (96) 96 10/16/17 04:08 113 10/16/17 04:00 96.0 110 16 133/72 (92) 98 10/16/17 00:00 96.1 111 17 119/68 (85) 92 10/15/17 20:17 Room Air 10/15/17 20:00 96.3 113 17 126/67 (86) 96 10/15/17 16:00 96.9 107 17 135/80 (98) 97 I/O 10/15/17 10/15/17 10/15/17 10/16/17 10/16/17 10/16/17 07:00 15:00 23:00 07:00 15:00 23:00 Intake Total 200 ml 2236 ml 340 ml Output Total 50 ml 1400 ml 920 ml 190 ml Balance 150 ml 836 ml -580 ml -190 ml Intake Oral 2236 ml 240 ml IV Total 200 ml 100 ml Output Urine Total 1400 ml 720 ml Drainage Total 50 ml 200 ml 190 ml # Voids 2 # Bowel Movements 2 4 Result Diagram: 10/16/17 0811 10/16/17 0811 Imaging Last Impressions Chest X-Ray 10/07/17 0000 Signed Impressions: Service Date/Time: Saturday, October 07, 2017 05:05 - CONCLUSION: No acute disease. There is no evidence of pneumonia. Yang Castillo MD Abdomen/Pelvis CT 10/06/172125 Signed Impressions: Service Date/Time: Friday, October 06, 2017 22:23 - CONCLUSION: 1. Abnormal subcutaneous tissues in the left lower quadrant with a large area of discharged gas, surrounding induration of the fat and extension into the left inguinal region. 2. Absent right kidney. Issac Romano MD Objective Remarks GENERAL: NAD, A&Ox3 HEAD: Normocephalic. NECK: Supple, trachea midline. No lymphadenopathy. EYES: No scleral icterus. No injection or drainage. CARDIOVASCULAR: Regular rate and rhythm without murmurs, gallops, or rubs. RESPIRATORY: Breath sounds equal bilaterally. No accessory muscle use. GASTROINTESTINAL: Abdomen soft, non-tender, nondistended. MUSCULOSKELETAL: No cyanosis, or edema. Wound VAC in place at left groin SKIN: Warm and dry. NEURO: No focal neurological deficits. Procedures Left inguinal wound vac A/P Problem List: (1) Necrotizing fasciitis ICD Code: M72.6 - Necrotizing fasciitis Status: Acute Assessment and Plan 22 year old male admitted with necrotizing fascitis at left groin, and sepsis. Labs reviewed. Continue management of hypokalemia as needed. Potassium supplement initiated. Fevers have stopped for now. Monitor for recurrence of fever. Discharge planning based on stability of potassium level, continue to monitor potassium. Labs ordered for further monitoring. Necrotizing fasciitis Leukocytosis. Improved Present at left groin Continue Unasyn Infectious disease following Continue to monitor cultures Wound VAC per general surgery Continue as needed pain treatments Rectal tube discontinued 10/11/17 Diabetes mellitus type 2. Still uncontrolled Follow blood sugars Insulin sliding scale Diabetic diet Increase Levemir to 26 units at bedtime considered twice a day dosing or add preprandial insulin Hypopotassemia Hypomagnesium Likely related to loose stool. Continue to monitor levels Replace as needed Diarrhea on antibiotics. Check C. difficile. Start Lactinex. Monitor DVT prophylaxis Heparin SCDs Discharge Planning Not ready for discharge Chuck Bravo MD Oct 16, 2017 15:16
[2017-10-16] MEDS: SODIUM CHLORIDE 0.9% FLUSH 10 ML FLUSH IV FLUSH SCH ×2 (15:38→21:37)
[2017-10-16] MEDS ORDERED: ENALAPRILAT 1.25 MG/ML VIAL IV PUSH PRN (16:00)
[2017-10-16] MEDS ORDERED: cloNIDine HCL 0.1 MG TAB PO PRN (16:00)
[2017-10-16] MEDS: LACTOBACILLUS ACIDOPHILUS TAB PO SCH (18:36)
[2017-10-16] MEDS: POTASSIUM CHLORIDE 20 MEQ CONTROLLED RELEASE TAB PO SCH (21:36)
[2017-10-16] MEDS: INSULIN DETEMIR 100 UNITS/ML VIAL SQ SCH (21:37)
[2017-10-16] MEDS: TEMAZEPAM 15 MG CAP PO PRN (22:47)
[2017-10-17] VITALS: BP 157/79; PULSE 100; PULSE 110; RESP 17; TEMP 97.4; O2SAT 94
[2017-10-17] MEDS: INSULIN NovoLIN REGULAR SUPPLEMENTAL SCALE SQ SCH ×5 (03:00→23:08)
[2017-10-17] MEDS: CHLORHEXIDINE GLUCONATE 2 % 1 PACK (2 CLOTHS) TOP SCH (03:54)
[2017-10-17 04:00] VITALS: BP 151/90; PULSE 104; RESP 17; TEMP 96.7; O2SAT 95
[2017-10-17] MEDS: AMPICILLIN-SULBACTAM INJ 3 GM in SODIUM CHLORIDE 0.9% INJ 100 ML IV SCH ×4 (05:33→23:07)
[2017-10-17] MEDS: HEPARIN SODIUM - SQ 10,000 UNITS/ML VIAL SQ SCH ×3 (05:34→23:08)
[2017-10-17 08:00] VITALS: BP 138/82; PULSE 114; RESP 18; TEMP 98.9; O2SAT 96
[2017-10-17] MEDS: MORPHINE SULFATE 4 MG/ML INJ IV PUSH PRN (08:52)
[2017-10-17] MEDS: MUPIROCIN 2% OINT 1 APPLIC/GM SYR EACH NARE SCH ×2 (09:00→21:00)
[2017-10-17] MEDS: SODIUM CHLORIDE 0.9% FLUSH 10 ML FLUSH IV FLUSH SCH ×2 (09:00→21:18)
[2017-10-17] MEDS: ACETAMINOPHEN/HYDROcodone 325 MG/5 MG TAB PO PRN ×3 (09:05→17:39)
[2017-10-17] MEDS: LACTOBACILLUS ACIDOPHILUS TAB PO SCH ×3 (09:51→17:23)
[2017-10-17] MEDS: FAMOTIDINE 20 MG TAB PO SCH ×2 (09:51→21:00)
[2017-10-17] MEDS: POTASSIUM CHLORIDE 20 MEQ CONTROLLED RELEASE TAB PO SCH ×2 (09:52→21:19)
[2017-10-17] MEDS: METOPROLOL TARTRATE 25 MG TAB PO SCH ×2 (09:52→21:19)
[2017-10-17] MEDS: HYDROmorphone HCL PF 1 MG/ML VIAL IV SCH (09:53)
--- NOTE | 2017-10-17 10:22 | HHI.PR ---
Subjective Subjective Notes Resting in bed Father at bedside Objective Vitals/I&O Vital Signs Date Time Temp Pulse Resp B/P (MAP) Pulse Ox O2 Delivery O2 Flow Rate FiO2 10/17/17 08:05 Room Air 10/17/17 08:00 98.9 114 18 138/82 (100) 96 10/15/17 09:13 21 10/14/17 21:58 2.00 Labs Date/Time Source Procedure Growth Status 10/06/17 21:45 Blood Peripheral Aerobic Blood Culture - Final NO GROWTH IN 5 DAYS Complete 10/06/17 21:45 Blood Peripheral Anaerobic Blood Culture - Final NO GROWTH IN 5 DAYS Complete 10/07/17 02:00 Tissue Abdomen Gram Stain - Final Complete 10/07/17 02:00 Wound Culture - Final Anaerobic Gram Positive Cocci Complete Cardiovascular: Regular Lungs: Clear Abdomen: Non-distended, Non-tender, Other (see below about wound ) Extremities: No edema Narrative Exam Large LEFT lower quadrant s/p I&D--- Wound vac removed--- far less exudate in wound bed; beefy red areas; thoroughly cleaned and Veraflow Wound Vac applied A/P Assessment and Plan 22 year old male s/p I&D of LEFT lower quadrant abdomen abscess -Diabetic diet -Plan for Wound Vac change [facility] ---done today ---Veraflow Wound Vac re-applied today-- plan to place regular black sponge on Sunday -ID following for antibiotics -Discussed with REX Huang with Wound Care who was present for dressing change Ryanne Lepe Oct 17, 2017 10:22
--- NOTE | 2017-10-17 10:23 | PD.WCN.NOT ---
Neg Pressure Wound Therapy Wound Location Wound Location: L lower Abdomen Wound Description Length: 4.5cm Width: 25cm Depth: 4.5cm Wound bed appearance: Wound bed presents with clean ~70% red granulation tissue,~ 20% yellow exudate, ~10% yellow slough. Wound is vascular draining minimal amount of sanguinous drainage without odor Periwound appearance: Unremarkable Settings Suction: 125 mmHg, Continuous, Intermittent Intensity: Low Other Information: Bridged, Windowpaned, Mushroomed Number of pieces: other (see note) Additonal Information Patient seen on for wound VAc Veraflow dressing change. Removed dressing with Ryanne ALLEN, Jose Luis CORTÉS and engineering technical writer.Cleansed wound to L lower abdomen with wound cleanser and pat dry.Applied skin prep to periwound and to L anterior thigh. Then applied Hudson's seal to lower abdominal crease and groin crease to seal dressing.VAC drape was bridged from wound margin at 6 o 'clock to L anterior thigh.Applied two pieces of Veraflow cleanse lopez granufoam with holes into wound bed at the base. Applied 5 pieces of solid lopez granufoam on top to fill in space. Covered granufoam with VAC drape. Cut hole in VAC drape to expose granufoam and bridged one strip of granufoam from wound bed to L anterior thigh over VAC drape. Applied Sensi trac pad with attached mushroom cap of granufoam to bridged foam on L anterior thigh. Covered all exposed VAC foam with drape to seal. VAc suction 125 mm/hg low for draw down seal check for two minutes and thirty seconds before instilling 28 ml off normal saline using fill assist. Normal saline was left in place for 10 minutes before suctioning at 125 mmm/hg low intermittent suction with low leak rate. Patient tolerated fairly with complaints of pain with granufoam placement and cleaning. Patient was premedicated for pain prior to VAC dressing application.Jose Luis CORTÉS and Ryanne ALLEN in room for VAC dressing removal and wound assessment.Jose Luis assisted with VAC dressing change.VAC settings are as follows: Draw time is 3.5 hours. Instill volume is 28 ml, Soak time is 10 minutes.Suction is low and intermittent suction. Reina Kendrick Oct 17, 2017 10:23
[2017-10-17 11:59] LABS: BICARBONATE 27.2 MEQ/L (21.0-32.0); MAGNESIUM 1.7 MG/DL (1.5-2.5); POTASSIUM 3.3 MEQ/L (3.5-5.1)
[2017-10-17 12:00] VITALS: BP 136/69; PULSE 99; RESP 16; TEMP 96.2; O2SAT 92
[2017-10-17 16:00] VITALS: BP 151/80; PULSE 106; RESP 18; TEMP 98.7; O2SAT 94
--- NOTE | 2017-10-17 16:08 | HHI.PR ---
Subjective Remarks Follow-up diabetes. Improving hyperglycemia. Resolved diarrhea. Discussed with RN Objective Vitals Vital Signs Date Time Temp Pulse Resp B/P (MAP) Pulse Ox O2 Delivery O2 Flow Rate FiO2 10/17/17 12:00 96.2 99 16 136/69 (91) 92 10/17/17 08:05 Room Air 10/17/17 08:00 98.9 114 18 138/82 (100) 96 10/17/17 04:00 96.7 104 17 151/90 (110) 95 10/17/17 00:00 100 10/17/17 00:00 97.4 110 17 157/79 (105) 94 10/16/17 23:00 110 10/16/17 20:00 97.6 108 16 152/84 (106) 97 10/16/17 19:00 97 Room Air I/O 10/16/17 10/16/17 10/16/17 10/17/17 10/17/17 10/17/17 07:00 15:00 23:00 07:00 15:00 23:00 Intake Total 340 ml 500 ml 1640 ml Output Total 920 ml 190 ml 500 ml 650 ml Balance -580 ml -190 ml 0 ml 990 ml Intake Oral 240 ml 500 ml 1440 ml IV Total 100 ml 200 ml Output Urine Total 720 ml 500 ml 650 ml Drainage Total 200 ml 190 ml # Voids 2 2 # Bowel Movements 4 1 Result Diagram: 10/16/17 0811 10/17/17 0955 Imaging Last Impressions Chest X-Ray 10/07/17 0000 Signed Impressions: Service Date/Time: Saturday, October 07, 2017 05:05 - CONCLUSION: No acute disease. There is no evidence of pneumonia. Yang Castillo MD Abdomen/Pelvis CT 10/06/172125 Signed Impressions: Service Date/Time: Friday, October 06, 2017 22:23 - CONCLUSION: 1. Abnormal subcutaneous tissues in the left lower quadrant with a large area of discharged gas, surrounding induration of the fat and extension into the left inguinal region. 2. Absent right kidney. Issac Romano MD Objective Remarks GENERAL: NAD, A&Ox3 CARDIOVASCULAR: Regular rate and rhythm without murmurs, gallops, or rubs. RESPIRATORY: Breath sounds equal bilaterally. No accessory muscle use. GASTROINTESTINAL: Abdomen soft, non-tender, nondistended. MUSCULOSKELETAL: No cyanosis, or edema. Wound VAC in place at left groin SKIN: Warm and dry. NEURO: No focal neurological deficits. Procedures Left inguinal wound vac A/P Problem List: (1) Necrotizing fasciitis ICD Code: M72.6 - Necrotizing fasciitis Status: Acute Assessment and Plan 22 year old male admitted with necrotizing fascitis at left groin, and sepsis. Necrotizing fasciitis culture with MSSA Leukocytosis. Improved Present at left groin Continue Unasyn Infectious disease following Continue to monitor cultures Wound VAC per general surgery Continue as needed pain treatments Rectal tube discontinued 10/11/17 Diabetes mellitus type 2. Improving Follow blood sugars Insulin sliding scale Diabetic diet Increase Levemir to 26 units at bedtime consider twice a day dosing or add preprandial insulin Hypopotassemia Hypomagnesium Likely related to loose stool. Continue to monitor levels Replace as needed Diarrhea on antibiotics. Improving on Lactinex. Monitor . C. difficile ordered DVT prophylaxis Heparin SCDs Discharge Planning Not ready for discharge Chuck Bravo MD Oct 17, 2017 16:08
[2017-10-17 20:00] VITALS: BP 160/88; PULSE 105; PULSE 108; RESP 19; TEMP 97; O2SAT 95
[2017-10-17] MEDS: INSULIN DETEMIR 100 UNITS/ML VIAL SQ SCH (23:08)
[2017-10-18] VITALS: BP 145/63; PULSE 108; RESP 17; TEMP 97.9; O2SAT 97
[2017-10-18] MEDS: TEMAZEPAM 15 MG CAP PO PRN (00:39)
[2017-10-18] MEDS: INSULIN NovoLIN REGULAR SUPPLEMENTAL SCALE SQ SCH ×5 (02:53→21:14)
[2017-10-18] MEDS: CHLORHEXIDINE GLUCONATE 2 % 1 PACK (2 CLOTHS) TOP SCH (02:53)
[2017-10-18 04:00] VITALS: BP 120/80; PULSE 108; RESP 17; TEMP 99.2; O2SAT 97
[2017-10-18] MEDS: AMPICILLIN-SULBACTAM INJ 3 GM in SODIUM CHLORIDE 0.9% INJ 100 ML IV SCH ×4 (06:00→21:11)
[2017-10-18] MEDS: HEPARIN SODIUM - SQ 10,000 UNITS/ML VIAL SQ SCH ×3 (06:07→21:12)
[2017-10-18 08:00] VITALS: BP 148/89; PULSE 104; RESP 17; TEMP 98.7; O2SAT 96
[2017-10-18] MEDS: MUPIROCIN 2% OINT 1 APPLIC/GM SYR EACH NARE SCH ×2 (09:00→21:00)
[2017-10-18] MEDS: LACTOBACILLUS ACIDOPHILUS TAB PO SCH ×3 (09:21→17:38)
[2017-10-18] MEDS: POTASSIUM CHLORIDE 20 MEQ CONTROLLED RELEASE TAB PO SCH ×2 (09:21→21:12)
[2017-10-18] MEDS: METOPROLOL TARTRATE 25 MG TAB PO SCH ×2 (09:21→21:14)
[2017-10-18] MEDS: FAMOTIDINE 20 MG TAB PO SCH ×2 (09:21→21:14)
[2017-10-18] MEDS: SODIUM CHLORIDE 0.9% FLUSH 10 ML FLUSH IV FLUSH SCH ×2 (09:22→21:15)
[2017-10-18 12:00] VITALS: BP 134/92; PULSE 103; RESP 17; TEMP 98.7; O2SAT 97
--- NOTE | 2017-10-18 12:01 | HHI.IDPN ---
Subjective Subjective Remarks Patient is a 22-year-old morbidly obese male, presented to the hospital complaining of draining wounds on his left lower abdominal wall. He has developed increasing pain and swelling and the drainage was foul smelling. There is no mention of any fever or chills. He denies any prior diagnosis of diabetes. He has not been sexually active in over a year. He does shave the inguinal region, mons pubis and scrotum. He states that he has had these numerous times in the past.There's been no nausea or vomiting. Imaging study showed air in the subcutaneous tissue. Gen. surgery was consult did and the patient underwent debridement of a necrotizing soft tissue infection in the left lower abdominal wall. Culture grew some skin ryan and anaerobic gram- positive cocci. His white count was initially elevated and that has improved. Patient has not really required any pressors. Currently he complains of pain on the left lower quadrant for he has to open wound. Wound VAC was placed today. He has some low-grade temps. Urgently on vancomycin and clindamycin. Infectious disease consultation has been requested to evaluate the patient. Notes reviewed Temps ok WBC down to normal Has dave wound vac in prep for D/C No rash No diarrhea NO N/V Antibiotics Current Medications Unasyn Medications (Trade) Dose Ordered Sig/Josh Route Start Time Stop Time Status Last Admin (NS Flush) 2 ml UNSCH PRN IV FLUSH 10/06/17 22:45 (NS Flush) 2 ml BID IV FLUSH 10/07/17 09:00 10/18/17 09:22 (Tylenol) 650 mg Q6H PRN PO 10/06/17 22:45 10/16/17 18:37 (Morphine Inj) 2 mg Q2H PRN IV PUSH 10/06/17 22:45 10/17/17 08:52 (Zofran Inj) 4 mg Q6H PRN IV PUSH 10/06/17 22:45 (Restoril) 15 mg HS PRN PO 10/06/17 22:45 10/18/17 00:39 (Heparin Inj) 5,000 units Q8HR SQ 10/06/17 22:45 10/18/17 06:07 Miscellaneous Information 1 Q361D XX 10/06/17 22:45 (Chlorhexidine 2% Cloth) Taper DAILY@04 TOP 10/07/17 04:00 10/03/18 03:59 (Chlorhexidine 2% Cloth) 3 pack UNSCH PRN TOP 10/06/17 22:45 (Milk Of Magnesia Liq) 30 ml Q12H PRN PO 10/06/17 22:45 (Senokot) 17.2 mg Q12H PRN PO 10/06/17 22:45 (Dulcolax Supp) 10 mg DAILY PRN RECTAL 10/06/17 22:45 (Lactulose Liq) 30 ml DAILY PRN PO 10/06/17 22:45 (Albuterol Neb) 2.5 mg Q2HR NEB PRN NEB 10/08/17 12:15 10/13/17 06:20 (D50w (Vial) Inj) 50 ml UNSCH PRN IV PUSH 10/08/17 12:30 (Glucagon Inj) 1 mg STAT PRN IM 10/08/17 12:30 (NovoLIN R SUPPLEMENTAL SCALE) 1 ACHS03 SLIDE SCALE SQ 10/08/17 17:00 10/17/17 23:08 (Bactroban Nasal 2% Oint) Taper BID EACH NARE 10/08/17 21:00 10/04/18 20:59 10/16/17 10:39 ([place] 5-325 Mg) 1 tab Q4H PRN PO 10/08/17 12:45 10/17/17 17:39 (Trandate Inj) 10 mg Q4H PRN IV PUSH 10/09/17 23:15 10/10/17 05:18 (Pepcid) 20 mg BID PO 10/10/17 21:00 10/18/17 09:21 Ampicillin Sodium/ Sulbactam Sodium 3 gm/Sodium Chloride 100 ml @ 200 mls/hr Q6H IV 10/10/17 18:00 10/17/17 23:07 (Pill Splitter) 1 ea UNSCH PRN OTHER 10/12/17 11:00 (Lopressor) 25 mg Q12HR PO 10/13/17 09:00 10/18/17 09:21 (Dilaudid Pf Inj) 1 mg MoWeFr IV 10/15/17 12:00 10/17/17 09:53 (Levemir Inj) 26 units HS SQ 10/15/17 21:00 10/17/17 23:08 (KCl) 40 meq Q12HR PO 10/16/17 21:00 10/18/17 09:21 (Lactinex) 1 tab TID PO 10/16/17 18:00 10/18/17 09:21 (Vasotec Inj) 1.25 mg Q6H PRN IV PUSH 10/16/17 16:00 (Catapres) 0.1 mg Q6H PRN PO 10/16/17 16:00 Lines PIV Past Medical History None Allergies: Uncoded Allergies: MDRO (Adverse Reaction, Unknown, 10/15/17) + MRSA PCR 10/07/17 Objective . Vital Signs Date Time Temp Pulse Resp B/P (MAP) Pulse Ox O2 Delivery O2 Flow Rate FiO2 10/18/17 08:00 98.7 104 17 148/89 (108) 96 10/18/17 04:00 99.2 108 17 120/80 (93) 97 10/18/17 00:00 97.9 108 17 145/63 (90) 97 10/17/17 20:00 105 10/17/17 20:00 Room Air 10/17/17 20:00 97.0 108 19 160/88 (112) 95 10/17/17 16:00 98.7 106 18 151/80 (103) 94 10/17/17 12:00 96.2 99 16 136/69 (91) 92 . Laboratory Tests Test 10/17/17 09:55 Blood Urea Nitrogen 4 MG/DL Creatinine 0.66 MG/DL Random Glucose 110 MG/DL Calcium Level 8.3 MG/DL Magnesium Level 1.7 MG/DL Sodium Level 139 MEQ/L Potassium Level 3.3 MEQ/L Chloride Level 104 MEQ/L Carbon Dioxide Level 27.2 MEQ/L Anion Gap 8 MEQ/L Estimat Glomerular Filtration Rate 185 ML/MIN Imaging Last Impressions Chest X-Ray 10/07/17 0000 Signed Impressions: Service Date/Time: Saturday, October 07, 2017 05:05 - CONCLUSION: No acute disease. There is no evidence of pneumonia. Yang Castillo MD Abdomen/Pelvis CT 10/06/172125 Signed Impressions: Service Date/Time: Friday, October 06, 2017 22:23 - CONCLUSION: 1. Abnormal subcutaneous tissues in the left lower quadrant with a large area of discharged gas, surrounding induration of the fat and extension into the left inguinal region. 2. Absent right kidney. Issac Romano MD Physical Exam GENERAL: Patient is an obese, well-developed patient, awake and alert, NAD SKIN: Warm and dry. Has hyperpigmented scars on his anterior abdominal wall that looks like prior abscesses which he said are due to his pants HEAD: Atraumatic. Normocephalic. No temporal wasting, or tenderness. EYES: [place] conjunctiva. No petechia or hemorrhage. Pupils equal, round and reactive to light. Extraocular movements full and intact. No scleral icterus. EARS, NOSE AND THROAT: Nose without bleeding or purulent nasal discharge. No sinus tenderness. Mucous membranes pink and moist. No oral lesions noted. NECK: Trachea midline. Supple and not tender, no meningeal signs CARDIOVASCULAR: Regular rate and rhythm. No murmurs, rubs or gallops heard RESPIRATORY: Clear to auscultation. Breath sounds equal bilaterally. No rales , wheezing or rhonchi ABDOMEN: Soft, obese, nondistended. Bowel sounds present and normoactive. Wound vac in place LLQ, still with induration around the open wound, but erythema looks less, tender on palpation EXTREMITIES: No clubbing, cyanosis, or edema. No calf tenderness. Well perfused and warm. NEUROLOGICAL: Awake and alert. Cranial nerves grossly intact. Motor grossly within normal limits. PSYCHIATRIC: Normal affect, calm and cooperative. LINE: No evidence of infection Assessment & Plan Remarks IMPRESSION Necrotizing soft tissue infection L lower abdominal wall, patient with morbid obesity and new DM - S/P debridement, has wound vac in place Morbid obesity Low grade temps, better Leukocytosis, resolved New DM RECOMMENDATION Continue IV Unasyn while in hospital When discharge: Augmentin 500 mg po TID x 14 days Clinically doing well from ID standpoint I will sign off Please reconsult if with any new ID issue or question Albania Benson MD Oct 18, 2017 12:01
--- NOTE | 2017-10-18 14:01 | HHI.PR ---
Subjective Remarks Follow-up diabetes mellitus and hypertension. Improving hyperglycemia however BP remains elevated. Patient has no complaints. Discussed with RN Objective Vitals Vital Signs Date Time Temp Pulse Resp B/P (MAP) Pulse Ox O2 Delivery O2 Flow Rate FiO2 10/18/17 12:00 98.7 103 17 134/92 (106) 97 10/18/17 08:00 98.7 104 17 148/89 (108) 96 10/18/17 04:00 99.2 108 17 120/80 (93) 97 10/18/17 00:00 97.9 108 17 145/63 (90) 97 10/17/17 20:00 105 10/17/17 20:00 Room Air 10/17/17 20:00 97.0 108 19 160/88 (112) 95 10/17/17 16:00 98.7 106 18 151/80 (103) 94 I/O 10/17/17 10/17/17 10/17/17 10/18/17 10/18/17 10/18/17 07:00 15:00 23:00 07:00 15:00 23:00 Intake Total 1640 ml 500 ml 500 ml Output Total 650 ml 2200 ml 900 ml Balance 990 ml -1700 ml -400 ml Intake Oral 1440 ml 400 ml 500 ml IV Total 200 ml 100 ml Output Urine Total 650 ml 2200 ml 900 ml # Voids 2 # Bowel Movements 2 1 Result Diagram: 10/16/17 0811 10/17/17 0955 Imaging Last Impressions Chest X-Ray 10/07/17 0000 Signed Impressions: Service Date/Time: Saturday, October 07, 2017 05:05 - CONCLUSION: No acute disease. There is no evidence of pneumonia. Yang Castillo MD Abdomen/Pelvis CT 10/06/172125 Signed Impressions: Service Date/Time: Friday, October 06, 2017 22:23 - CONCLUSION: 1. Abnormal subcutaneous tissues in the left lower quadrant with a large area of discharged gas, surrounding induration of the fat and extension into the left inguinal region. 2. Absent right kidney. Issac Romano MD Objective Remarks GENERAL: NAD, A&Ox3 CARDIOVASCULAR: Regular rate and rhythm without murmurs, gallops, or rubs. RESPIRATORY: Breath sounds equal bilaterally. No accessory muscle use. GASTROINTESTINAL: Abdomen soft, non-tender, nondistended. MUSCULOSKELETAL: No cyanosis, or edema. Wound VAC in place at left groin SKIN: Warm and dry. NEURO: No focal neurological deficits. Procedures Left inguinal wound vac A/P Problem List: (1) Necrotizing fasciitis ICD Code: M72.6 - Necrotizing fasciitis Status: Acute Assessment and Plan 22 year old male admitted with necrotizing fascitis at left groin, and sepsis. Necrotizing fasciitis culture with MSSA. Stable Leukocytosis. Improved Present at left groin Continue Unasyn while in-house per ID. Switch to Augmentin 500 mg 3 times a day outpatient Infectious disease following Continue to monitor cultures Wound VAC per general surgery Continue as needed pain treatments Rectal tube discontinued 10/11/17 Diabetes mellitus type 2. Improving Follow blood sugars Insulin sliding scale Diabetic diet Increase Levemir to 26 units at bedtime consider twice a day dosing or add preprandial insulin Hypopotassemia Hypomagnesium Likely related to loose stool. Continue to monitor levels Replace as needed Diarrhea on antibiotics. Improving on Lactinex. Monitor . C. difficile ordered DVT prophylaxis Heparin SCDs Discharge Planning Possible discharge tomorrow when cleared by general surgery Chuck Bravo MD Oct 18, 2017 14:01
[2017-10-18 16:00] VITALS: BP 143/81; PULSE 105; RESP 17; TEMP 98.8; O2SAT 95
[2017-10-18] MEDS: ACETAMINOPHEN/HYDROcodone 325 MG/5 MG TAB PO PRN (18:23)
[2017-10-18] MEDS: INSULIN DETEMIR 100 UNITS/ML VIAL SQ SCH (21:14)
[2017-10-18 22:17] VITALS: BP 142/85; PULSE 104; RESP 20; TEMP 97.9; O2SAT 97
[2017-10-19 00:30] VITALS: BP 120/64; PULSE 64; PULSE 97; RESP 18; TEMP 98.8; O2SAT 99
[2017-10-19] MEDS: INSULIN NovoLIN REGULAR SUPPLEMENTAL SCALE SQ SCH ×4 (03:00→17:33)
[2017-10-19] MEDS: ACETAMINOPHEN/HYDROcodone 325 MG/5 MG TAB PO PRN ×2 (03:29→10:19)
[2017-10-19] MEDS: CHLORHEXIDINE GLUCONATE 2 % 1 PACK (2 CLOTHS) TOP SCH (03:40)
[2017-10-19 04:50] VITALS: BP 130/69; PULSE 110; RESP 20; TEMP 97.2; O2SAT 97
[2017-10-19] MEDS: HEPARIN SODIUM - SQ 10,000 UNITS/ML VIAL SQ SCH ×2 (05:27→13:08)
[2017-10-19] MEDS: AMPICILLIN-SULBACTAM INJ 3 GM in SODIUM CHLORIDE 0.9% INJ 100 ML IV SCH ×2 (05:27→11:31)
--- NOTE | 2017-10-19 07:40 | HHI.FF ---
Face to Face Verification Diagnosis: (1) Necrotizing fasciitis Physical Therapy Order: Evaluate and Treat, Improve ambulation, Strength and gait training Home Health Nursing Order: Medical education Signs/symptoms of disease process Diabetic education Medication education-adverse effect Wound care and dressing changes Nursing assessment with vital signs I have seen patient Dejon Sanderson, III on 10/19/17. My clinical findings support the need for the requested home health care services because: Ltd mobility - disease progression Deconditioned w/ increased weakness I certify that my clinical findings support that this patient is homebound because: Post-op weakness Need for psychosocial assistance Chuck Bravo MD Oct 19, 2017 07:40
--- NOTE | 2017-10-19 07:40 | HHI.DCPOC ---
Discharge Care Plan Diagnosis: (1) Necrotizing fasciitis Your Health Problems Are: Difficulty with ADL Exercise Tolerance Goals to Promote Your Health * To prevent worsening of your condition and complications * To maintain your health at the optimal level Directions to Meet Your Goals Take your medications as prescribed Follow your dietary instruction Follow activity as directed Keep your appointments as scheduled Take your immunizations and boosters as scheduled If your symptoms worsen call your PCP, if no PCP go to Urgent Care Center or Emergency Room Smoking is Dangerous to Your Health. Avoid second hand smoke Call the 24-hour hour crisis hotline for domestic abuse at Chuck Bravo MD Oct 19, 2017 07:40
[2017-10-19 08:00] VITALS: BP 131/86; PULSE 96; RESP 17; TEMP 96.3; O2SAT 96
[2017-10-19] MEDS: MUPIROCIN 2% OINT 1 APPLIC/GM SYR EACH NARE SCH (08:47)
[2017-10-19] MEDS: POTASSIUM CHLORIDE 20 MEQ CONTROLLED RELEASE TAB PO SCH (08:48)
[2017-10-19] MEDS: LACTOBACILLUS ACIDOPHILUS TAB PO SCH ×2 (08:48→13:08)
[2017-10-19] MEDS: METOPROLOL TARTRATE 25 MG TAB PO SCH (08:48)
[2017-10-19] MEDS: SODIUM CHLORIDE 0.9% FLUSH 10 ML FLUSH IV FLUSH SCH (08:48)
[2017-10-19] MEDS: FAMOTIDINE 20 MG TAB PO SCH (08:48)
[2017-10-19] MEDS ORDERED: METO25TA3 PO (10:22)
[2017-10-19] MEDS ORDERED: AUGM500T7 PO (10:22)
[2017-10-19] MEDS ORDERED: GLUCKIT15 (10:22)
[2017-10-19] MEDS ORDERED: GLUCTES12 (10:22)
[2017-10-19] MEDS ORDERED: POTA20TA5 PO (10:22)
[2017-10-19] MEDS ORDERED: HYDR-3516 PO (10:22)
[2017-10-19] MEDS ORDERED: LEVEMIR SQ (10:22)
[2017-10-19] MEDS ORDERED: INSU1MIS15 (10:22)
[2017-10-19] MEDS ORDERED: BIOM30MI (10:22)
[2017-10-19] MEDS ORDERED: LANCETS1 MI1 (10:22)
--- NOTE | 2017-10-19 10:57 | HHI.DS ---
Discharge Summary Admission Date Oct 06, 2017 at 22:50 Discharge Date: Oct 19, 2017 Admitting Diagnosis Severe Sepsis, Necrotizing Fasciitis. (1) Necrotizing fasciitis ICD Code: M72.6 - Necrotizing fasciitis Diagnosis: Principal Status: Acute Procedures Left inguinal wound vac Brief History - From Admission 22-year-old morbidly obese very pleasant gentleman presents with complaints of draining abscess on his scrotal region/inguinal region. He states that this began about one week ago and he tried home remedies with hot compresses. The lesion began draining a purulent foul smelling material. He does admit fevers, chills, nausea, vomiting. No SOB or CP. No headaches or vision changes. He has not been sexually active in over a year. He does shave the inguinal region, mons pubis and scrotum. He states that he has had these numerous times in the past. CBC/BMP: 10/16/17 0811 10/17/17 0955 Significant Findings Laboratory Tests Test 10/17/17 09:55 Blood Urea Nitrogen 4 MG/DL (7-18) Random Glucose 110 MG/DL (74-106) Calcium Level 8.3 MG/DL (8.5-10.1) Potassium Level 3.3 MEQ/L (3.5-5.1) Imaging Last Impressions Chest X-Ray 10/07/17 0000 Signed Impressions: Service Date/Time: Saturday, October 07, 2017 05:05 - CONCLUSION: No acute disease. There is no evidence of pneumonia. Yang Castillo MD Abdomen/Pelvis CT 10/06/172125 Signed Impressions: Service Date/Time: Friday, October 06, 2017 22:23 - CONCLUSION: 1. Abnormal subcutaneous tissues in the left lower quadrant with a large area of discharged gas, surrounding induration of the fat and extension into the left inguinal region. 2. Absent right kidney. Issac Romano MD PE at Discharge GENERAL: NAD, A&Ox3 CARDIOVASCULAR: Regular rate and rhythm without murmurs, gallops, or rubs. RESPIRATORY: Breath sounds equal bilaterally. No accessory muscle use. GASTROINTESTINAL: Abdomen soft, non-tender, nondistended. MUSCULOSKELETAL: No cyanosis, or edema. Wound VAC in place at left groin SKIN: Warm and dry. NEURO: No focal neurological deficits. Hospital Course 22 year old male admitted with necrotizing fascitis at left groin, and sepsis. Necrotizing fasciitis culture with MSSA. Stable Leukocytosis. Improved Present at left groin Continue Unasyn while in-house per ID. Switch to Augmentin 500 mg 3 times a day outpatient Infectious disease following Continue to monitor cultures Wound VAC per general surgery Continue as needed pain treatments counseled regarding narcotics Diabetes mellitus type 2. Improving Follow blood sugars Insulin sliding scale Diabetic diet Increase Levemir to 26 units at bedtime consider twice a day dosing or add preprandial insulin Hypertension tachycardia improving on Lopressor Obesity. Weight reduction Hypopotassemia Hypomagnesium Likely related to loose stool. Continue to monitor levels Replace as needed Diarrhea on antibiotics. Improving on Lactinex. Monitor . C. difficile ordered DVT prophylaxis Heparin SCDs Pt Condition on Discharge: Stable Discharge Disposition: Disch w/ Home Health Serv Discharge Time: > 30 minutes Discharge Instructions DIET: Follow Instructions for: Heart Healthy Diet, Diabetic Diet Activities you can perform: Regular-No Restrictions Activities to Avoid: Driving Follow up Referrals: PCP Follow-up - 1 Week Surgical - 10/29/17 Appt set for Oct 29 at 4:30PM with Dr. Verduzco New Orders: BASIC METABOLIC PROF - 10/22/17 New Medications: Amoxicillin-Clavulanate (Augmentin) 500-125 mg Tab 500 MG PO Q8H for Infection, #42 TAB 0 Refills Blood Glucose Monitoring W/Device (Glucocom Blood Glucose Mo W/Device) 1 Kit Kit KIT .ROUTE DIRECTED for Blood Sugar Management, #1 Glucocom Test Strips (Glucocom Test Strips) 1 Tabby Tabby EA .ROUTE DIRECTED for Blood Sugar Management, #1 Insulin Detemir Inj (Levemir Inj) 1,000 unit/ 10 ML Vial 26 UNITS SQ HS for Blood Sugar Management, #30 VIAL 0 Refills Do not mix with any other Insulin. Insulin Syringe/U-100/31G X 5/16" 1 ml (Insulin Syringe/U-100/31G X 5/16" 1 ml) 31 Gauge X 5/16" Mis EA .ROUTE DIRECTED for Blood Sugar Management, #1 0 Refills Lancets (Lancets) 1 Mis Mis EA .ROUTE DIRECTED for Blood Sugar Management, #1 0 Refills Parenteral Therapy Supplies (Sharpsafety Sharps Contai) 1 Mis Mis EA .ROUTE DIRECTED, #1 0 Refills Hydrocodone/Acetaminophen (Hydrocodone-Acetamin 5-325 mg) 5 Mg-325 Mg Tablet 1 TAB PO Q6HR PRN for pain 1-5, #28 TAB Metoprolol Tartrate (Metoprolol Tartrate) 25 Mg Tab 50 MG PO Q12HR for Blood Pressure Management, #60 TAB Potassium Chloride Microencaps (Potassium Chloride Microencaps) 20 Meq Tab 40 MEQ PO QD for Electrolyte Replacement, #2 TAB Chuck Bravo MD Oct 19, 2017 10:57
[2017-10-19] MEDS: HYDROmorphone HCL PF 1 MG/ML VIAL IV SCH (11:31)
--- NOTE | 2017-10-19 11:50 | HHI.PR ---
Subjective Subjective Notes Resting in bed Agrees to try to do Wound Vac change without IV pain medications Objective Vitals/I&O Vital Signs Date Time Temp Pulse Resp B/P (MAP) Pulse Ox O2 Delivery O2 Flow Rate FiO2 10/19/17 08:00 96.3 96 17 131/86 (101) 96 10/17/17 20:00 Room Air 10/15/17 09:13 21 Labs Date/Time Source Procedure Growth Status 10/06/17 21:45 Blood Peripheral Aerobic Blood Culture - Final NO GROWTH IN 5 DAYS Complete 10/06/17 21:45 Blood Peripheral Anaerobic Blood Culture - Final NO GROWTH IN 5 DAYS Complete 10/07/17 02:00 Tissue Abdomen Gram Stain - Final Complete 10/07/17 02:00 Wound Culture - Final Anaerobic Gram Positive Cocci Complete Cardiovascular: Regular Lungs: Clear Abdomen: Non-distended, Non-tender, Other (see below about wound ) Extremities: No edema Narrative Exam Large LEFT lower quadrant s/p I&D--- Wound vac removed--- far less exudate in wound bed; beefy red areas; thoroughly cleaned and Wound Vac applied A/P Assessment and Plan 22 year old male s/p I&D of LEFT lower quadrant abdomen abscess -Diabetic diet -Plan for Wound Vac change MWF ---done today ---Placed regular black sponge back in wound -ID following for antibiotics---going home on PO antibiotics -Discussed with REX Huang with Wound Care who was present for dressing change -GS cleared for DC -Follow up appt with Dr. Verduzco set for Oct 29 at 4:30PM ---will plan to change Wound Vac in office Ryanne Lepe Oct 19, 2017 11:50
[2017-10-19 12:00] VITALS: BP 150/96; PULSE 99; RESP 17; TEMP 98.4; O2SAT 97
[2017-10-19] MEDS ORDERED: WALKER WHEELS/F1 MIS (13:55)
--- NOTE | 2017-10-19 14:08 | PD.WCN.NOT ---
Neg Pressure Wound Therapy Wound Location Wound Location: L lower Abdomen Wound Description Wound bed appearance: Wound bed presents with clean ~70% red granulation tissue,~ 20% yellow exudate, ~10% yellow slough. Wound is vascular draining minimal amount of sanguinous drainage without odor Periwound appearance: Unremarkable Settings Suction: 125 mmHg, Continuous, Intermittent Intensity: Low Other Information: Bridged, Windowpaned, Mushroomed Foam type: Black Number of pieces: 2 Additonal Information Patient seen on for wound VAC dressing change. Removed dressing with Ryanne ALLEN, Jose Luis CORTÉS and senior underwriter.Cleansed wound to L lower abdomen with wound cleanser and pat dry.Patient was allowed to shower, before applying wound VAC.Applied skin prep to periwound and to L anterior thigh. VAC drape was bridged from wound margin at 6 o'clock to L anterior thigh.Applied 1 long strip of granufoam to wound bed, and then applied second piece of granufoam between 10 and 11 o'clock. Covered granufoam with VAC drape. Cut hole in VAC drape to expose granufoam and bridged one strip of granufoam from wound bed to L anterior thigh over VAC drape. Applied Sensi trac pad with attached mushroom cap of granufoam to bridged foam on L anterior thigh. Covered all exposed VAC foam with drape to seal. VAC suction 125 mm/hg low continuous suction. Patient tolerated fairly with complaints of pain with granufoam placement and cleaning. Patient was premedicated for pain with oral medication, prior to VAC dressing application.Jose Luis CORTÉS and Ryanne ALLEN in room for VAC dressing removal and wound assessment.Jose Luis assisted with VAC dressing change. Reina Kendrick Oct 19, 2017 14:08
[2017-11-06] MEDS ORDERED: GLYCOPYRROLATE 1 MG/5 ML SYRINGE IV PUSH ONE (12:00)
[2017-11-06] MEDS ORDERED: SUCCINYLCHOLINE CHLORIDE 100 MG/5 ML SYRINGE IV PUSH ONE (12:00)
[2017-11-06] MEDS ORDERED: NEOSTIGMINE 3 MG/3 ML SYR IV ONE (12:00)
[2017-11-06] MEDS ORDERED: PHENYLEPH/NS 1000 MCG/10 ML SYR IV ONE (12:00)
[2017-11-06] MEDS ORDERED: MIDAZOLAM HCL 2 MG/2 ML VIAL IV ONE (12:00)
[2017-11-06] MEDS ORDERED: PROPOFOL 200 MG/20 ML AMP IV ONE (12:00)
[2017-11-06] MEDS ORDERED: ROCURONIUM INJ 50 MG/5 ML SYRINGE IV PUSH ONE (12:00)
[2017-11-06] MEDS ORDERED: LIDOCAINE HCL 1% PF 5 ML SYRINGE OTHER ONE (12:00)
[2017-11-06] MEDS ORDERED: ESMOLOL HCL 100 MG/10 ML VIAL IV ONE (12:00)
== END 2017-10-19 17:39 | disposition home health service (06) | DRG 853 ==
LOC: NEPE 20:49 → NEDA 22:50 → N03B 10-07 03:40 → N07B 10-10 22:15
PROVIDERS: ADMIT Internal Medicine; ATTEND Internal Medicine
PROC: 0KBL0ZZ Excision of Left Abdomen Muscle, Open Approach (ICD-10-PCS; principal; 2017-10-07 01:32)
DX: A41.9 Sepsis, unspecified organism (principal); M72.6 Necrotizing fasciitis; K52.1 Toxic gastroenteritis and colitis; E87.1 Hypo-osmolality and hyponatremia; Z68.42 Body mass index [BMI] 45.0-49.9, adult; R65.20 Severe sepsis without septic shock; E11.65 Type 2 diabetes mellitus with hyperglycemia; E66.01 Morbid (severe) obesity due to excess calories; T36.95XA Adverse effect of unspecified systemic antibiotic, initial encounter; B95.61 Methicillin susceptible Staphylococcus aureus infection as the cause of diseases classified elsewhere; R00.0 Tachycardia, unspecified; I10 Essential (primary) hypertension; E87.6 Hypokalemia; E83.42 Hypomagnesemia
CPT/HCPCS: 71010; 74177; 76937; 80048; 80053; 80202; 81001; 82550; 82552; 82565; 82805; 82947; 82948; 83036; 83605; 83690; 83735; 84100; 84132; 84484; 85007; 85025; 85027; 85384; 85610; 85652; 85730; 86140; 86850; 86900; 86901; 87015; 87040; 87070; 87102; 87116; 87185; 87205; 87206; 87641; 88305; 94150; 94640; 94664; 96374; J0295; J0330; J1170; J1644; J1817; J2250; J2270; J2370; J2543; J2710; J3010; J3370; J3475; J3480; J7030; J7040; J7050; J7613; Q9967